=== PATIENT | male | born 1950 | race Caucasian/White ===

== ENCOUNTER 2024-12-09 19:55 | Inpatient (IN) | payer MEDICARE, OTHER, SELFPAY ==
[2024-12-09] VITALS (19 sets, daily range): BP systolic 92–119; BP diastolic 59–104; BMI 22.2; BMI 23.9
[2024-12-09 14:32] LABS: % Basophils 0.5 % (0-2); % Eosinophils 0.3 % (0-6); % Immature Granulocytes 0.5 % (0-0.5); % Monocytes 11.2 % (1.7-9.3); % Neutrophils 68.5 % (42.2-75.2); Absolute Basophils 0.1 10^3/uL (0-0.2); Absolute Immature Granulocytes 0.1 10^3/uL (0-0.05); Absolute Lymphocytes 1.9 10^3/uL (1.2-3.4); Absolute Monocytes 1.1 10^3/uL (0.1-0.6); Absolute Neutrophils 6.8 10^3/uL (1.4-6.5); Hematocrit 40.9 % (39.0-52.0); Hemoglobin 14.2 g/dL (13.0-18.0); Mean Corp Hgb Conc. 34.7 g/dL (33.0-37.0); Mean Corpuscular Hgb 30.9 pg (27.0-31.0); Mean Corpuscular Volume 88.9 fL (80.0-94.0); Mean Platelet Volume 11.4 fL (7.4-10.4); Nucleated Red Blood Cells % 0 % (-); Platelet Count 235 10^3/uL (130-400); Red Cell Dist. Width 14.7 % (11.5-14.5); White Blood Cell Count 9.9 10^3/uL (4.8-10.8)
[2024-12-09 14:56] LABS: ALT (SGPT) 245 U/L (0-50); AST (SGOT) 172 U/L (17-59); Albumin 4.5 g/dl (3.5-5.0); Alkaline Phosphatase 90 U/L (38-126); Blood Urea Nitrogen 50 mg/dl (9-20); Calcium 9.6 mg/dl (8.4-10.2); Carbon Dioxide 19 mmol/L (22-30); Chloride 102 mmol/L (98-107); Estimated Creatinine Clearance 39 ml/min; Glucose 121 mg/dl (70-99); Potassium 5.6 mmol/L (3.5-5.1); Sodium 128 mmol/L (135-145); Total Bilirubin 3.5 mg/dl (0.2-1.3); Total Protein 6.5 g/dl (6.3-8.2); Troponin I 0.025 ng/ml
--- NOTE | 2024-12-09 16:18 | CON.CAR ---
Addendum entered and electronically signed by Fracisco Aguilar DO 12/10/24 09:07:
I saw and examined the patient 12/09/2024 4:45PM
The Respiratory Therapy Aide's note was reviewed and I agree with the note.
Comment:
Plan:
He has had progressive dyspnea and has had outpt eval with his physician practice coordinator and [facility] CT surgery as well as CT surgery at [facility]. He is s tentative for MV surgery in December 2024 pending outpt testing which is already scheduled including cath (12/30),
KACY (12/20), CT Angio chest (12/24). He presents with newer onset AFib and has been started on Eliquis and Toprol by his physician practice coordinator.
With progressive dyspnea, he has presented to as he did not want to go to [facility]. Appears to be in HF and will give Lasix 40 mg IV X 1 and monitor daily wts and Is and cr. He has RI and elevated LFTs and pBNP.
IV Cardizem for rate control for aFib with transition back to oral AV jay blocking therapy. He may require KACY/cv if we are unable to get adequate rate control and symptom improvement. His MV can be evaluated at that time if he ends up requiring
KACY.
Check 2D echo
Records requested from [facility].
Discussed with son at bedside. They were appreciative.
Original Note:
Consultation
Consultation Request
Date/Time Consultation Requested: 12/09/24
Date/Time Consultation Performed: 12/09/24
Requesting Provider: Dr. Larsen in the ER
Performing Provider: Dr. Aguilar
Reason for Consultation: A-fib with rapid ventricular response
Medical History
-
History of Present Illness:
Patient is a 74-year-old male with past medical history significant for asthma, GERD, chronic mild elevation of LFTs and mitral valve regurgitation RASCON associated with exertional dizziness and palpitations. Patient reports around Thanksgiving of
2023 started noticing functional decline and reduced exercise tolerance. He was found to have moderate mitral regurgitation on echo in April 2024. He underwent stress echo in September 2024 which demonstrated severe mitral regurgitation with
moderate tricuspid regurgitation and severe pulmonary hypertension with PAP of 75 mmHg. Stress test did not show any acute ischemia. He did CT surgery Dr. Jeff at [facility] regarding discussion of mitral valve surgery. He
reported he wanted to wait until the fall and has not had a catheterization. Patient reports 2 weeks ago he developed significant GI illness with nausea and vomiting. Since that time he is felt poorly with poor appetite, abdominal bloating,
progressively worsening shortness of breath, exertional dizziness list/lightheadedness and palpitations. He purchased a smart watch who told him he was in atrial fibrillation and PCP started Toprol 25 mg and Eliquis within the last week. Patient's
symptoms have progressed and he was told to come to emergency room for evaluation. Patient's initial ECG is Afib with RVR. Labs with several abnormalities of unknown chronicity including Cre of 1.7, potassium 5.6, sodium 128 and AST/ALT 172/245,
all labs are being evaluated without previous for comparison. Initial Troponin was normal at 0.025 and pro-BNP 4880. CXR read as small B/L pleural effusions.
PMH:
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
Severe PHTN
RBBB of unknown chronicity
Asthma
GERD
Past Medical History
Past Medical History: Other (in HPI)
Past Surgical History: Other (hernia repair)
Social History
Tobacco: Former Smoker (Remote smoking in college)
Alcohol: Daily (1 to 2 glasses of bourbon or wine daily)
Drug: None
Personal:
Living: With Family
Employment: Retired
Family History
Family History: CAD (Brother had CO and at 62) and Cancer (Mother)
Allergies / Home Medications
Allergy/AdvReac Type Severity Reaction Status Date / Time
No Known Allergies Allergy Unverified 12/09/24 14:10
Review of Systems
-
History Source: Patient
All other systems: Negative unless noted
Physical Exam
Vital Signs
Pulse Resp BP Pulse Ox
126 22 113/80 98
12/09/24 14:45 12/09/24 14:45 12/09/24 14:05 12/09/24 14:45
GEN: No distress, awake, Ox3, lying in bed
HEENT: supple, mild scleral icterus, mmm
LUNGS: Diminished breath sounds at bases with few fine crackles CTA, no wheezes/rales
CV: Irregularly irregular, tachycardic, S1/S2, 3/6 blowing murmur at apex associated with click
ABD: soft, BS+, NT/ND
EXT: Trace edema, no clubbing or cyanosis
NEURO: Gross non-focal
SKIN: No rash, warm, dry, pink
Lab Results
12/09/24 14:16
12/09/24 14:16
Troponin I 0.025 ng/ml 12/09/24 14:16
Impression / Plan
-
PCP: Brian James
Card: Dr. [facility]
Cardiothoracic surgeon Dr. Jeff at [facility]
Impression:
Presents 12/09/2024 with progressively worsening dyspnea on exertion, exertional shortness of breath, palpitations
Atrial fibrillation with rapid ventricular response
Acute HF with preserved ejection fraction, proBNP 4880
Abnormal LFTs
IVORY
Hyperkalemia
Hyponatremia
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
Severe PHTN
RBBB of unknown chronicity
Asthma
GERD
Echo 05/22/2024: EF 6060 to 65%. No regional LV wall motion abnormalities. LVH. Grade 2 diastolic dysfunction. Severe left atrial dilation with left atrium volume index severely increased. Normal RV size and function. Moderate mitral
regurgitation with posterior leaflet moderately prolapsed.
Stress echo 10/04/2024: Baseline echo EF 60 to 65%. Moderately dilated LA, mild dilated RA. Severe mitral regurgitation with prolapse of posterior leaflet. Moderate tricuspid regurgitation with PAP of 75 mmHg. 9 minutes on Ren protocol achieving
92% predicted max heart rate. No wall motion abnormalities appeared at stress. Severe mitral regurgitation post exercise
Plan:
- Presents 12/09/2024 with progressively worsening dyspnea on exertion, exertional shortness of breath, palpitations
- Found to be in Atrial fibrillation with rapid ventricular response with right bundle branch block. Appears to be new diagnosis within last 2 weeks probably exacerbated by severe MR.. Was started on Toprol 25 mg and Eliquis 5 mg twice a day as
outpatient within last week. Hold Toprol for now
- Will start IV diltiazem drip for rate control. If unable to tolerate due to hypotension could consider KACY/CV.
- Continue Eliquis 5 mg twice a day
- Acute HF with preserved ejection fraction, proBNP 4880. Likely exacerbated by severe MR/MVP and atrial fibrillation with rapid ventricular response
- Give 40 mg IV Lasix now. Monitor and assess response
- Abnormal LFTs. Patient reports he always has mildly elevated LFTs. Possibly hepatic congestion. He does admit to having GI illness approximately 2 weeks ago with nausea and vomiting. Would consider imaging of abdomen.
- IVORY with patient reported previous normal creatinine. Possibly cardiorenal syndrome. Monitor with IV diuresis
- Electrolyte derangement with hyperkalemia, potassium 5.6 and Hyponatremia sodium 128. Follow closely with diuresis. Repeat labs in a.m.
- Would repeat echocardiogram this admission
-Outpatient cardiology records as well as CT surgeon consultation from [facility] obtained and reviewed.
- Plan discussed with patient and son who was at bedside
HPI 12/09/2024:
Patient is a 74-year-old male with past medical history significant for asthma, GERD, chronic mild elevation of LFTs and mitral valve regurgitation RASCON associated with exertional dizziness and palpitations. Patient reports around Thanksgiving of
2023 started noticing functional decline and reduced exercise tolerance. He was found to have moderate mitral regurgitation on echo in April 2024. He underwent stress echo in September 2024 which demonstrated severe mitral regurgitation with
moderate tricuspid regurgitation and severe pulmonary hypertension with PAP of 75 mmHg. Stress test did not show any acute ischemia. He did CT surgery Dr. Jeff at [facility] regarding discussion of mitral valve surgery. He
reported he wanted to wait until the fall and has not had a catheterization. Patient reports 2 weeks ago he developed significant GI illness with nausea and vomiting. Since that time he is felt poorly with poor appetite, abdominal bloating,
progressively worsening shortness of breath, exertional dizziness list/lightheadedness and palpitations. He purchased a smart watch who told him he was in atrial fibrillation and PCP started Toprol 25 mg and Eliquis within the last week. Patient's
symptoms have progressed and he was told to come to emergency room for evaluation. Patient's initial ECG is Afib with RVR. Labs with several abnormalities of unknown chronicity including Cre of 1.7, potassium 5.6, sodium 128 and AST/ALT 172/245,
all labs are being evaluated without previous for comparison. Initial Troponin was normal at 0.025 and pro-BNP 4880. CXR read as small B/L pleural effusions.
Data Reviewed
-
EKG: Report Reviewed by me, Discussed with Physician, Discussed with Patient and Discussed with Family
Radiology: Report Reviewed by me, Discussed with Physician, Discussed with Patient and Discussed with Family
Labs: Labs Reviewed by me, Discussed with Physician, Discussed with Patient and Discussed with Family
Old Records: Reviewed
[2024-12-09 16:19] LABS: NT-proBNP 4880 pg/ml
--- NOTE | 2024-12-09 16:31 | ED.GENMED ---
History of Present Illness
General
Chief Complaint: Cardiac Symptoms
Time Seen by Provider: 12/09/24 15:10
History of Present Illness
History of Present Illness:
74-year-old male with history of mitral valve regurgitation and pulmonary hypertension presenting to the emergency department for worsening dyspnea. Patient reports symptoms have been ongoing for several months, however have seemed to worsen in the
past several weeks. Notes dizziness upon standing, worsening dyspnea with any type of exertion, orthopnea, lower extremity edema. Reports that he was out of state on a trip. He got a watch that did that he was in A-fib. He called his
licensing registration examiner, who is through [facility]. Exit Booth Agent started him on Eliquis 3 days ago, as well as metoprolol for suspected new onset A-fib. Does note some chest discomfort. Also reports decreased appetite. He follows with a cardiothoracic
surgeon at [place], is scheduled to get his mitral valve repaired at some point in the near future. Denies fever. Denies abdominal pain. Denies additional acute medical complaint
Phy Exam
Physical Exam
Physical Exam:
General: Well-appearing, no clinical signs of dehydration, nontoxic and in no acute distress
HEENT: protecting airway
Neck: appears supple
CV: Irregularly irregular rhythm, tachycardic
Resp: No accessory muscle use, no increased work of breathing, crackles at the bases
Abd: No distention
Extremities: No deformities, mild lower extremity pitting edema without any erythema or warmth
Neuro: alert, no focal neurologic deficit
: deferred
Rectal: deferred
Psych: Normal affect
Skin: Intact
Course
Orders/Labs/Results
Orders:
Orders
12/09/24 14:00
Electrocardiogram (*1) Urgent
Reason for Study: Palpitations
EKG- Treatment ONCE
12/09/24 14:16
Complete Blood Count/With Diff Urgent
Comprehensive Metabolic Panel Urgent
NT-proBNP Urgent
Comment: ADD ON
Troponin I Urgent
12/09/24 15:34
Add On- LAB Urgent
Tests Added?: BNP
CR Chest - 2 Views Urgent
Comment:
Reason For Exam: SOB
12/09/24 17:13
Furosemide [Lasix] 40 mg IV NOW STA
12/09/24 17:22
Echo 2D MMode Color/Doppler [Echo 2D MMode Color/Doppler] Routine
Reason for Study: Atrial fibrillation with rapid ventricular response, severe MR
Cardiology Consult: Fracisco Aguilar
12/09/24 17:30
Diltiazem 125 mg/125 ml Nss [Cardizem] 125 mg in 125 ml IV PER PROTOCOL
Continuous dose without titration in mg/hr:: 5
Additional Titration Instructions:: Do not titrate. Rate change by provider order only.
Abnormal Lab Results
12/09/24
14:16
RBC 4.60 L 10^6/uL
(4.70-6.10)
RDW 14.7 H %
(11.5-14.5)
MPV 11.4 H fL
(7.4-10.4)
Abs Immat Gran (auto) 0.1 H 10^3/uL
(0-0.05)
Absolute Neuts (auto) 6.8 H 10^3/uL
(1.4-6.5)
Absolute Monos (auto) 1.1 H 10^3/uL
(0.1-0.6)
Lymphocytes % 19.0 L %
(20.5-51.1)
Monocytes % 11.2 H %
(1.7-9.3)
Sodium 128 L mmol/L
(135-145)
Potassium 5.6 H mmol/L
(3.5-5.1)
Carbon Dioxide 19 L mmol/L
(22-30)
BUN 50 H mg/dl
(9-20)
Creatinine 1.7 H mg/dL
(0.7-1.3)
Glucose 121 H mg/dl
(70-99)
Total Bilirubin 3.5 H mg/dl
(0.2-1.3)
AST 172 H U/L
(17-59)
ALT 245 H U/L
(0-50)
12/09/24 14:16
12/09/24 14:16
Vital Signs
Initial and Last Documented VS:
Initial Vital Signs
Pulse Resp BP Pulse Ox
121 20 113/80 99
12/09/24 14:05 12/09/24 14:05 12/09/24 14:05 12/09/24 14:05
Last Documented Vital Signs
Pulse Resp BP Pulse Ox
131 23 106/87 98
12/09/24 16:45 12/09/24 16:45 12/09/24 16:31 12/09/24 16:45
MDM/Problems Addressed
MDM/Problems Addressed:
74-year-old male with history of pulmonary hypertension and mitral valve patient presenting to the emergency department for shortness of breath, dizziness, lower extremity edema. Vital signs on arrival are significant for tachycardia.
On exam patient is resting comfortably, no acute distress. EKG on arrival confirms that patient is in atrial fibrillation, which he had suspected. He believes that he has likely been in this rhythm for several weeks, however only recently detected
and started on Eliquis and metoprolol 3 days ago. Patient had been out of state so his doctor has not yet evaluated him. When he reported worsening dyspnea today, was advised to come to the hospital. Patient symptoms and physical exam do appear
consistent with mild congestive heart failure, suspected to be secondary to uncontrolled atrial fibrillation. Patient had laboratory analysis obtained prior to my assessment, shows new IVORY. Patient denies any known history of kidney dysfunction.
Potassium is also slightly elevated at 5.6 and sodium is 128. Patient dry, suspect component of dehydration as well. Will obtain chest x-ray and BNP and consult with cardiology regarding management of his new atrial fibrillation as well as heart
failure.
16:30 - Chest x-ray shows pleural effusions and BNP is greater than 4000, again consistent with CHF. Pending cardiology recommendations and plan for admission
17:40 -discussion with cardiology, plan to start diltiazem drip and administer Lasix.
*EKG
Interpreted by ED Provider?: Yes
EKG Intrepretation Date: 12/09/24
EKG Intrepretation Time: 16:36
Interpretation: abnormal
Comparison EKG: no comparison EKG present
Heart Rate: 121
Rate: tachycardiac
Rhythm: a-fib
[place]: normal axis
QRS Pattern: normal QRS
Ischemia: non-specific ST changes
*Critical Care Note
Total Time (30-74mins, 75-104mins- exclusive of procedures): Not Applicable
ED Attending Note
-
Portions of this chart may have been created with voice recognition software.� Occasional wrong word or��sound alike� substitutions may have occurred due to the inherent limitations of voice recognition software.
Discharge Plan
Departure
Referrals:
Shira Tracey DO [Family Provider] -
Interventions
Interventions:
*Risk Screen - Suicide Last Done: 12/09/24 14:05
*General Assessment Last Done: 12/09/24 14:05
ED- Pulmonary Assessment Last Done: 12/09/24 14:44
ED- Cardiac Assessment Last Done: 12/09/24 14:44
Discharge Date and Time
Print Language: CZECH
[2024-12-09] MEDS: LASIX 40 MG IV (17:48)
[2024-12-09] MEDS: CARDIZEM 125 IV (17:48)
--- NOTE | 2024-12-09 17:50 | HPS.HSE ---
Family Physician
-
Family Physician: Shira Tracey
Chief Complaint
-
Exertional Dyspnea
History of Present Illness
74M Asthma GERD severe MVR follows with [facility] for potential replacement/correction p/w progressive exercise intolerance, exertional dyspnea, orthopnea for the past few months. Especially worsening over the last few days where a few steps would
result in significant shortness of breath- prompting ED evaluation. Patient also notes a few weeks ago, he and his came down with a stomach bug that was circulating a town they visited in [place] with their RV. Reported significant nausea
vomiting diarrhea that lasted for a day or so. Denied fever chills. Since GI symptoms had resolved, patient noted poor appetite especially in the last few days. Patient also noted poor urinary output. Denied significant weight gain. Recently
diagnosed with atrial fibrillation in the last few weeks, starting after GI illness. for which he was started on Eliquis and Metoprolol. ED eval was significant for Afib RVR, Hyponatremia, Hyperkalemia, IVORY Cr 1.7 suspect cardiorenal, and mild
transaminitis with bilirubin evaluation suspect hepatic congestion. Stable respiratory status on room air at rest. HR since improved following start of Cardizem gtt in ED.
Medical History
Past Medical History
Past Medical History: Reports Other (as above)
Past Surgical History: Reports Other (as above)
Social History
Tobacco: Non-smoker
Alcohol: Occasional
Drug: None
Personal:
Living: With Family
Family History
Family History: Not pertinent (reviewed)
Allergies / Home Medications
Allergies reflects when Allergies were last updated in [employer].
Home Medications with original date entered in [employer]
Allergy/Medication List:
Allergies
Allergy/AdvReac Type Severity Reaction Status Date / Time
No Known Allergies Allergy Unverified 12/09/24 14:10
Home Medications
apixaban 5 mg tablet (Eliquis) 5 mg PO BID 12/09/24
cholecalciferol (vitamin D3) 25 mcg (1,000 unit) tablet (Vitamin D3) 25 mcg PO DAILY 12/09/24
diphenhydramine 25 mg-acetaminophen 500 mg tablet (Acetaminophen PM) 1 tab PO HSPRN PRN sleep 12/09/24
fluticasone furoate 100 mcg-vilanterol 25 mcg/dose inhalation powder (Breo Ellipta) 1 inh inhalation R DAILY 12/09/24
lansoprazole 15 mg capsule,delayed release 15 mg PO DAILY 12/09/24
metoprolol succinate 25 mg tablet,extended release 24 hr (Toprol XL) 25 mg PO DAILY 12/09/24
therapeutic multivitamin 1 tab PO DAILY 12/09/24
zoledronic acid 5 mg/100 mL in mannitol 5 %-water intravenous piggybck (Reclast) 5 mg IV Q365D 12/09/24
Review of Systems
-
A 12 point ROS was completed and negative except as noted: Yes
Constitutional: Reports Other (as below)
Physical Exam
Vital Signs
Vital Signs
Pulse Resp BP Pulse Ox
131 23 106/87 98
12/09/24 16:45 12/09/24 16:45 12/09/24 16:31 12/09/24 16:45
Physical Exam
General: Other (as below)
Laboratory Results
-
12/09/24 14:16
12/09/24 14:16
Laboratory Results
Total Bilirubin 3.5 mg/dl (0.2-1.3) H 12/09/24 14:16
AST 172 U/L (17-59) H 12/09/24 14:16
ALT 245 U/L (0-50) H 12/09/24 14:16
Alkaline Phosphatase 90 U/L (38-126) 12/09/24 14:16
Troponin I 0.025 ng/ml 12/09/24 14:16
Impression/Plan
-
ROS
General: Denies fever chills night sweats unexpected weight loss
Neuro: Denies seizure shaking loss of consciousness dizziness vertigo
Psych: denies depression hallucinations confusion manic episodes
Endocrine: Denies polyuria polydipsia polyphagia heat/cold intolerance
HEENT: Denies blindness visual disturbances epistaxis
Pulmonary: reported significant exertional dyspnea with few steps, poor exercise tolerance
Cardiovascular: reported palpitations, ankle swelling
Hematology: denies signs symptoms of anemia easy bruising/bleeding
Gastrointestinal: reported past nausea vomiting diarrhea GI illness since resolved, poor appetite
Genito-Urinary: reported poor urine output denies retention incontinence dysuria
Musculoskeletal: denies joint pain weakness
Dermatology: denies rash laceration bruising
Physical Exam
General: No pallor or cyanosis, appeared comfortable at rest with head of bed elevated
HEENT: Throat clear. PERRLA Normocephalic atraumatic, scleral icterus
NECK: Supple. No Carotid Bruits. JVD+
RESPIRATORY: Bibasilar crackles
CVS: S1, S2 irregularly irregular tachy systolic murmur 3/6
ABDOMEN: Soft, non-tender. some distension noted. BS+/normal.
EXTREMITIES: No peripheral cyanosis, ankle edema noted
JOURNALISM PROFESSOR: AOx3. Conversant Coherent
IMPRESSION:
74M Asthma GERD severe MVR follows with [facility] for potential replacement/correction p/w progressive exercise intolerance, exertional dyspnea, orthopnea for the past few months. Especially worsening over the last few days where a few steps would
result in significant shortness of breath- prompting ED evaluation. Patient also notes a few weeks ago, he and his came down with a stomach bug that was circulating a town they visited in [place] with their RV. Reported significant nausea
vomiting diarrhea that lasted for a day or so. Denied fever chills. Since GI symptoms had resolved, patient noted poor appetite especially in the last few days. Patient also noted poor urinary output. Denied significant weight gain. Recently
diagnosed with atrial fibrillation in the last few weeks, starting after GI illness. for which he was started on Eliquis and Metoprolol. ED eval was significant for Afib RVR, Hyponatremia, Hyperkalemia, IVORY Cr 1.7 suspect cardiorenal, and mild
transaminitis with bilirubin evaluation suspect hepatic congestion. Stable respiratory status on room air at rest. HR since improved following start of Cardizem gtt in ED.
PLAN:
#Acute on Chronic HFpEF
#Severe Mitral Regurgitation
#Afib RVR
#IVORY suspect Cardiorenal
#Transaminitis w/ Bilirubin elevation suspect Hepatic Congestion
#Hyponatremia likely d/t fluid overload
IVU admit
Cardio eval appreciated
cont cardizem gtt as per Cardio
Hold home Metoprolol for now
IV Lasix 40 mg BID
Fluid restriction
Daily Weight I/O
Monitor LFTs, Renal Function, Na level
follow up ECHO
Check Abd US in AM (NPO after midnight)
cont Eliquis 5 mg BID
2g Salt restriction, Cholesterol Lowering, 50 Oz fluid restriction
PT/OT eval
#Mild Hyperkalemia
monitor response to IV lasix
#Asthma
stable respiratory status on room air
no wheezing
cont home Breo Ellipta (substitutions as necessary per Pharmacy)
#GERD
cont PPI
dvt ppx Eliquis
Discussed with patient, patient's Elisa, and patient's son Lance
I spent a total of 80 minutes with the patient or on the floor. More than 50% of this time involved counseling and coordination of care.
[2024-12-09 19:14] LABS: Magnesium 2.2 mg/dl (1.6-2.3); Phosphorus 6.1 mg/dl (2.5-4.5)
[2024-12-09] MEDS: ELIQUIS 5 MG PO (22:32)
[2024-12-10] VITALS (23 sets, daily range): BP systolic 85–113; BP diastolic 57–85; PULSE 81; O2SAT 96; BMI 23.7
[2024-12-10 02:58] LABS: Hematocrit 35.7 % (39.0-52.0); Hemoglobin 12.7 g/dL (13.0-18.0); Mean Corp Hgb Conc. 35.6 g/dL (33.0-37.0); Mean Corpuscular Hgb 30.8 pg (27.0-31.0); Mean Corpuscular Volume 86.7 fL (80.0-94.0); Mean Platelet Volume 11.5 fL (7.4-10.4); Platelet Count 198 10^3/uL (130-400); Red Blood Cell Count 4.12 10^6/uL (4.70-6.10); Red Cell Dist. Width 14.5 % (11.5-14.5)
[2024-12-10 03:25] LABS: ALT (SGPT) 308 U/L (0-50); AST (SGOT) 216 U/L (17-59); Albumin 3.4 g/dl (3.5-5.0); Alkaline Phosphatase 80 U/L (38-126); Blood Urea Nitrogen 47 mg/dl (9-20); Calcium 9.1 mg/dl (8.4-10.2); Carbon Dioxide 19 mmol/L (22-30); Chloride 105 mmol/L (98-107); Estimated Creatinine Clearance 46 ml/min; Glucose 96 mg/dl (70-99); HDL Cholesterol 42 mg/dl; LDL Cholesterol, Calculated 64 mg/dl; Magnesium 2.1 mg/dl (1.6-2.3); Phosphorus 5.7 mg/dl (2.5-4.5); Potassium 4.4 mmol/L (3.5-5.1); Sodium 132 mmol/L (135-145); Total Bilirubin 3.1 mg/dl (0.2-1.3); Total Cholesterol 124 mg/dl (50-199); Total Protein 5.5 g/dl (6.3-8.2); Triglyceride 94 mg/dl (10-149); Very Low Density Lipoprotein 18 mg/dl (0-30); eGFR 49.16
[2024-12-10 03:55] LABS: TSH Reflex To Free T4 4.59 uIU/ml (0.47-4.68)
[2024-12-10 04:13] LABS: Hepatitis C Antibody Negative (Negative)
[2024-12-10] MEDS: SYMBICORT 80/4.5 MCG INHALER 2 PUFF INH ×2 (07:31→19:15)
[2024-12-10] MEDS: PROTONIX 40 MG PO (07:57)
[2024-12-10] MEDS: VITAMIN D3 (cholecalciferol) 25 MCG PO (07:57)
[2024-12-10] MEDS: THERAGRAN 1 TABLET PO (07:57)
[2024-12-10] MEDS: FLUSH (NSS) 1 FLUSH IV (07:58)
[2024-12-10] MEDS: LASIX 40 MG PO ×2 (07:58→16:02)
[2024-12-10] MEDS: ELIQUIS 5 MG PO ×2 (07:58→20:24)
--- NOTE | 2024-12-10 10:12 | PTCARENOTE ---
The patient is aaox4, vital signs are stable. Afutter/afib is noted on the monitor. Cardizem gtt is running at a set dose of 5mg/hr. He complaints of 'chest achiness' and rates it a 2/10 on scale. He does state that this he has felt this way since
being in afib and is not new.
--- NOTE | 2024-12-10 11:36 | W.PN.HOSP.TC ---
Today's Communication/Plan
-
see a/p
Assessment / Plan
Assessment / Plan
Physical Exam
General: No pallor or cyanosis, appeared comfortable at rest with head of bed elevated
HEENT: Throat clear. PERRLA Normocephalic atraumatic
NECK: Supple. No Carotid Bruits. JVD+
RESPIRATORY: Bibasilar crackles
CVS: S1, S2 irregularly irregular tachy systolic murmur 3/
ABDOMEN: Soft, non-tender. some distension noted. BS+/normal. Oneal Sign neg
EXTREMITIES: No peripheral cyanosis, ankle edema noted
BENCH WORKER HELPER: AOx3. Conversant Coherent
IMPRESSION:
74M Asthma GERD severe MVR follows with [facility] for potential replacement/correction p/w progressive exercise intolerance, exertional dyspnea, orthopnea for the past few months. Especially worsening over the last few days where a few steps would
result in significant shortness of breath- prompting ED evaluation. Patient also notes a few weeks ago, he and his came down with a stomach bug that was circulating a town they visited in [place] with their RV. Reported significant nausea
vomiting diarrhea that lasted for a day or so. Denied fever chills. Since GI symptoms had resolved, patient noted poor appetite especially in the last few days. Patient also noted poor urinary output. Denied significant weight gain. Recently
diagnosed with atrial fibrillation in the last few weeks, starting after GI illness. for which he was started on Eliquis and Metoprolol. ED eval was significant for Afib RVR, Hyponatremia, Hyperkalemia, IVORY Cr 1.7 suspect cardiorenal, and mild
transaminitis with bilirubin evaluation suspect hepatic congestion. Stable respiratory status on room air at rest. HR since improved following start of Cardizem gtt in ED.
PLAN:
#Acute on Chronic HFpEF
#Severe Mitral Regurgitation
#Afib RVR
#IVORY suspect Cardiorenal
#Hyponatremia likely d/t fluid overload
IVU admit
Cardio eval appreciated
cont cardizem gtt as per Cardio
Hold home Metoprolol for now
IV Lasix 40 mg BID
Fluid restriction
Daily Weight I/O
Monitor LFTs, Renal Function, Na level
follow up ECHO Results
cont Eliquis 5 mg BID
2g Salt restriction, Cholesterol Lowering, 50 Oz fluid restriction
PT/OT eval appreciated likely no needs
#Transaminitis w/ Bilirubin elevation suspect Hepatic Congestion
Abd US equivocal for possible acute cholecystitis
Transaminitis persists
clinically patient appears asymptomatic as far as cholecystitis is concerned
checking HIDA scan in AM, npo after midnight
#Mild Hyperkalemia resolved with diuresis
#Asthma
stable respiratory status on room air
no wheezing
cont home Breo Ellipta (substitutions as necessary per Pharmacy)
#GERD
cont PPI
dvt ppx Eliquis
I spent a total of 50 minutes with the patient or on the floor. More than 50% of this time involved counseling and coordination of care.
Anticipated Discharge: > 48 hours
Subjective/Interval History
-
Date of Service: December 10, 2024
No acute distress, sitting up comfortable in chair. Patient reports feeling well, significantly improved since start of diuresis, much less shortness of breath with exertion.
Objective Data
-
Labs:
Laboratory Results
12/10/24
02:44
WBC 8.0
Hgb 12.7 L
Hct 35.7 L
Plt Count 198
Sodium 132 L
Potassium 4.4
Chloride 105
Carbon Dioxide 19 L
BUN 47 H
Creatinine 1.5 H
Glucose 96
Calcium 9.1
Total Bilirubin 3.1 H
AST 216 H
ALT 308 H
Alkaline Phosphatase 80
Vital Signs:
Vital Signs
Temp Pulse Resp BP Pulse Ox
98 F 93 20 101/65 96
12/10/24 11:27 12/10/24 09:00 12/10/24 11:27 12/10/24 08:00 12/10/24 11:27
I&O
12/09/24 12/10/24 12/11/24
06:59 06:59 06:59
Intake Total 240 / 240
Output Total 1400 / 1400 300 / 300
Balance -1160 / -1160 -300 / -300
--- NOTE | 2024-12-10 13:42 | W.PN.CARDCBS ---
Addendum entered and electronically signed by Nigel Figueroa MD 12/10/24 15:41:
I saw and examined the patient.
The Jackaroo's note was reviewed and I agree with the note.
Comment:
GEN: No distress, awake, Ox3
HEENT: supple, anicteric, mmm
LUNGS: scatt rhonchi
CV: Irreg, S1/S2, 1/6 syst LSB, S3+
ABD: soft, BS+, NT/ND
EXT: No edema
NEURO: Gross non-focal
SKIN: No rash
Plan:
He presents with atrial flutter with rapid ventricular rates and acute heart failure with preserved ejection fraction. He has known severe mitral regurgitation was planning on KACY and cath at the [facility]. He also has abdominal
ultrasound suggesting possible cholecystitis with abnormal liver function testing. I had a lengthy discussion with him and his family.
We discussed several options. First step in either option is to assess his gallbladder and decide whether this needs intervention or not. His LFTs are abnormal. After his gallbladder is assessed we can then decide to proceed with his cardiac
issues.
Option 1 would be to pursue a rate control strategy, adjust his medication and allow him to proceed with [facility] with KACY and cath and eventual mitral valve repair.
Option 2 would be to pursue a KACY cardioversion here at [facility] and allow him to follow-up at the [facility] for his cath and eventual mitral valve repair. If we do cardiovert him we would prefer 3 to 4 weeks of uninterrupted
anticoagulation before proceeding with cardiac cath.
Option 3 would be to have him evaluated for his mitral valve repair here at [facility] with Dr. Orozco. I would proceed with a KACY and cardiac catheterization and hold off on cardioversion until he is evaluated by CT surgery to decide on timing of
mitral valve repair.
Continue Eliquis 5 mg p.o. twice daily. Continue diuresis with Lasix 40 mg IV twice daily.
He remains on a Cardizem drip. We will check his mitral valve and LVEF today. Hold off on SLG 2 inhibitors for now until his gallbladder is better assessed.
Original Note:
Today's Communication / Plan
-
Continue rate control diltiazem drip and Eliquis
HIDA scan 12/11/2024
Continue gentle diuresis with oral Lasix
Daily CMP
Official echo report pending
Impression / Plan
-
PCP: Brian James
Card: [facility]
Cardiothoracic surgeon Dr. Jeff at [facility]
Impression:
Presents 12/09/2024 with progressively worsening dyspnea on exertion, exertional shortness of breath, palpitations
Atrial fibrillation with rapid ventricular response
Acute HF with preserved ejection fraction, proBNP 4880
Abnormal LFTs, Possible acute cholecystitis on Abd ultrasound.
IVORY
Hyperkalemia
Hyponatremia
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
Severe PHTN
RBBB of unknown chronicity
Asthma
GERD
Echo 05/22/2024: EF 60-65%. No regional LV wall motion abnormalities. LVH. Grade 2 diastolic dysfunction. Severe left atrial dilation with left atrium volume index severely increased. Normal RV size and function. Moderate mitral regurgitation
with posterior leaflet moderately prolapsed.
Stress echo 10/04/2024: Baseline echo EF 60 to 65%. Moderately dilated LA, mild dilated RA. Severe mitral regurgitation with prolapse of posterior leaflet. Moderate tricuspid regurgitation with PAP of 75 mmHg. 9 minutes on Ren protocol achieving
92% predicted max heart rate. No wall motion abnormalities appeared at stress. Severe mitral regurgitation post exercise
Echo 12/10/2024: Pending. Preliminary results confirm preserved ejection fraction with severe MR/MVP and PAP estimated to be 50 mmHg. Full report to follow
Plan:
- Presents 12/09/2024 with progressively worsening dyspnea on exertion, exertional shortness of breath, palpitations
Symptomatically is improving and looks much better on examination today
- Paroxysmal atrial fibrillation/flutter with rapid ventricular response with right bundle branch block. New diagnosis within last 2 weeks probably exacerbated by severe MR. Was started on Toprol 25 mg and Eliquis 5 mg twice a day as outpatient
within last week.
Toprol currently on hold
Remains in atrial fibrillation/flutter with reasonable rate control on IV diltiazem drip. Blood pressure remains soft and does not allow for further up titration of diltiazem drip.
Continue rate control strategy until we know there is no surgical intervention warranted for possible acute cholecystitis.
If would proceed with cardioversion patient will need to remain on anticoagulation uninterrupted for 4 weeks. This could disrupt plan for cath on 12/30 at [facility]
Continue Eliquis 5 mg twice a day
-Acute HF with preserved ejection fraction, proBNP 4880. Likely exacerbated by severe MR/MVP and atrial fibrillation with rapid ventricular response
Symptomatically improving with ongoing diuresis. He did get a dose of IV Lasix 40 mg 12/09, now on oral Lasix 40 mg BID.
Creat improving 1.7 ->1.5. Potassium normalized and sodium improving. Continue to monitor
Monitor and assess response
- Abnormal LFTs. Patient reports he always has mildly elevated LFTs. He does admit to having GI illness approximately 2 weeks ago with nausea and vomiting.
Possibly hepatic congestion however now found to have abnormal abdominal ultrasound on 12/10/2024 with ' dilated with asymmetric wall thickening along the anterior aspect of the gallbladder measuring up to 9 mm. Additionally there is trace
pericholecystic free fluid. There is a negative sonographic Oneal's sign. Findings are overall equivocal for acute cholecystitis. Further evaluation with HIDA may be considered.'
HIDA scan ordered by primary service
Patient currently denying abdominal pain, nausea or vomiting. Appears less jaundice but LFTs remain elevated
-Severe MR with MVP
Seen at [facility] by CT surgery as well as CT surgery at [facility] with Dr. Jeff.
Tentative for MV surgery in December 2024 at [facility] pending outpt testing which is already scheduled including cath (12/30), KACY (12/20), CT Angio chest (12/24)
Patient and family now considering having surgery at [facility]. Ongoing discussion
Plan discussed with patient, patient's and children who are at bedside
[facility] 12/09/2024:
Patient is a 74-year-old male with past medical history significant for asthma, GERD, chronic mild elevation of LFTs and mitral valve regurgitation RASCON associated with exertional dizziness and palpitations. Patient reports around Thanksgiving of
2023 started noticing functional decline and reduced exercise tolerance. He was found to have moderate mitral regurgitation on echo in April 2024. He underwent stress echo in September 2024 which demonstrated severe mitral regurgitation with
moderate tricuspid regurgitation and severe pulmonary hypertension with PAP of 75 mmHg. Stress test did not show any acute ischemia. He did CT surgery Dr. Jeff at [facility] regarding discussion of mitral valve surgery. He
reported he wanted to wait until the fall and has not had a catheterization. Patient reports 2 weeks ago he developed significant GI illness with nausea and vomiting. Since that time he is felt poorly with poor appetite, abdominal bloating,
progressively worsening shortness of breath, exertional dizziness list/lightheadedness and palpitations. He purchased a smart watch who told him he was in atrial fibrillation and PCP started Toprol 25 mg and Eliquis within the last week. Patient's
symptoms have progressed and he was told to come to emergency room for evaluation. Patient's initial ECG is Afib with RVR. Labs with several abnormalities of unknown chronicity including Cre of 1.7, potassium 5.6, sodium 128 and AST/ALT 172/245,
all labs are being evaluated without previous for comparison. Initial Troponin was normal at 0.025 and pro-BNP 4880. CXR read as small B/L pleural effusions.
Progress Note - Skydiving Instructor
Subjective
Date of Service: December 10, 2024
Patient seen and examined. Patient's family at bedside. Reports symptomatically he is feeling considerably better
Objective
Labs:
12/10/24 02:44
12/10/24 02:44
Labs
Hgb 12.7 g/dL (13.0-18.0) L 12/10/24 02:44
Hct 35.7 % (39.0-52.0) L 12/10/24 02:44
Plt Count 198 10^3/uL (130-400) 12/10/24 02:44
Sodium 132 mmol/L (135-145) L 12/10/24 02:44
Potassium 4.4 mmol/L (3.5-5.1) 12/10/24 02:44
BUN 47 mg/dl (9-20) H 12/10/24 02:44
Creatinine 1.5 mg/dL (0.7-1.3) H 12/10/24 02:44
Glucose 96 mg/dl (70-99) 12/10/24 02:44
Troponins
12/09/24
14:16
Troponin I 0.025
Vital Signs and I&O:
Vital Signs
Temp Pulse Resp BP Pulse Ox
98 F 91 20 113/68 96
12/10/24 11:27 12/10/24 11:26 12/10/24 11:27 12/10/24 11:26 12/10/24 11:27
Vital Signs
Temp Pulse Resp BP Pulse Ox
98 F 91 20 113/68 96
12/10/24 11:27 12/10/24 11:26 12/10/24 11:27 12/10/24 11:26 12/10/24 11:27
Intake & Output
12/08/24 12/09/24 12/10/24 12/11/24
06:59 06:59 06:59 06:59
Intake Total 240 / 240
Output Total 1400 / 1400 575 / 575
Balance -1160 / -1160 -575 / -575
Physical Exam
Physical Exam
GEN: No distress, awake, Ox3, sitting in chair
HEENT: supple, anicteric, mmm
LUNGS: Clear to auscultation bilaterally, no wheezes or rales
CV: Irregularly irregular, tachycardic, S1/S2, 3/6 blowing murmur at apex associated with click
ABD: soft, BS+, NT/ND
EXT: No edema, clubbing or cyanosis
NEURO: Gross non-focal
SKIN: No rash, warm, dry, pink
--- NOTE | 2024-12-10 17:09 | CM ---
spoke to pt in room, he is pre vindep, lives with his in a 2 story home with 2 steps to enter and has a first floor set up. he denies any dme's or dc planning needs. . plan is for dc to home when medically stable.
[2024-12-10] MEDS: CARDIZEM 125 IV (20:21)
--- NOTE | 2024-12-10 22:00 | PTCARENOTE ---
Rec'd pt at change of shift. Pt AAO*3, VSS, and Afib/Aflutter on TELE monitor, HR in the 80's. Pt denies any pain or discomfort and updated on plan of care. Cardizem infusing as ordered. Pt resting with call riddle in reach and plan of care
ongoing. See MAR and flowchart for full pt care and assessment.
[2024-12-11] VITALS (10 sets, daily range): BP systolic 84–117; BP diastolic 71–82; BMI 22.6
[2024-12-11 04:01] LABS: Hemoglobin 12.4 g/dL (13.0-18.0); Mean Corp Hgb Conc. 35.4 g/dL (33.0-37.0); Mean Corpuscular Volume 87.5 fL (80.0-94.0); Mean Platelet Volume 11.7 fL (7.4-10.4); Platelet Count 189 10^3/uL (130-400); Red Cell Dist. Width 14.6 % (11.5-14.5); White Blood Cell Count 6.6 10^3/uL (4.8-10.8)
[2024-12-11 04:26] LABS: ALT (SGPT) 275 U/L (0-50); AST (SGOT) 121 U/L (17-59); Albumin 3.4 g/dl (3.5-5.0); Alkaline Phosphatase 76 U/L (38-126); Blood Urea Nitrogen 33 mg/dl (9-20); Carbon Dioxide 24 mmol/L (22-30); Chloride 108 mmol/L (98-107); Estimated Creatinine Clearance 56 ml/min; Glucose 92 mg/dl (70-99); Phosphorus 4.5 mg/dl (2.5-4.5); Potassium 3.5 mmol/L (3.5-5.1); Sodium 137 mmol/L (135-145); Total Bilirubin 2.9 mg/dl (0.2-1.3); Total Protein 5.4 g/dl (6.3-8.2); eGFR > 60.00
[2024-12-11] MEDS: PROTONIX 40 MG PO (07:54)
[2024-12-11] MEDS: THERAGRAN 1 TABLET PO (07:55)
[2024-12-11] MEDS: LASIX PO (07:55)
[2024-12-11] MEDS: VITAMIN D3 (cholecalciferol) 25 MCG PO (07:56)
[2024-12-11] MEDS: ELIQUIS 5 MG PO ×2 (07:56→20:36)
[2024-12-11] MEDS: SYMBICORT 80/4.5 MCG INHALER 2 PUFF INH ×2 (08:01→21:08)
--- NOTE | 2024-12-11 09:14 | W.PN.CARDCBS ---
Addendum entered and electronically signed by Nigel Figueroa MD 12/11/24 12:35:
I saw and examined the patient.
The Leadership Development Consultant's note was reviewed and I agree with the note.
Comment:
GEN: No distress, awake, Ox3
HEENT: supple, anicteric, mmm
LUNGS: CTA, no wheezes/rales
CV: irreg, S1/S2, 1/6 syst LSB, no gallop
ABD: soft, BS+, NT/ND
EXT: No edema
NEURO: Gross non-focal
SKIN: No rash
Plan:
Clinically he is improving. He is diuresing well. Will stop Cardizem and restart Toprol and further titrate.
Await HIDA scan and plan for possible cholecystitis.
If no plans for treatment of gallbladder we will likely proceed with KACY/cath this admission and evaluation by Dr. Orozco for mitral valve surgery.
Will repeat echo today to further evaluate aortic valve. There is concern for aortic stenosis as well.
His atrial flutter is rate controlled for now. I would hold off on cardioversion till we have a plan for possible surgery.
Original Note:
Today's Communication / Plan
-
Continue PO lasix
Stop cardizem gtt and resume Toprol
Continue Eliquis
HIDA scan today, await plan for possible cholecystis.
Possible KACY/cath later this admission for mitral valve workup.
Impression / Plan
-
PCP: Brian James
Card: Dr. Rah[facility]
Cardiothoracic surgeon Dr. Jeff at [facility]
Impression:
Presented 12/09/2024 w/ RASCON, palpitation
Atrial fibrillation with RVR
Acute HFpEF, proBNP 4880
Abnormal LFTs, Possible acute cholecystitis on Abd ultrasound.
IVORY
Hyperkalemia
Hyponatremia
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
Severe PHTN
RBBB of unknown chronicity
Asthma
GERD
Stress echo 10/04/2024: Baseline echo EF 60 to 65%. Moderately dilated LA, mild dilated RA. Severe mitral regurgitation with prolapse of posterior leaflet. Moderate tricuspid regurgitation with PAP of 75 mmHg. 9 minutes on Ren protocol achieving
92% predicted max heart rate. No wall motion abnormalities appeared at stress. Severe mitral regurgitation post exercise
Echo 05/22/2024: EF 60-65%. No regional LV wall motion abnormalities. LVH. Grade 2 diastolic dysfunction. Severe left atrial dilation with left atrium volume index severely increased. Normal RV size and function. Moderate mitral regurgitation
with posterior leaflet moderately prolapsed.
Echo 12/11/2024: Study pending
Plan:
-Presented with worsening SOB, palpitations. Admitted with rapid afib and possible cholecystitis.
-Remains in rate controlled atrial fibrillation on tele this AM. Continues on cardizem gtt @5.
-Will wean cardizem gtt today and resume Toprol 25mg daily. Will increase as needed for rate control.
-Continues on Eliquis 5mg BID.
-Also w/ concern for cholecystitis on abdominal US. HIDA scan today, 12/11. Will continue rate control alone for afib while awaiting plan for possible cholecystitis.
-LFTs improving, but remain elevated. Continue to follow as above.
-Patient has known severe MR w/ MVP by prior echo 04/2024. Has been following w/ [facility] and [facility] for possible MV surgery.
-Will need KACY and cath eventually, timing TBD pending plan for cholecystitis.
-For transthoracic echo today to reassess mitral and aortic valves.
-Diuresed briefly earlier in admission, now on PO lasix 40mg BID.
-Weight down to 157lbs 12/11. Creat improved, down to 1.2.
-Follow daily weights, I&Os.
-K 3.5. Will replete. Mag 2.0.
HPI 12/09/2024: Patient is a 74-year-old male with past medical history significant for asthma, GERD, chronic mild elevation of LFTs and mitral valve regurgitation RASCON associated with exertional dizziness and palpitations. Patient reports around
of 2023 started noticing functional decline and reduced exercise tolerance. He was found to have moderate mitral regurgitation on echo in April 2024. He underwent stress echo in September 2024 which demonstrated severe mitral
regurgitation with moderate tricuspid regurgitation and severe pulmonary hypertension with PAP of 75 mmHg. Stress test did not show any acute ischemia. He did CT surgery Dr. Jeff at [facility] regarding discussion of mitral valve
surgery. He reported he wanted to wait until the fall and has not had a catheterization. Patient reports 2 weeks ago he developed significant GI illness with nausea and vomiting. Since that time he is felt poorly with poor appetite, abdominal
bloating, progressively worsening shortness of breath, exertional dizziness list/lightheadedness and palpitations. He purchased a smart watch who told him he was in atrial fibrillation and PCP started Toprol 25 mg and Eliquis within the last week.
Patient's symptoms have progressed and he was told to come to emergency room for evaluation. Patient's initial ECG is Afib with RVR. Labs with several abnormalities of unknown chronicity including Cre of 1.7, potassium 5.6, sodium 128 and AST/ALT
172/245, all labs are being evaluated without previous for comparison. Initial Troponin was normal at 0.025 and pro-BNP 4880. CXR read as small B/L pleural effusions.
Progress Note - Cable Layer
Subjective
Date of Service: December 11, 2024
No abdominal pain.
Objective
Labs:
12/11/24 03:29
12/11/24 03:29
Labs
Hgb 12.4 g/dL (13.0-18.0) L 12/11/24 03:29
Hct 35.0 % (39.0-52.0) L 12/11/24 03:29
Plt Count 189 10^3/uL (130-400) 12/11/24 03:29
Sodium 137 mmol/L (135-145) 12/11/24 03:29
Potassium 3.5 mmol/L (3.5-5.1) 12/11/24 03:29
BUN 33 mg/dl (9-20) H 12/11/24 03:29
Creatinine 1.2 mg/dL (0.7-1.3) 12/11/24 03:29
Glucose 92 mg/dl (70-99) 12/11/24 03:29
Troponins
12/09/24
14:16
Troponin I 0.025
Vital Signs and I&O:
Vital Signs
Temp Pulse Resp BP Pulse Ox
98.3 F 90 16 99/75 99
12/11/24 07:38 12/11/24 08:04 12/11/24 08:04 12/11/24 07:55 12/11/24 08:04
Vital Signs
Temp Pulse Resp BP Pulse Ox
98.3 F 90 16 99/75 99
12/11/24 07:38 12/11/24 08:04 12/11/24 08:04 12/11/24 07:55 12/11/24 08:04
Intake & Output
12/09/24 12/10/24 12/11/24 12/12/24
06:59 06:59 06:59 06:59
Intake Total 240 / 240 480 / 480
Output Total 1400 / 1400 575 / 575
Balance -1160 / -1160 -95 / -95
Physical Exam
Physical Exam
GEN: No distress, awake, alert, oriented x3
HEENT: supple, anicteric, mmm
LUNGS: CTA b/l, no wheezes/rales
CV: irregularly irregular, S1/S2, 3/6 syst murmur
EXT: No clubbing, cyanosis, or edema
NEURO: Gross non-focal
SKIN: Warm, dry, no rash
--- NOTE | 2024-12-11 09:15 | W.PN.HOSP.TC ---
Today's Communication/Plan
-
see a/p
Assessment / Plan
Assessment / Plan
Physical Exam
General: No pallor or cyanosis, appeared comfortable at rest with head of bed elevated
HEENT: Throat clear. PERRLA Normocephalic atraumatic
NECK: Supple. No Carotid Bruits. JVD+
RESPIRATORY: Bibasilar crackles
CVS: S1, S2 irregularly irregular tachy systolic murmur 3/
ABDOMEN: Soft, non-tender. some distension noted. BS+/normal. Oneal Sign neg
EXTREMITIES: No peripheral cyanosis, ankle edema noted
SLITTING AND SHIPPING SUPERVISOR: AOx3. Conversant Coherent
IMPRESSION:
74M Asthma GERD severe MVR follows with [facility] for potential replacement/correction p/w progressive exercise intolerance, exertional dyspnea, orthopnea for the past few months. Especially worsening over the last few days where a few steps would
result in significant shortness of breath- prompting ED evaluation. Patient also notes a few weeks ago, he and his came down with a stomach bug that was circulating a town they visited in [place] with their RV. Reported significant nausea
vomiting diarrhea that lasted for a day or so. Denied fever chills. Since GI symptoms had resolved, patient noted poor appetite especially in the last few days. Patient also noted poor urinary output. Denied significant weight gain. Recently
diagnosed with atrial fibrillation in the last few weeks, starting after GI illness. for which he was started on Eliquis and Metoprolol. ED eval was significant for Afib RVR, Hyponatremia, Hyperkalemia, IVORY Cr 1.7 suspect cardiorenal, and mild
transaminitis with bilirubin evaluation suspect hepatic congestion. Stable respiratory status on room air at rest. HR since improved following start of Cardizem gtt in ED.
PLAN:
#Acute HFpEF
#Severe Mitral Regurgitation
#Afib RVR
#IVORY suspect Cardiorenal
#Hyponatremia likely d/t fluid overload
IVU admit
Cardio eval appreciated
cardizem gtt transitioned to Metoprolol as per Cardio
IV Lasix 40 mg BID
Fluid restriction
Daily Weight I/O
Monitor LFTs, Renal Function, Na level
ECHO appreciated EF 60-65% severe MR mod
cont Eliquis 5 mg BID
2g Salt restriction, Cholesterol Lowering, 50 Oz fluid restriction
PT/OT eval appreciated likely no needs
#Transaminitis w/ Bilirubin elevation suspect Hepatic Congestion d/t HF
Abd US equivocal for possible acute cholecystitis, patient however clinically asymptomatic with regards to Cholecystitis and HIDA scan neg
Transaminitis improving
#Mild Hyperkalemia resolved with diuresis
#Asthma
stable respiratory status on room air
no wheezing
cont home Breo Ellipta (substitutions as necessary per Pharmacy)
#GERD
cont PPI
dvt ppx Eliquis
Full Code
I spent a total of 45 minutes with the patient or on the floor. More than 50% of this time involved counseling and coordination of care.
Anticipated Discharge: 24 - 48 hours
Subjective/Interval History
-
Date of Service: December 11, 2024
No acute distress sitting up comfortably in bed. Overall patient reports feeling well. Denies new acute issues at this time.
Objective Data
-
Labs:
Laboratory Results
12/11/24
03:29
WBC 6.6
Hgb 12.4 L
Hct 35.0 L
Plt Count 189
Sodium 137
Potassium 3.5
Chloride 108 H
Carbon Dioxide 24
BUN 33 H
Creatinine 1.2
Glucose 92
Calcium 9.0
Total Bilirubin 2.9 H
AST 121 H
ALT 275 H
Alkaline Phosphatase 76
Vital Signs:
Vital Signs
Temp Pulse Resp BP Pulse Ox
98.3 F 90 16 99/75 99
12/11/24 07:38 12/11/24 08:04 12/11/24 08:04 12/11/24 07:55 12/11/24 08:04
I&O
12/10/24 12/11/24 12/12/24
06:59 06:59 06:59
Intake Total 240 / 240 480 / 480
Output Total 1400 / 1400 575 / 575
Balance -1160 / -1160 -95 / -95
[2024-12-11] MEDS: KCL 40 MEQ PO (12:48)
[2024-12-11] MEDS: TOPROL XL 25 MG PO ×2 (12:48→20:37)
[2024-12-11] MEDS: LASIX 40 MG PO ×2 (12:51→16:15)
--- NOTE | 2024-12-11 13:39 | PN.CDI ---
CDI
- -
CDI:
Physician Documentation Request
Admit Date: 12/09/24 19:55
Dear Doctor Fay
Patient admitted for management of heart failure.
Does not take diuretics as outpatient. No listed history of heart failure. Patient does have severe MR under evaluation.
Hospitalist refers to the heart failure as acute on chronic.
Cardiology as acute.
Please clarify which of the following accurately represents the acuity of the heart failure.
____ Acute
Acute on Chronic
____ Other
Use of terms such as suspected, likely, concern for, or probable (associated with a specific diagnosis that is being evaluated, monitored, or treated as if it exists) are acceptable and can be coded in the inpatient setting, when documented at the
time of discharge.
Thank you,
Nora Rm RN, BSN
CDI Specialist
tiger text
Please use your independent medical judgment in providing your response.
--- NOTE | 2024-12-11 15:39 | CM ---
CM following for DC planning needs.
Reviewed initial assessment. Pt. resides w/ spouse in a private, 2 ST. Functionally, patient is indep. w/ ADLs, mobility without the use of any assisted device.
Antic. DC plan is for home, no needs.
CM to follow for DC planning needs.
[2024-12-11] MEDS: LOPRESSOR 25 MG PO (16:19)
--- NOTE | 2024-12-11 18:20 | PTCARENOTE ---
Torim melyssa d/c'd per MD order, metoprolol started. Pt remain in atrial fib w/ heart rate 99-140. PA notified. Orders noted. Pt's heart rate 85-115 after another dose of metoprolol. Pt remains in a fib and is asymptomatic. Will monitor.
[2024-12-11] MEDS: KCL 20 MEQ PO (20:37)
[2024-12-12] VITALS (19 sets, daily range): BP systolic 81–136; BP diastolic 64–120; PULSE 100–125; BMI 22.7
--- NOTE | 2024-12-12 02:19 | PTCARENOTE ---
Assumed care on pt @ 1900, aaox3, denies chest pain or SOB. Afib on the monitor with HR 80-110's and occasional non sustained rates of 130-140's. BP soft, pt educated on safety measures and reporting symptoms. Call riddle within reach. Pt NPO after
midnight for possible procedures in AM. POC ongoing, call riddle within reach.
[2024-12-12 04:53] LABS: Hematocrit 38.1 % (39.0-52.0); Hemoglobin 13.3 g/dL (13.0-18.0); Mean Corp Hgb Conc. 34.9 g/dL (33.0-37.0); Mean Corpuscular Volume 88.8 fL (80.0-94.0); Mean Platelet Volume 11.3 fL (7.4-10.4); Platelet Count 220 10^3/uL (130-400); Red Blood Cell Count 4.29 10^6/uL (4.70-6.10); Red Cell Dist. Width 15.4 % (11.5-14.5); White Blood Cell Count 7.1 10^3/uL (4.8-10.8)
[2024-12-12 05:25] LABS: ALT (SGPT) 269 U/L (0-50); AST (SGOT) 119 U/L (17-59); Albumin 3.4 g/dl (3.5-5.0); Alkaline Phosphatase 105 U/L (38-126); Blood Urea Nitrogen 30 mg/dl (9-20); Calcium 9.1 mg/dl (8.4-10.2); Carbon Dioxide 23 mmol/L (22-30); Chloride 107 mmol/L (98-107); Estimated Creatinine Clearance 62 ml/min; Glucose 97 mg/dl (70-99); Magnesium 1.9 mg/dl (1.6-2.3); Phosphorus 3.5 mg/dl (2.5-4.5); Potassium 4.4 mmol/L (3.5-5.1); Sodium 136 mmol/L (135-145); Total Bilirubin 2.2 mg/dl (0.2-1.3); Total Protein 5.9 g/dl (6.3-8.2); eGFR > 60.00
--- NOTE | 2024-12-12 06:37 | PTCARENOTE ---
Pt c/o having intermittent chest 'achiness' at approx 0440, Bp 97/76, HR 90- 110 -130's with ambulation. Pt described as 'the achiness I had before I came in the hospital'. Also, c/o SOB with exertion, Pox 96-97% RA. brim presser DAINA Lama made
aware, troponin ordered and sent to lab, pending results..EKG obtained. Dr. Bowden also made aware via TT, and copy of EKG sent. Pt resting without any complaints at this time, Bp 125/110.
[2024-12-12 06:39] LABS: Troponin I 0.017 ng/ml
--- NOTE | 2024-12-12 07:28 | W.PN.CARDCBS ---
Addendum entered and electronically signed by Nigel Figueroa MD 12/12/24 09:46:
I saw and examined the patient.
The Scrap Charger's note was reviewed and I agree with the note.
Comment:
GEN: No distress, awake, Ox3
HEENT: supple, anicteric, mmm
LUNGS: CTA, no wheezes/rales
CV: Irreg, S1/S2, 1/6 syst LSB, S3+
ABD: soft, BS+, NT/ND
EXT: No edema
NEURO: Gross non-focal
SKIN: No rash
PLan:
KACY with normal LVEF and severe P2/P3 prolapse and severe mitral regurgitation. There is mild to moderate aortic stenosis present.
Will proceed with cardiac cath in AM. Stop Eliquis and start IV heparin.
With congestive heart failure and severe/wide-open MR, would prefer to keep as inpatient for mitral valve repair.
Switch Lasix back to 40 mg IV twice daily.
Increase Toprol to 50 mg p.o. twice daily for better rate control.
Will discuss with CT surgery.
Original Note:
Today's Communication / Plan
-
-KACY today
-likely cath tomorrow
-increase Toprol for better rate control
Impression / Plan
-
PCP: Brian James
Card: Dr. Rahman [facility]
Cardiothoracic surgeon Dr. Jeff at [facility]
Impression:
Presented 12/09/2024 w/ RASCON, palpitation
Atrial fibrillation with RVR
Acute HFpEF, proBNP 4880
Abnormal LFTs, Possible acute cholecystitis on Abd ultrasound, but HIDA 12/11/2024 without obstruction
IVORY
Hyperkalemia
Hyponatremia
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
Severe PHTN
RBBB of unknown chronicity
Asthma
GERD
Stress echo 10/04/2024: Baseline echo EF 60 to 65%. Moderately dilated LA, mild dilated RA. Severe mitral regurgitation with prolapse of posterior leaflet. Moderate tricuspid regurgitation with PAP of 75 mmHg. 9 minutes on Ren protocol achieving
92% predicted max heart rate. No wall motion abnormalities appeared at stress. Severe mitral regurgitation post exercise
Echo 05/22/2024: EF 60-65%. No regional LV wall motion abnormalities. LVH. Grade 2 diastolic dysfunction. Severe left atrial dilation with left atrium volume index severely increased. Normal RV size and function. Moderate mitral regurgitation
with posterior leaflet moderately prolapsed.
Echo 12/11/2024: nl LV size, EF 60-65%, nl wall motion, mild cLVH, mildly dilated RV, sev MR due to prolapse of post MV leaflet, mod (54/30mmHg, HOLDEN 1.1cm2), mild TR, PAP 55-60 mmHg
Plan:
-Presented with worsening SOB, palpitations. Admitted with rapid afib and possible cholecystitis.
-Remains in atrial fibrillation on tele this AM. Telem personally reviewed: afib 80s- 130s.
-Cardizem gtt weaned yest and transitioned to Toprol 25 mg BID.
-pt reported chest achiness this a.m., reports he's had it intermittantly for past 2 weeks, particularly when bending over/leaning over. Currently CP free. Troponin 0.017 this a.m., was 0.025 on admit 12/09/2024. EKG stable: atrial fibrillation
RBBB.
- Will increase Toprol to 50 mg bid for better rate control, getting cath 12/13/2024 in anticipation of MV surgery
-Patient has known severe MR w/ MVP by prior echo 04/2024. Has been following w/ [facility] for possible MV surgery. Pt now would like to proceed with surgery here with Dr Orozco.
-TTE 12/12/2024 w/ sev MR due to post MV prolapse, nl LV size and fxn, RV mild dilated, PAP 55-60, mod
-KACY today. Pt NPO and Eliquis placed on hold for probable cath tomorrow
-Also w/ concern for cholecystitis on abdominal US. HIDA scan 12/11/2024: no evidence of cystic duct or common bile duct obstruction. Will continue rate control alone for afib while awaiting plan for possible cholecystitis.
-LFTs improving, but remain elevated. Continue to follow as above.
-Diuresed briefly earlier in admission, now on PO lasix 40mg BID.
-Weight up 1 lb overnight to 158lbs 12/12, since admit wt . Creat improved, down to 1.1 12/12/2024 (1.7 on admission 12/09).
-Follow daily weights, I&Os.
-K 4.4 after repletion 12/11. Will replete. Mag 1.9.
HPI 12/09/2024: Patient is a 74-year-old male with past medical history significant for asthma, GERD, chronic mild elevation of LFTs and mitral valve regurgitation RASCON associated with exertional dizziness and palpitations. Patient reports around
Thanksgiving of 2023 started noticing functional decline and reduced exercise tolerance. He was found to have moderate mitral regurgitation on echo in April 2024. He underwent stress echo in September 2024 which demonstrated severe mitral
regurgitation with moderate tricuspid regurgitation and severe pulmonary hypertension with PAP of 75 mmHg. Stress test did not show any acute ischemia. He did CT surgery Dr. Jeff at [facility] regarding discussion of mitral valve
surgery. He reported he wanted to wait until the fall and has not had a catheterization. Patient reports 2 weeks ago he developed significant GI illness with nausea and vomiting. Since that time he is felt poorly with poor appetite, abdominal
bloating, progressively worsening shortness of breath, exertional dizziness list/lightheadedness and palpitations. He purchased a smart watch who told him he was in atrial fibrillation and PCP started Toprol 25 mg and Eliquis within the last week.
Patient's symptoms have progressed and he was told to come to emergency room for evaluation. Patient's initial ECG is Afib with RVR. Labs with several abnormalities of unknown chronicity including Cre of 1.7, potassium 5.6, sodium 128 and AST/ALT
172/245, all labs are being evaluated without previous for comparison. Initial Troponin was normal at 0.025 and pro-BNP 4880. CXR read as small B/L pleural effusions.
Progress Note - [employer]
Subjective
Date of Service: December 12, 2024
-c/o chest achiness this am, now resolved -reports he's had it intermittantly for past 2 weeks, occurs when bending over/leaning over
-trop 0.017
-remains in afib
Objective
Labs:
12/12/24 04:30
12/12/24 04:30
Labs
Hgb 13.3 g/dL (13.0-18.0) 12/12/24 04:30
Hct 38.1 % (39.0-52.0) L 12/12/24 04:30
Plt Count 220 10^3/uL (130-400) 12/12/24 04:30
Sodium 136 mmol/L (135-145) 12/12/24 04:30
Potassium 4.4 mmol/L (3.5-5.1) D 12/12/24 04:30
BUN 30 mg/dl (9-20) H 12/12/24 04:30
Creatinine 1.1 mg/dL (0.7-1.3) 12/12/24 04:30
Glucose 97 mg/dl (70-99) 12/12/24 04:30
Troponins
12/09/24 12/12/24
14:16 05:49
Troponin I 0.025 0.017
Vital Signs and I&O:
Vital Signs
Temp Pulse Resp BP Pulse Ox
97.8 F 86 20 97/76 97
12/12/24 07:25 12/12/24 01:00 12/12/24 07:25 12/11/24 22:27 12/12/24 07:25
Vital Signs
Temp Pulse Resp BP Pulse Ox
97.8 F 86 20 97/76 97
12/12/24 07:25 12/12/24 01:00 12/12/24 07:25 12/11/24 22:27 12/12/24 07:25
Intake & Output
12/10/24 12/11/24 12/12/24 12/13/24
06:59 06:59 06:59 06:59
Intake Total 240 / 240 480 / 480 1160 / 1160
Output Total 1400 / 1400 575 / 575
Balance -1160 / -1160 -95 / -95 1160 / 1160
Physical Exam
Physical Exam
GEN: No distress, awake, Ox3
HEENT: supple, anicteric, mmm
LUNGS: CTA, no wheezes/rales
CV: tachy, irreg, irreg 3/6 systolic murmur
ABD: soft, BS+, NT/ND
EXT: No edema
NEURO: Gross non-focal
SKIN: No rash
--- NOTE | 2024-12-12 09:16 | W.PN.HOSP.TC ---
Today's Communication/Plan
-
see a/p
Assessment / Plan
Assessment / Plan
Physical Exam
General: No pallor or cyanosis, appeared comfortable at rest with head of bed elevated
HEENT: Throat clear. PERRLA Normocephalic atraumatic
NECK: Supple. No Carotid Bruits. JVD+
RESPIRATORY: ctab
CVS: S1, S2 irregularly irregular tachy systolic murmur 3/6
ABDOMEN: Soft, non-tender. some distension noted. BS+/normal. Oneal Sign neg
EXTREMITIES: No peripheral cyanosis, ankle edema noted
INSURANCE AGENTS SUPERVISOR: AOx3. Conversant Coherent
IMPRESSION:
74M Asthma GERD severe MVR follows with [facility] for potential replacement/correction p/w progressive exercise intolerance, exertional dyspnea, orthopnea for the past few months. Especially worsening over the last few days where a few steps would
result in significant shortness of breath- prompting ED evaluation. Patient also notes a few weeks ago, he and his came down with a stomach bug that was circulating a town they visited in [place] with their RV. Reported significant nausea
vomiting diarrhea that lasted for a day or so. Denied fever chills. Since GI symptoms had resolved, patient noted poor appetite especially in the last few days. Patient also noted poor urinary output. Denied significant weight gain. Recently
diagnosed with atrial fibrillation in the last few weeks, starting after GI illness. for which he was started on Eliquis and Metoprolol. ED eval was significant for Afib RVR, Hyponatremia, Hyperkalemia, IVORY Cr 1.7 suspect cardiorenal, and mild
transaminitis with bilirubin evaluation suspect hepatic congestion. Stable respiratory status on room air at rest. HR since improved following start of Cardizem gtt in ED.
PLAN:
#Acute HFpEF
#Severe Mitral Regurgitation
#Afib RVR
#IVORY suspect Cardiorenal
#Hyponatremia likely d/t fluid overload
IVU admit
Cardio eval appreciated npo after midnight for Cath
CT surgery eval appreciated
Cardizem gtt transitioned to Metoprolol as per Cardio
IV Lasix 40 mg BID
Fluid restriction
Daily Weight I/O
Monitor LFTs, Renal Function, Na level
ECHO appreciated EF 60-65% severe MR mod
KACY appreciated severe MR, mild mod
Eliquis 5 mg BID switched to hep gtt as per cardio
2g Salt restriction, Cholesterol Lowering, 50 Oz fluid restriction
PT/OT eval appreciated likely no needs
#Transaminitis w/ Bilirubin elevation suspect Hepatic Congestion d/t HF
Abd US equivocal for possible acute cholecystitis, patient however clinically asymptomatic with regards to Cholecystitis and HIDA scan neg
Transaminitis improving
#Mild Hyperkalemia resolved with diuresis
#Asthma
stable respiratory status on room air
no wheezing
cont home Breo Ellipta (substitutions as necessary per Pharmacy)
#GERD
cont PPI
dvt ppx Eliquis
Full Code
I spent a total of 45 minutes with the patient or on the floor. More than 50% of this time involved counseling and coordination of care.
Anticipated Discharge: > 48 hours
Subjective/Interval History
-
Date of Service: December 12, 2024
No acute distress sitting up comfortably in chair. Reports overall feeling well. poor sleep overnight likely d/t frequent monitoring/blood tests with hep gtt. Elisa present during evaluation.
Objective Data
-
Labs:
Laboratory Results
12/12/24
04:30
WBC 7.1
Hgb 13.3
Hct 38.1 L
Plt Count 220
Sodium 136
Potassium 4.4 D
Chloride 107
Carbon Dioxide 23
BUN 30 H
Creatinine 1.1
Glucose 97
Calcium 9.1
Total Bilirubin 2.2 H
AST 119 H
ALT 269 H
Alkaline Phosphatase 105
Vital Signs:
Vital Signs
Temp Pulse Resp BP Pulse Ox
97.8 F 115 20 106/80 97
12/12/24 07:25 12/12/24 07:27 12/12/24 07:25 12/12/24 07:27 12/12/24 07:25
I&O
12/11/24 12/12/24 12/13/24
06:59 06:59 06:59
Intake Total 480 / 480 1160 / 1160
Output Total 575 / 575
Balance -95 / -95 1160 / 1160
[2024-12-12] MEDS: PROTONIX 40 MG PO (10:05)
[2024-12-12] MEDS: KCL 20 MEQ PO (10:05)
[2024-12-12] MEDS: THERAGRAN 1 TABLET PO (10:05)
[2024-12-12] MEDS: VITAMIN D3 (cholecalciferol) 25 MCG PO (10:06)
[2024-12-12] MEDS: LASIX PO (10:07)
[2024-12-12] MEDS: TOPROL XL PO (10:07)
[2024-12-12] MEDS: LASIX 40 MG IV ×2 (10:12→16:54)
[2024-12-12] MEDS: TOPROL XL 50 MG PO ×2 (10:13→19:54)
--- NOTE | 2024-12-12 10:17 | CONSULT.CT ---
Consultation
-
Date/Time Consultation Requested: 12/12 999
Date/Time Consultation Performed: 12/12 1017
Requesting Provider: Qing LAMA
Performing Provider: Janel Orozco MD
Reason for Consultation: MV regurgitation
Patient History
Physicians
Family Physician: Brian James
Outpatient Head Trimmer: Dr. Rahman [facility]
Inpatient Head Trimmer: Carolina EUCEDA
History of Present Illness
74 y/o male with known severe MV regurgitation presented to [facility] on 12/09 with complaints of progressive exercise intolerance, exertional dyspnea, and orthopnea for the past few months. Over the last few days patient reports
significant shortness of breath which prompted the emergency room evaluation. Patient does endorse a recent GI bug when they went to [place]. At that time he was complaining of nausea, vomiting, and diarrhea about 24 hrs. Since then, GI symptoms
have resolved but endorsees a poor appetite and poor urinary output. He was also recently diagnosed with atrial fibrillation in which he was started on Eliquis and Lopressor.
While in the emergency room, he was found to be in Afib with RVR, hyponatremia, hyperkalemia, and a IVORY.
Of note, patient has been experiencing functional decline and reduced exercise tolerance since 2023. At that time, he was found to have moderate MR in April. He then underwent a stress echo on September 2024 where severe MR and moderate TR with severe
pHTN was found. He was being followed by Dr. Jeff at [facility] for his mitral regurgitation.
Stress echo 10/04/2024: Baseline echo EF 60 to 65%. Moderately dilated LA, mild dilated RA. Severe mitral regurgitation with prolapse of posterior leaflet. Moderate tricuspid regurgitation with PAP of 75 mmHg. 9 minutes on Ren protocol achieving
92% predicted max heart rate. No wall motion abnormalities appeared at stress. Severe mitral regurgitation post exercise
Echo 05/22/2024: EF 60-65%. No regional LV wall motion abnormalities. LVH. Grade 2 diastolic dysfunction. Severe left atrial dilation with left atrium volume index severely increased. Normal RV size and function. Moderate mitral regurgitation
with posterior leaflet moderately prolapsed.
KACY 12/12/2024: KACY with normal LVEF and severe P2/P3 prolapse and severe mitral regurgitation. There is mild to moderate aortic stenosis present.
[facility] scheduled for tomorrow
Past Medical History
Past Medical History: Other
IVROY
Hyperkalemia
Hyponatremia
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
Severe PHTN
RBBB of unknown chronicity
Asthma
GERD
Past Surgical History
Hernia repair
Dental History
Follows Dr Layton Q6 months; due in 2 weeks
Family History
Mother: Cause of (Biliary CA)
Father: Cause of (Emphysema)
Family Medical History: CAD (Brother)
Social History
Alcohol: Daily (1-2 bourbon/ wine)
Drug: None
Tobacco: Non-Smoker
Personal:
Living: With Spouse
Employment: Retired
Allergies
Allergy/AdvReac Type Severity Reaction Status Date / Time
No Known Allergies Allergy Unverified 12/09/24 14:10
Home Medications
�Medication �Instructions �Recorded �Confirmed �Type
apixaban 5 mg tablet (Eliquis) 5 mg PO BID Blood Clot 12/09/24 12/09/24 History
Prevention/Tx
cholecalciferol (vitamin D3) 25 25 mcg PO DAILY Supplement 12/09/24 12/09/24 History
mcg (1,000 unit) tablet (Vitamin
D3)
diphenhydramine 25 1 tab PO HSPRN PRN sleep 12/09/24 12/09/24 History
mg-acetaminophen 500 mg tablet
(Acetaminophen PM)
fluticasone furoate 100 1 inh inhalation R DAILY 12/09/24 12/09/24 History
mcg-vilanterol 25 mcg/dose Lung/Breathing Issues
inhalation powder (Breo Ellipta)
lansoprazole 15 mg capsule,delayed 15 mg PO DAILY Gastrointestinal 12/09/24 12/09/24 History
release Issue
metoprolol succinate 25 mg 25 mg PO DAILY Blood Pressure 12/09/24 12/09/24 History
tablet,extended release 24 hr
(Toprol XL)
therapeutic multivitamin 1 tab PO DAILY Supplement 12/09/24 12/09/24 History
zoledronic acid 5 mg/100 mL in 5 mg IV Q365D Bone 12/09/24 12/09/24 History
mannitol 5 %-water intravenous
piggybck (Reclast)
Review of Systems
-
History Source: Patient
General: Reports Weight Gain
HEENT: Reports No Symptoms
Respiratory: Reports SOB and RASCON
Cardiac: Reports Known Vascular Disease and Palpitations
Abdomen/GI: Reports Nausea and Vomiting
: Reports Other (Oliguria)
Musculoskeletal: Reports Edema (Trace LE edema)
Skin: Reports No Symptoms
Neurological: Reports No Symptoms
Vascular: Reports No Symptoms
Physical Exam
Vital Signs
Temp 97.8 F 12/12/24 07:25
Temp route: Oral 12/12/24 07:25
Pulse 97 12/12/24 10:12
Rhythm: Atrial fibrillation 12/11/24 22:00
With- PVC's Monomorphic, Atrial flutter 12/10/24 21:40
Resp Rate 20 12/12/24 07:25
Blood pressure 107/79 12/12/24 10:12
Blood pressure extremity used: Right upper arm 12/12/24 07:25
Position: Lying 12/12/24 07:25
MAP (cuff-Betsy Monitor) 88 12/12/24 07:27
SaO2 97 12/12/24 07:25
Oxygen Mode of Delivery Room air 12/12/24 07:25
Pulse Ox at Rest 96 12/10/24 13:05
Acceptable pain level during hospitalization? 0 12/09/24 14:05
Can the patient verbally communicate their pain? Yes 12/11/24 22:00
Actual Weight 71.9 kg 12/12/24 04:34
Body Mass Index (BMI) 22.7 12/12/24 04:34
Sitting- Blood Pressure 93/63 12/10/24 13:05
Sitting- Pulse 81 12/10/24 13:05
Heart rate after activity 98 12/10/24 13:05
Blood pressure after activity 107/69 12/10/24 13:05
Oxygen Saturation with Activity 97 12/10/24 13:05
Labs
12/12/24 04:30
Troponin I 0.017 ng/ml 12/12/24 05:49
Rjp-E-Gexxclonwfo Pept 4880 pg/ml 12/09/24 14:16
Exam
General: Well Developed, Well Nourished and No Apparent Distress
HEENT: Normocephalic and PERRLA
Respiratory: Clear
Cardiac: Irregular Rhythm and Murmur
GI: Soft and Non Tender
Rectal: Deferred by Provider
Skin: Warm and Dry
Neuro: AO x 3 and No Motor Deficits
Extremities: Pulses (+2 pulses no edema)
Lymph: No Lymphadenopathy
Psych: Calm
Assessment / Plan
-
74-year-old male with known severe mitral regurgitation presents to the emergency room with complaints of shortness of breath. He was found to have A-fib with RVR along with an IVORY and hyponatremia. KACY revealed severe MR and CT surgery was
consulted for surgical evaluation.
#Severe MR
- Patient's case will be discussed with attending physician. Further details regarding surgical timing intervention will be determined after attending physicians full evaluation
- Routine preoperative cardiothoracic surgery orders will be initiated.
- STS risk stratification score will be calculated after preoperative testing is complete
- [facility] scheduled for tomorrow
- Continue diureses as tolerated
- Tentative surgery date is MondayDecember [address]roz[address]
#Afib
- Cont Metoprol-XL and Heparin gtt
- Last Dose of Apixaban: 12/11/242035
[2024-12-12 10:45] LABS: Hematocrit 40.2 % (39.0-52.0); Hemoglobin 13.8 g/dL (13.0-18.0); Mean Corp Hgb Conc. 34.3 g/dL (33.0-37.0); Mean Corpuscular Hgb 31.2 pg (27.0-31.0); Mean Platelet Volume 11.1 fL (7.4-10.4); Platelet Count 215 10^3/uL (130-400); Red Blood Cell Count 4.42 10^6/uL (4.70-6.10); Red Cell Dist. Width 15.4 % (11.5-14.5); White Blood Cell Count 7.3 10^3/uL (4.8-10.8)
[2024-12-12] MEDS: SYMBICORT 80/4.5 MCG INHALER 2 PUFF INH ×2 (10:58→18:08)
[2024-12-12 11:06] LABS: APTT 32.1 Sec (23.4-35.0)
[2024-12-12] MEDS: HEPARIN 25000 UNITS/250 ML IV (11:33)
--- NOTE | 2024-12-12 12:16 | CM ---
CM following for DC planning needs.
Met w/ patient at bedside. Pt. reports that he is feeling well. He is planning for CATH in the AM and then anticipating CT Surgery next week.
I informed that I will be following back up with patient when spouse is here to complete pre-op teaching.
Will plan to meet w/ spouse/ pt. in next day to complete this.
Will cont. to follow.
--- NOTE | 2024-12-12 14:53 | PTCARENOTE ---
Received pt post KACY. VSS, GCS 15. Discussed findings of KACY w/ pt, as reviewed by MD. Discussed the initiation of heparin drip. Pt verbalized understanding of plan for eventual MVR w/ Dr. Orozco. Will monitor.
--- NOTE | 2024-12-12 15:46 | PTCARENOTE ---
Pt remains in atrial fib. His heart rate ranges from 94-135. Will monitor.
--- NOTE | 2024-12-12 18:41 | W.PN.UPDATE ---
Update Note
Progress Note Update
I met with Enrique Hickey at the bedside with his spouse on FaceTime. We reviewed his mitral pathology and the plan of action. He still has a few tests to clarify if he has CAD. Regardless, I feel his mitral valve is repairable, he is symptomatic,
and meets class 1 indication to move forward. He will have his afib addressed at time of surgery in the form of a MAZE and ARABELLA E. Based on his [facility], he may need CABG and Dr. Romero will interrogate invasively his AV stenosis. If he has mild , I
would refrain from replacing this valve and likely refer him down the road to TAVR. Risks and benefits of surgery were explained. All questions were answered to the best of my ability. Tentatively on schedule for me on Monday.
[2024-12-12 18:43] LABS: APTT 38.8 Sec (23.4-35.0)
--- NOTE | 2024-12-12 21:00 | PTCARENOTE ---
Assumed care on pt at 1900, hep infusing at 1050 unit/hr. Pt remains Afib on the monitor with HR 90-139's. Toprol XL given as scheduled, bp soft. Pt denies any dizziness, SOb or complaints of pain. Call riddle within reach.
[2024-12-13] VITALS (32 sets, daily range): BP systolic 76–120; BP diastolic 53–87; BMI 22.8
[2024-12-13 01:36] LABS: APTT 47.1 Sec (23.4-35.0)
[2024-12-13 04:22] LABS: Hematocrit 35.7 % (39.0-52.0); Hemoglobin 12.5 g/dL (13.0-18.0); Mean Corpuscular Hgb 30.9 pg (27.0-31.0); Mean Corpuscular Volume 88.1 fL (80.0-94.0); Mean Platelet Volume 11.3 fL (7.4-10.4); Platelet Count 206 10^3/uL (130-400); Red Blood Cell Count 4.05 10^6/uL (4.70-6.10); Red Cell Dist. Width 15.3 % (11.5-14.5); White Blood Cell Count 6.9 10^3/uL (4.8-10.8)
[2024-12-13 04:39] LABS: INR 1.45; PT 17.9 Sec (11.4-14.6)
[2024-12-13 04:40] LABS: APTT 59.4 Sec (23.4-35.0)
[2024-12-13 04:46] LABS: ALT (SGPT) 245 U/L (0-50); AST (SGOT) 87 U/L (17-59); Albumin 3.6 g/dl (3.5-5.0); Alkaline Phosphatase 109 U/L (38-126); Blood Urea Nitrogen 32 mg/dl (9-20); Calcium 8.8 mg/dl (8.4-10.2); Carbon Dioxide 23 mmol/L (22-30); Chloride 105 mmol/L (98-107); Direct Bilirubin 0.3 mg/dl (0.0-0.4); Estimated Creatinine Clearance 62 ml/min; Glucose 101 mg/dl (70-99); Phosphorus 3.6 mg/dl (2.5-4.5); Potassium 3.8 mmol/L (3.5-5.1); Sodium 134 mmol/L (135-145); Total Protein 5.7 g/dl (6.3-8.2); eGFR > 60.00
--- NOTE | 2024-12-13 07:27 | PTCARENOTE ---
Pt NPO since midnight, blood pressure low, nutrition club ambassador GLASS BEVELLER made aware, denied c/o dizziness or chest pain, no SOB. Call riddle within reach.
[2024-12-13] MEDS: SYMBICORT 80/4.5 MCG INHALER 2 PUFF INH ×2 (07:52→20:37)
[2024-12-13] MEDS: VENTOLIN NEBULES 2.5 MG INH (07:52)
[2024-12-13 08:25] LABS: APTT 77.4 Sec (23.4-35.0)
[2024-12-13 08:47] LABS: Glycohemoglobin (HgbA1c) 5.4 % (4.0-5.6)
--- NOTE | 2024-12-13 08:52 | W.PN.HOSP.TC ---
Today's Communication/Plan
-
see a/p
Assessment / Plan
Assessment / Plan
Physical Exam
General: no acute distress, appears comfortable at this time
HEENT: Throat clear. PERRLA Normocephalic atraumatic
NECK: Supple. No Carotid Bruits
RESPIRATORY: ctab
CVS: S1, S2 irregularly irregular tachy systolic murmur 3/
ABDOMEN: Soft, non-tender. some distension noted. BS+/normal. Oneal Sign neg
EXTREMITIES: No peripheral cyanosis, ankle edema noted
WORKERS COMPENSATION CLAIMS SPECIALIST: AOx3. Conversant Coherent
IMPRESSION:
74M Asthma GERD severe MVR follows with [facility] for potential replacement/correction p/w progressive exercise intolerance, exertional dyspnea, orthopnea for the past few months. Especially worsening over the last few days where a few steps would
result in significant shortness of breath- prompting ED evaluation. Patient also notes a few weeks ago, he and his came down with a stomach bug that was circulating a town they visited in [place] with their RV. Reported significant nausea
vomiting diarrhea that lasted for a day or so. Denied fever chills. Since GI symptoms had resolved, patient noted poor appetite especially in the last few days. Patient also noted poor urinary output. Denied significant weight gain. Recently
diagnosed with atrial fibrillation in the last few weeks, starting after GI illness. for which he was started on Eliquis and Metoprolol. ED eval was significant for Afib RVR, Hyponatremia, Hyperkalemia, IVORY Cr 1.7 suspect cardiorenal, and mild
transaminitis with bilirubin evaluation suspect hepatic congestion. Stable respiratory status on room air at rest. HR since improved following start of Cardizem gtt in ED.
PLAN:
#Acute HFpEF
#Severe Mitral Regurgitation
#Afib RVR
#IVORY suspect Cardiorenal
#Hyponatremia likely d/t fluid overload
IVU admit
Cardio eval appreciated npo after midnight for Cath
CT surgery eval appreciated
Cardizem gtt transitioned to Metoprolol as per Cardio later started on amio gtt
IV Lasix 40 mg BID
Fluid restriction
Daily Weight I/O
Monitor LFTs, Renal Function, Na level
ECHO appreciated EF 60-65% severe MR mod
KACY appreciated severe MR, mild mod
Eliquis 5 mg BID switched to hep gtt as per cardio
Lt and Rt heart cath noted no obstructive CAD
2g Salt restriction, Cholesterol Lowering
PT/OT eval appreciated likely no needs
#Transaminitis w/ Bilirubin elevation suspect Hepatic Congestion d/t HF
Abd US equivocal for possible acute cholecystitis, patient however clinically asymptomatic with regards to Cholecystitis and HIDA scan neg
Transaminitis improving
#Mild Hyperkalemia resolved with diuresis
#Asthma
stable respiratory status on room air
no wheezing
cont home Breo Ellipta (substitutions as necessary per Pharmacy)
#GERD
cont PPI
dvt ppx Eliquis
Full Code
I spent a total of 45 minutes with the patient or on the floor. More than 50% of this time involved counseling and coordination of care.
Anticipated Discharge: > 48 hours
Subjective/Interval History
-
Date of Service: December 13, 2024
No acute distress sitting up comfortably in chair. Overall reports feeling well. Denies new acute issues.
Objective Data
-
Labs:
Laboratory Results
12/13/24 12/13/24 12/13/24
01:09 04:09 08:05
WBC 6.9
Hgb 12.5 L
Hct 35.7 L
Plt Count 206
PT 17.9 H
INR 1.45
APTT 47.1 H 59.4 H 77.4 H
Sodium 134 L
Potassium 3.8
Chloride 105
Carbon Dioxide 23
BUN 32 H
Creatinine 1.1
Glucose 101 H
Calcium 8.8
Total Bilirubin 2.0 H
AST 87 H
ALT 245 H
Alkaline Phosphatase 109
12/13/24
14:30
WBC
Hgb
Hct
Plt Count
PT
INR
APTT Pending
Sodium
Potassium
Chloride
Carbon Dioxide
BUN
Creatinine
Glucose
Calcium
Total Bilirubin
AST
ALT
Alkaline Phosphatase
Vital Signs:
Vital Signs
Temp Pulse Resp BP Pulse Ox
97.8 F 107 18 94/78 98
12/13/24 08:22 12/13/24 08:20 12/13/24 08:22 12/13/24 08:20 12/13/24 08:22
I&O
12/12/24 12/13/24 12/14/24
06:59 06:59 06:59
Intake Total 1160 / 1160 651 / 651
Balance 1160 / 1160 651 / 651
[2024-12-13] MEDS: TOPROL XL PO ×2 (09:40→20:16)
[2024-12-13] MEDS: THERAGRAN 1 TABLET PO (10:01)
[2024-12-13] MEDS: VITAMIN D3 (cholecalciferol) 25 MCG PO (10:01)
[2024-12-13] MEDS: KCL 20 MEQ PO (10:01)
[2024-12-13] MEDS: PROTONIX 40 MG PO (10:02)
[2024-12-13] MEDS: TOPROL XL 25 MG PO (10:02)
--- NOTE | 2024-12-13 10:17 | PTCARENOTE ---
pt continues to be afib on the monitor, hr in the 90s, vss. pts bp 95/69, notified mallroy saha np. Toprol dose adjusted. given as ordered, see MAR. Pt educated on plan of care and pt verbalized understanding.
report called to manager laboratory.
--- NOTE | 2024-12-13 11:57 | PTCARENOTE ---
pt back from ccl. right radial dressing mian, right groin dressing CDI and brachial MALT HOUSE LOADER, but ecchymotic. pt offers no complaints at this time. pt educated on plan of care and pt verbalized understanding. call riddle within reach.
[2024-12-13] MEDS: LASIX IV (12:12)
--- NOTE | 2024-12-13 12:33 | ITS.CL.CATH ---
[facility] - Catheterization
Cardiac Catheterization
Procedure Report:
LEFT AND RIGHT HEART CATHETERIZATION
Date of Procedure: December 13, 2024
Referring: Chris Figueroa MD
PROCEDURES:
1. Left heart catheterization, coronary angiogram.
2. Moderate sedation.
INDICATION: Severe mitral regurgitation, preoperative
ACCESS: Right radial artery, 6Fr. sheath, under US guidance.
HEMODYNAMICS : (mmHg)
RA (m) : 20
RV (s/d,m) : 69/16, 20
PA (s/d, m) : 78/43, 57
PCWP (m) : 34 with V waves up to 38
PA saturation: 52.6% on room air
AO saturation: 91.5% on room air
RA saturation: 47% on room air
Cardiac Output : 3.54 L/min by Maricruz calculation
Cardiac Index : 1.88 L/min/m-2 by Maricruz calculation
Systemic vascular resistance: 1309 dsc^(-5)
Pulmonary vascular resistance: 6.4 genao unit
AO (s/d) : 93/69
LVEDP : 22
No significant gradient across the aortic valve to suggest aortic stenosis. Invasive transaortic mean gradient of 2.55, aortic valve area of 2.63 cm� using cardiac output of 3.53 at heart rate of 127 bpm
CORONARY FINDINGS
Dominance: Right
Left Main Trunk (LMT): Large caliber vessel that gives rise to the LAD and LCx branches and is free of angiographic disease.
Left Anterior Descending Artery (LAD): Large caliber vessel that gives off 2 major diagonal branches as it courses along the anterior inter-ventricular groove before wrapping around the cardiac apex. The LAD and its branches are free of
angiographic disease.
Left Circumflex Artery (LCx): Large caliber vessel that gives off 2 major obtuse marginal (OM) branches as it courses along the atrio-ventricular (AV) groove. The LCx and its branches are free of angiographic disease.
Ramus Intermedius (RI): The ramus intermedius artery is a branching vessel that is medium in caliber without obstructive coronary artery disease.
Right Coronary Artery (RCA): Large caliber dominant vessel that gives rise to the posterior descending artery (RPDA) and postero-lateral ventricular (RPLV) branches distally. The RCA and its branches are free of angiographic disease.
SEDATION: 37 minutes of procedural sedation was utilized. IV Midazolam and IV Fentanyl were administered. An independent medical leader was present to assist with and help manage the patient's level of consciousness and physiologic status.
RADIATION SUMMARY: Fluoro Time (min): 12.5, Dose (mGy): 327.6, DAP (Gy.cm2) : 30.5
Closure Device: There were no immediate intra-procedural complications. The sheath was pulled in the floating labor gang supervisor and a vascular-band applied to the right wrist for radial artery hemostasis using the patent hemostasis technique.
CONCLUSIONS
1. No obstructive coronary artery disease.
2. Significantly elevated right and left-sided filling pressures with reduced cardiac output and mildly elevated systemic vascular resistance with severe pulmonary hypertension.
3. No significant gradient across the aortic valve to suggest aortic stenosis.
RECOMMENDATIONS
1. Wean radial band per protocol. Monitor right hand perfusion and for bleeding from the radial site following removal of the vascular-band following trans-radial access.
2. Bedrest per protocol for right venous access.
3. Continue aggressive medical therapy and risk factor modification for secondary CAD prevention.
4. Aggressive IUGR uresis and heart rate control with underlying atrial fibrillation to optimize as best possible for MVR next week.
Copy to: Chris Figueroa MD and Delano Orozco MD
Estephania Romero MD, [facility], [facility]
--- NOTE | 2024-12-13 13:28 | W.PN.UPDATE ---
Update Note
Progress Note Update
STS Risk Score:
Procedure Type:�Isolated MVr
Perioperative Outcome Estimate %
Operative Mortality 0.965%
Morbidity & Mortality 8.84%
Stroke 1.06%
Renal Failure 1.37%
Reoperation 3.76%
Prolonged Ventilation 4.86%
Deep Sternal Wound Infection 0.034%
Long Hospital Stay (>14 days) 5.64%
Short Hospital Stay (<6 days) 33.8%
Clinical Summary
Planned Surgery: Isolated MVr, Urgent, First cardiovascular surgery
Demographics: 74 year old, male, 71.9kg, 178cm, BMI: 22.7 kg/m�
Lab Values: Creatinine: 1.1 mg/dL, Hematocrit: 40.2%, WBC Count: 7.3 10�/�L, Platelet Count: 273385 cells/�L
Substance Abuse: Never smoker, Alcohol use: 2-7 drinks/week
Risk Factors / Comorbidities: Family Hx of CAD
Pulmonary RF: Moderate CLD
Cardiac Status: Acute and chronic heart failure, NYHA Class III, Ejection Fraction = 60%
Coronary Artery Disease: None/Other
Valve Disease: Aortic Stenosis, Severe MR, Mild TR
Arrhythmia: Recent A-fib, Unknown
[2024-12-13] MEDS: CORDARONE 518 MG IV (13:47)
[2024-12-13] MEDS: VASOTEC 2.5 MG PO (15:46)
--- NOTE | 2024-12-13 15:47 | CM ---
Met w/ patient at bedside.
Pt. feels well. Plan is for CT Surgery on Monday, 12/16.
Reviewed pre and post op routines.
Reviewed post op MD appointments, Cardiac Rehab and visit from CT Transitional Care RN.
Reviewed post op restrictions.
Cardiac Surgery booklet provided.
Plan is for CT Surgery, 12/16.
Antic. DC plan is for CT Transitional Care RN.
CM to follow.
[2024-12-13] MEDS: LASIX 80 MG IV (17:46)
[2024-12-13] MEDS: HEPARIN 25000 UNITS/250 ML IV (17:46)
[2024-12-13 20:58] LABS: Urine Albumin Negative (Neg - Trace); Urine Bilirubin Negative (Negative); Urine Character Clear (Clear); Urine Color Yellow; Urine Glucose Negative (Negative); Urine Ketone Negative (Negative); Urine Leukocyte Negative (Negative); Urine Nitrite Negative (Negative); Urine Occult Blood Negative (Negative); Urine Urobilinogen Negative (Neg - 1+)
--- NOTE | 2024-12-13 23:41 | PTCARENOTE ---
Received care of patient at change of shift, sitting in chair. Blood pressure systolically in the 80's. Patient asymptomatic, and denies any dizziness. This RN instructed patient to get back in bed d/t the low bps. Patient remains hypotensive,
despite lying flat. BP checked on b/l arms, and remains systolically in the 80's. Jacquie RODRIGUES PA made aware, and at bedside. PA instructed RN to keep patient bed rest, and ok to continue Amiodarone gtt at 5mg/min. Urine sample collected and
sent to lab. Patient denies any chest pain or discomfort. Tele remains Aflutter/Afib w/ BBBC, HR in the 80-100's at rest. IV heparin gtt infusing, ptt obtained and sent to lab. Right radial site C/D/I w/ positive pulse. Patient educated on activity
restrictions. Right groin site soft upon palpation, and dressing intact. B/l DP pulses + w/ Doppler. Patient AAOx4, and can make needs known. Call riddle in reach.
[2024-12-13 23:49] LABS: APTT 54.5 Sec (23.4-35.0)
[2024-12-14] VITALS (9 sets, daily range): BP systolic 82–95; BP diastolic 67–81; BMI 22.9
[2024-12-14 06:18] LABS: Hematocrit 35.9 % (39.0-52.0); Hemoglobin 12.4 g/dL (13.0-18.0); Mean Corp Hgb Conc. 34.5 g/dL (33.0-37.0); Mean Corpuscular Hgb 30.5 pg (27.0-31.0); Mean Corpuscular Volume 88.4 fL (80.0-94.0); Mean Platelet Volume 11.2 fL (7.4-10.4); Platelet Count 186 10^3/uL (130-400); Red Blood Cell Count 4.06 10^6/uL (4.70-6.10); Red Cell Dist. Width 15.4 % (11.5-14.5); White Blood Cell Count 5.8 10^3/uL (4.8-10.8)
[2024-12-14 06:29] LABS: APTT 96.9 Sec (23.4-35.0)
[2024-12-14 06:44] LABS: ALT (SGPT) 209 U/L (0-50); AST (SGOT) 68 U/L (17-59); Albumin 3.5 g/dl (3.5-5.0); Alkaline Phosphatase 96 U/L (38-126); Blood Urea Nitrogen 28 mg/dl (9-20); Calcium 8.5 mg/dl (8.4-10.2); Carbon Dioxide 23 mmol/L (22-30); Chloride 104 mmol/L (98-107); Estimated Creatinine Clearance 62 ml/min; Glucose 100 mg/dl (70-99); Magnesium 2.1 mg/dl (1.6-2.3); Phosphorus 3.6 mg/dl (2.5-4.5); Potassium 3.7 mmol/L (3.5-5.1); Sodium 134 mmol/L (135-145); Total Bilirubin 2.6 mg/dl (0.2-1.3); Total Protein 5.7 g/dl (6.3-8.2); eGFR > 60.00
[2024-12-14] MEDS: SYMBICORT 80/4.5 MCG INHALER 2 PUFF INH ×2 (08:24→19:22)
[2024-12-14] MEDS: TOPROL XL PO (10:20)
[2024-12-14] MEDS: LASIX IV (10:21)
--- NOTE | 2024-12-14 10:24 | PTCARENOTE ---
pts bp was 94/70, asymptomatic. pt is afib/flutter on the monitor, hr in the notified mallory saha np, order to hold Toprol and Lasix. pt resting in bed, educated on plan of care and pt verbalized understanding. call riddle within reach.
[2024-12-14] MEDS: KCL 20 MEQ PO (10:47)
[2024-12-14] MEDS: PROTONIX 40 MG PO (10:47)
[2024-12-14] MEDS: THERAGRAN 1 TABLET PO (10:48)
[2024-12-14] MEDS: VITAMIN D3 (cholecalciferol) 25 MCG PO (10:48)
[2024-12-14] MEDS: HEPARIN 25000 UNITS/250 ML IV (10:51)
--- NOTE | 2024-12-14 11:41 | W.PN.CARDCBS ---
Today's Communication / Plan
-
Transition IV amiodarone to oral amiodarone
Continue IV heparin
Hold further enalapril
Continue IV Lasix
Continue optimization for mitral valve repair planned tentatively 12/16/2024
Impression / Plan
-
PCP: Brian James
Card: Dr. Rahman [facility]
Cardiothoracic surgeon Dr. Jeff at [place]
Impression:
Presented 12/09/2024 w/ RASCON, palpitation
Atrial fibrillation with RVR
Acute HFpEF, proBNP 4880
Abnormal LFTs, Possible acute cholecystitis on Abd ultrasound, but HIDA 12/11/2024 without obstruction
IVORY
Hyperkalemia
Hyponatremia
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
Severe PHTN
RBBB of unknown chronicity
Asthma
GERD
Stress echo 10/04/2024: Baseline echo EF 60 to 65%. Moderately dilated LA, mild dilated RA. Severe mitral regurgitation with prolapse of posterior leaflet. Moderate tricuspid regurgitation with PAP of 75 mmHg. 9 minutes on Ren protocol achieving
92% predicted max heart rate. No wall motion abnormalities appeared at stress. Severe mitral regurgitation post exercise
Echo 05/22/2024: EF 60-65%. No regional LV wall motion abnormalities. LVH. Grade 2 diastolic dysfunction. Severe left atrial dilation with left atrium volume index severely increased. Normal RV size and function. Moderate mitral regurgitation
with posterior leaflet moderately prolapsed.
Echo 12/11/2024: nl LV size, EF 60-65%, nl wall motion, mild cLVH, mildly dilated RV, sev MR due to prolapse of post MV leaflet, mod (54/30mmHg, HOLDEN 1.1cm2), mild TR, PAP 55-60 mmHg
Plan:
Severe symptomatic mitral regurgitation with P2/P3 severe prolapse and evidence of torn cord and mild coaptation of the mitral leaflets on KACY 12/12/2024 with overall preserved LV systolic function estimated 60%, mild to moderate aortic stenosis with
trace AI and mild to moderate tricuspid regurgitation who underwent cardiac catheterization as part of preoperative assessment found to have right dominant system with no obstructive coronary artery disease. There was no significant gradient
across the aortic valve to suggest significant aortic stenosis. LVEDP 22
- Patient's blood pressures borderline low today after today after receiving enalapril last evening; will hold
- Volume status appears better and will continue Lasix 80 mg IV twice daily
- He remains in atrial fibrillation with heart rates improved on IV amiodarone and will transition to oral amiodarone following drip at 200 mg 3 times daily
-Continue IV heparin
- Appreciate CT surgery input
- Plan for mitral valve repair Monday04/18/[address] Orozco
- Continue preoperative evaluation/optimization. For CT of the chest today
- Update provided to patient's outpatient insulator apprentice, Dr. Rahman
[facility] 12/09/2024: Patient is a 74-year-old male with past medical history significant for asthma, GERD, chronic mild elevation of LFTs and mitral valve regurgitation RASCON associated with exertional dizziness and palpitations. Patient reports around
of 2023 started noticing functional decline and reduced exercise tolerance. He was found to have moderate mitral regurgitation on echo in April 2024. He underwent stress echo in September 2024 which demonstrated severe mitral
regurgitation with moderate tricuspid regurgitation and severe pulmonary hypertension with PAP of 75 mmHg. Stress test did not show any acute ischemia. He did CT surgery Dr. Jeff at [facility] regarding discussion of mitral valve
surgery. He reported he wanted to wait until the fall and has not had a catheterization. Patient reports 2 weeks ago he developed significant GI illness with nausea and vomiting. Since that time he is felt poorly with poor appetite, abdominal
bloating, progressively worsening shortness of breath, exertional dizziness list/lightheadedness and palpitations. He purchased a smart watch who told him he was in atrial fibrillation and PCP started Toprol 25 mg and Eliquis within the last week.
Patient's symptoms have progressed and he was told to come to emergency room for evaluation. Patient's initial ECG is Afib with RVR. Labs with several abnormalities of unknown chronicity including Cre of 1.7, potassium 5.6, sodium 128 and AST/ALT
172/245, all labs are being evaluated without previous for comparison. Initial Troponin was normal at 0.025 and pro-BNP 4880. CXR read as small B/L pleural effusions.
Progress Note - Senior Housekeeper
Subjective
Date of Service: December 14, 2024
Patient seen and examined. Overall feels well with no complaints of dizziness/lightheadedness. Shortness of breath has improved.
Objective
Labs:
12/14/24 06:01
12/14/24 06:01
Labs
Hgb 12.4 g/dL (13.0-18.0) L 12/14/24 06:01
Hct 35.9 % (39.0-52.0) L 12/14/24 06:01
Plt Count 186 10^3/uL (130-400) 12/14/24 06:01
PT 17.9 Sec (11.4-14.6) H 12/13/24 04:09
INR 1.45 12/13/24 04:09
APTT 96.9 Sec (23.4-35.0) H 12/14/24 06:01
Sodium 134 mmol/L (135-145) L 12/14/24 06:01
Potassium 3.7 mmol/L (3.5-5.1) 12/14/24 06:01
BUN 28 mg/dl (9-20) H 12/14/24 06:01
Creatinine 1.1 mg/dL (0.7-1.3) 12/14/24 06:01
Glucose 100 mg/dl (70-99) H 12/14/24 06:01
Troponins
12/12/24
05:49
Troponin I 0.017
Vital Signs and I&O:
Vital Signs
Temp Pulse Resp BP Pulse Ox
98.2 F 86 16 82/69 98
12/14/24 07:47 12/14/24 08:25 12/14/24 08:25 12/14/24 05:55 12/14/24 08:25
Vital Signs
Temp Pulse Resp BP Pulse Ox
98.2 F 86 16 82/69 98
12/14/24 07:47 12/14/24 08:25 12/14/24 08:25 12/14/24 05:55 12/14/24 08:25
Intake & Output
12/12/24 12/13/24 12/14/24 12/15/24
06:59 06:59 06:59 06:59
Intake Total 1160 / 1160 651 / 651 399.9 / 399.9
Output Total 650 / 650
Balance 1160 / 1160 651 / 651 -250.1 / -250.1
Physical Exam
Physical Exam
GEN: No distress, awake, Ox3
HEENT: mmm
LUNGS: Clear to auscultation
CV: irreg, irreg 3/6 systolic murmur
ABD: soft, BS+, NT/ND
EXT: No edema: Radial cath site intact
--- NOTE | 2024-12-14 14:15 | W.PN.HOSP.TC ---
Today's Communication/Plan
-
pre-op work up as per CT surgery
cont hep gtt
rate rhythm control as per Cardio
cont diuresis
daily weight I/O
Assessment / Plan
Assessment / Plan
Physical Exam
General: no acute distress, appears comfortable at this time
HEENT: Throat clear. PERRLA Normocephalic atraumatic
NECK: Supple. No Carotid Bruits
RESPIRATORY: ctab
CVS: S1, S2 irregularly irregular tachy systolic murmur 3/
ABDOMEN: Soft, non-tender non-distended. BS+/normal.
EXTREMITIES: No peripheral cyanosis, ankle edema noted
NUCLEAR MEDICINE TECH: AOx3. Conversant Coherent
IMPRESSION:
74M Asthma GERD severe MVR follows with [facility] for potential replacement/correction p/w progressive exercise intolerance, exertional dyspnea, orthopnea for the past few months. Especially worsening over the last few days where a few steps would
result in significant shortness of breath- prompting ED evaluation. Patient also notes a few weeks ago, he and his came down with a stomach bug that was circulating a town they visited in [place] with their RV. Reported significant nausea
vomiting diarrhea that lasted for a day or so. Denied fever chills. Since GI symptoms had resolved, patient noted poor appetite especially in the last few days. Patient also noted poor urinary output. Denied significant weight gain. Recently
diagnosed with atrial fibrillation in the last few weeks, starting after GI illness. for which he was started on Eliquis and Metoprolol. ED eval was significant for Afib RVR, Hyponatremia, Hyperkalemia, IVORY Cr 1.7 suspect cardiorenal, and mild
transaminitis with bilirubin evaluation suspect hepatic congestion. Stable respiratory status on room air at rest. HR since improved following start of Cardizem gtt in ED.
PLAN:
#Acute HFpEF
#Severe Mitral Regurgitation
#Afib RVR
#IVORY suspect Cardiorenal
#Hyponatremia likely d/t fluid overload
IVU admit
Cardio eval appreciated npo after midnight for Cath
CT surgery eval appreciated
Cardizem gtt transitioned to Metoprolol as per Cardio later started on amio gtt then transitioned to PO
IV Lasix 40 mg BID
Fluid restriction
Daily Weight I/O
Monitor LFTs, Renal Function, Na level
ECHO appreciated EF 60-65% severe MR mod
KACY appreciated severe MR, mild mod
new Eliquis 5 mg BID switched to hep gtt in preparation for CT surgery
Lt and Rt heart cath noted no obstructive CAD
2g Salt restriction, Cholesterol Lowering
PT/OT eval appreciated likely no needs
#Transaminitis w/ Bilirubin elevation suspect Hepatic Congestion d/t HF
Abd US equivocal for possible acute cholecystitis, patient however clinically asymptomatic with regards to Cholecystitis and HIDA scan neg
Transaminitis improving
#Mild Hyperkalemia resolved with diuresis
#Asthma
stable respiratory status on room air
no wheezing
cont home Breo Ellipta (substitutions as necessary per Pharmacy)
#GERD
cont PPI
dvt ppx Eliquis
Full Code
I spent a total of 45 minutes with the patient or on the floor. More than 50% of this time involved counseling and coordination of care.
Anticipated Discharge: > 48 hours
Subjective/Interval History
-
Date of Service: December 14, 2024
no acute distress. comfortable. Back in sinus rhythm
Objective Data
-
Labs:
Laboratory Results
12/14/24 12/14/24
06:01 13:36
WBC 5.8
Hgb 12.4 L
Hct 35.9 L
Plt Count 186
APTT 96.9 H 152.0 H*
Sodium 134 L
Potassium 3.7
Chloride 104
Carbon Dioxide 23
BUN 28 H
Creatinine 1.1
Glucose 100 H
Calcium 8.5
Total Bilirubin 2.6 H
AST 68 H
ALT 209 H
Alkaline Phosphatase 96
Vital Signs:
Vital Signs
Temp Pulse Resp BP Pulse Ox
98.4 F 86 18 82/69 97
12/14/24 11:56 12/14/24 08:25 12/14/24 11:56 12/14/24 05:55 12/14/24 11:56
I&O
12/13/24 12/14/24 12/15/24
06:59 06:59 06:59
Intake Total 651 / 651 399.9 / 399.9 480 / 480
Output Total 650 / 650 250 / 250
Balance 651 / 651 -250.1 / -250.1 230 / 230
[2024-12-14] MEDS: PACERONE 200 MG PO ×2 (16:28→22:14)
[2024-12-14] MEDS: LASIX 40 MG IV (16:30)
[2024-12-14] MEDS: TOPROL XL 25 MG PO (19:10)
[2024-12-14 20:58] LABS: APTT 72.1 Sec (23.4-35.0)
[2024-12-15] VITALS (13 sets, daily range): BP systolic 85–105; BP diastolic 64–94; BMI 23.1
[2024-12-15 03:38] LABS: Hematocrit 35.5 % (39.0-52.0); Hemoglobin 12.3 g/dL (13.0-18.0); Mean Corp Hgb Conc. 34.6 g/dL (33.0-37.0); Mean Corpuscular Hgb 30.7 pg (27.0-31.0); Mean Corpuscular Volume 88.5 fL (80.0-94.0); Mean Platelet Volume 10.9 fL (7.4-10.4); Platelet Count 178 10^3/uL (130-400); Red Blood Cell Count 4.01 10^6/uL (4.70-6.10); Red Cell Dist. Width 15.6 % (11.5-14.5); White Blood Cell Count 6.4 10^3/uL (4.8-10.8)
[2024-12-15 03:50] LABS: APTT 108.1 Sec (23.4-35.0)
--- NOTE | 2024-12-15 04:04 | PTCARENOTE ---
Tele remains aflutter/afib w/ BBBC. HR in the 80-100's. BP 89/73, patient asymptomatic. Denies any dizziness or pain at this time. IV Heparin gtt infusing at 13.5ml/hr, ptt collected and sent to lab. Call janessa in reach.
[2024-12-15 04:09] LABS: ALT (SGPT) 181 U/L (0-50); AST (SGOT) 53 U/L (17-59); Albumin 3.7 g/dl (3.5-5.0); Alkaline Phosphatase 101 U/L (38-126); Blood Urea Nitrogen 28 mg/dl (9-20); Calcium 9.1 mg/dl (8.4-10.2); Carbon Dioxide 22 mmol/L (22-30); Chloride 106 mmol/L (98-107); Estimated Creatinine Clearance 63 ml/min; Glucose 105 mg/dl (70-99); Magnesium 2.1 mg/dl (1.6-2.3); Phosphorus 4.1 mg/dl (2.5-4.5); Potassium 3.9 mmol/L (3.5-5.1); Sodium 134 mmol/L (135-145); Total Bilirubin 2.2 mg/dl (0.2-1.3); Total Protein 5.7 g/dl (6.3-8.2); eGFR > 60.00
[2024-12-15] MEDS: HEPARIN 25000 UNITS/250 ML IV (05:48)
--- NOTE | 2024-12-15 07:32 | W.PN.HOSP.TC ---
Today's Communication/Plan
-
NPO after midnight for mitral valve repair with CT surgery
cont hep gtt
rate rhythm control as per Cardio
cont diuresis
daily weight I/O
Assessment / Plan
Assessment / Plan
Physical Exam
General: no acute distress, appears comfortable at this time
HEENT: Throat clear. PERRLA Normocephalic atraumatic
NECK: Supple. No Carotid Bruits
RESPIRATORY: ctab
CVS: S1, S2 irregularly irregular tachy systolic murmur 3/
ABDOMEN: Soft, non-tender non-distended. BS+/normal.
EXTREMITIES: No peripheral cyanosis, ankle edema noted
MANAGER WEB: AOx3. Conversant Coherent
IMPRESSION:
74M Asthma GERD severe MVR follows with Left Hand CTS for potential replacement/correction p/w progressive exercise intolerance, exertional dyspnea, orthopnea for the past few months. Especially worsening over the last few days where a few steps would
result in significant shortness of breath- prompting ED evaluation. Patient also notes a few weeks ago, he and his came down with a stomach bug that was circulating a town they visited in [place] with their RV. Reported significant nausea
vomiting diarrhea that lasted for a day or so. Denied fever chills. Since GI symptoms had resolved, patient noted poor appetite especially in the last few days. Patient also noted poor urinary output. Denied significant weight gain. Recently
diagnosed with atrial fibrillation in the last few weeks, starting after GI illness. for which he was started on Eliquis and Metoprolol. ED eval was significant for Afib RVR, Hyponatremia, Hyperkalemia, IVORY Cr 1.7 suspect cardiorenal, and mild
transaminitis with bilirubin evaluation suspect hepatic congestion. Stable respiratory status on room air at rest. HR since improved following start of Cardizem gtt in ED.
PLAN:
#Acute HFpEF
#Severe Mitral Regurgitation
#Afib RVR
#IVORY Cardiorenal Resolved following diuresis
#Hyponatremia likely d/t fluid overload significantly improved/resolved following diuresis
IVU admit
Cardizem gtt transitioned to Metoprolol as per Cardio later started on amio gtt then transitioned to PO
IV Lasix 40 mg BID
Fluid restriction
Daily Weight I/O
Monitor LFTs, Renal Function, Na level
ECHO appreciated EF 60-65% severe MR mod
KACY appreciated severe MR, mild mod
new Eliquis 5 mg BID switched to hep gtt in preparation for CT surgery
Lt and Rt heart cath noted no obstructive CAD
Diet liberalized to Regular per pt request, nonetheless notes poor appetite despite diet change
PT/OT eval appreciated likely no needs
CT surgery eval appreciated planned for 12/16 mitral valve repair
#Transaminitis w/ Bilirubin elevation suspect Hepatic Congestion d/t HF
Abd US equivocal for possible acute cholecystitis, patient however clinically asymptomatic with regards to Cholecystitis and HIDA scan neg
Transaminitis improving
#Mild Hyperkalemia resolved with diuresis
#Asthma
stable respiratory status on room air
no wheezing
cont home Breo Ellipta (substitutions as necessary per Pharmacy)
#GERD
cont PPI
dvt ppx hep gtt
Full Code
I spent a total of 45 minutes with the patient or on the floor. More than 50% of this time involved counseling and coordination of care.
Anticipated Discharge: > 48 hours
Subjective/Interval History
-
Date of Service: December 15, 2024
No acute distress sitting up comfortably in bed. Reports poor sleep though has not used prn melatonin yet, considering doing so tonight. Also notes poor appetite.
Objective Data
-
Labs:
Laboratory Results
12/14/24 12/15/24 12/15/24
20:34 03:30 09:30
WBC 6.4
Hgb 12.3 L
Hct 35.5 L
Plt Count 178
APTT 72.1 H 108.1 H Pending
Sodium 134 L
Potassium 3.9
Chloride 106
Carbon Dioxide 22
BUN 28 H
Creatinine 1.1
Glucose 105 H
Calcium 9.1
Total Bilirubin 2.2 H
AST 53
ALT 181 H
Alkaline Phosphatase 101
Vital Signs:
Vital Signs
Temp Pulse Resp BP Pulse Ox
97.9 F 88 16 89/73 96
12/15/24 03:39 12/15/24 04:00 12/15/24 03:39 12/15/24 03:39 12/15/24 03:39
I&O
12/14/24 12/15/24 12/16/24
06:59 06:59 06:59
Intake Total 399.9 / 399.9 1120 / 1120
Output Total 650 / 650 250 / 250
Balance -250.1 / -250.1 870 / 870
[2024-12-15] MEDS: SYMBICORT 80/4.5 MCG INHALER 2 PUFF INH ×2 (08:12→20:01)
[2024-12-15] MEDS: TOPROL XL 25 MG PO ×2 (08:36→19:25)
[2024-12-15] MEDS: PACERONE 200 MG PO ×3 (08:36→22:13)
[2024-12-15] MEDS: KCL 20 MEQ PO (08:37)
[2024-12-15] MEDS: PROTONIX 40 MG PO (08:37)
[2024-12-15] MEDS: THERAGRAN 1 TABLET PO (08:37)
[2024-12-15] MEDS: LASIX 40 MG IV ×3 (08:37→17:25)
[2024-12-15] MEDS: VITAMIN D3 (cholecalciferol) 25 MCG PO (08:37)
--- NOTE | 2024-12-15 09:11 | W.PN.CARDCBS ---
Today's Communication / Plan
-
Additional dose of Lasix this afternoon
Plan for mitral valve repair with Dr. Orozco tomorrow 12/16/2024
Impression / Plan
-
PCP: Brian James
Card: Dr. Rahman [facility]
Cardiothoracic surgeon Dr. Jeff at [place]
Impression:
Presented 12/09/2024 w/ RASCON, palpitation
Atrial fibrillation with RVR
Acute HFpEF, proBNP 4880
Abnormal LFTs, Possible acute cholecystitis on Abd ultrasound, but HIDA 12/11/2024 without obstruction
IVORY
Hyperkalemia
Hyponatremia
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
Severe PHTN
RBBB of unknown chronicity
Asthma
GERD
Stress echo 10/04/2024: Baseline echo EF 60 to 65%. Moderately dilated LA, mild dilated RA. Severe mitral regurgitation with prolapse of posterior leaflet. Moderate tricuspid regurgitation with PAP of 75 mmHg. 9 minutes on Ren protocol achieving
92% predicted max heart rate. No wall motion abnormalities appeared at stress. Severe mitral regurgitation post exercise
Echo 05/22/2024: EF 60-65%. No regional LV wall motion abnormalities. LVH. Grade 2 diastolic dysfunction. Severe left atrial dilation with left atrium volume index severely increased. Normal RV size and function. Moderate mitral regurgitation
with posterior leaflet moderately prolapsed.
Echo 12/11/2024: nl LV size, EF 60-65%, nl wall motion, mild cLVH, mildly dilated RV, sev MR due to prolapse of post MV leaflet, mod (54/30mmHg, HOLDEN 1.1cm2), mild TR, PAP 55-60 mmHg
Plan:
Severe symptomatic mitral regurgitation with P2/P3 severe prolapse and evidence of torn cord and mild coaptation of the mitral leaflets on KACY 12/12/2024 with overall preserved LV systolic function estimated 60%, mild to moderate aortic stenosis with
trace AI and mild to moderate tricuspid regurgitation who underwent cardiac catheterization as part of preoperative assessment found to have right dominant system with no obstructive coronary artery disease. There was no significant gradient
across the aortic valve to suggest significant aortic stenosis. LVEDP 22
- Volume status appears slightly decompensated today and discussed with CT surgery increasing Lasix to 40 mg TID
- He remains in atrial fibrillation with heart rates improved on IV amiodarone and will transition to oral amiodarone following drip at 200 mg TID
- Continue IV heparin
- Appreciate CT surgery input
- Plan for mitral valve repair Monday04/18/[address] Orozco
- Continue preoperative evaluation/optimization. For CT of the chest today
- Update provided to patient's outpatient ordnance equipment worker, Dr. Rahman
[facility] 12/09/2024: Patient is a 74-year-old male with past medical history significant for asthma, GERD, chronic mild elevation of LFTs and mitral valve regurgitation RASCON associated with exertional dizziness and palpitations. Patient reports around
of 2023 started noticing functional decline and reduced exercise tolerance. He was found to have moderate mitral regurgitation on echo in April 2024. He underwent stress echo in September 2024 which demonstrated severe mitral
regurgitation with moderate tricuspid regurgitation and severe pulmonary hypertension with PAP of 75 mmHg. Stress test did not show any acute ischemia. He did CT surgery Dr. Jeff at [facility] regarding discussion of mitral valve
surgery. He reported he wanted to wait until the fall and has not had a catheterization. Patient reports 2 weeks ago he developed significant GI illness with nausea and vomiting. Since that time he is felt poorly with poor appetite, abdominal
bloating, progressively worsening shortness of breath, exertional dizziness list/lightheadedness and palpitations. He purchased a smart watch who told him he was in atrial fibrillation and PCP started Toprol 25 mg and Eliquis within the last week.
Patient's symptoms have progressed and he was told to come to emergency room for evaluation. Patient's initial ECG is Afib with RVR. Labs with several abnormalities of unknown chronicity including Cre of 1.7, potassium 5.6, sodium 128 and AST/ALT
172/245, all labs are being evaluated without previous for comparison. Initial Troponin was normal at 0.025 and pro-BNP 4880. CXR read as small B/L pleural effusions.
Progress Note - Logistics Support
Subjective
Date of Service: December 15, 2024
Seen and examined. Uneventful night but poor sleep. A little bit more short of breath this morning
Objective
Labs:
12/15/24 03:30
12/15/24 03:30
Labs
Hgb 12.3 g/dL (13.0-18.0) L 12/15/24 03:30
Hct 35.5 % (39.0-52.0) L 12/15/24 03:30
Plt Count 178 10^3/uL (130-400) 12/15/24 03:30
PT 17.9 Sec (11.4-14.6) H 12/13/24 04:09
INR 1.45 12/13/24 04:09
APTT 108.1 Sec (23.4-35.0) H 12/15/24 03:30
Sodium 134 mmol/L (135-145) L 12/15/24 03:30
Potassium 3.9 mmol/L (3.5-5.1) 12/15/24 03:30
BUN 28 mg/dl (9-20) H 12/15/24 03:30
Creatinine 1.1 mg/dL (0.7-1.3) 12/15/24 03:30
Glucose 105 mg/dl (70-99) H 12/15/24 03:30
Vital Signs and I&O:
Vital Signs
Temp Pulse Resp BP Pulse Ox
97.7 F 83 20 103/74 97
12/15/24 07:34 12/15/24 08:37 12/15/24 07:34 12/15/24 08:37 12/15/24 07:34
Vital Signs
Temp Pulse Resp BP Pulse Ox
97.7 F 83 20 103/74 97
12/15/24 07:34 12/15/24 08:37 12/15/24 07:34 12/15/24 08:37 12/15/24 07:34
Intake & Output
12/13/24 12/14/24 12/15/24 12/16/24
06:59 06:59 06:59 06:59
Intake Total 651 / 651 399.9 / 399.9 1120 / 1120
Output Total 650 / 650 250 / 250
Balance 651 / 651 -250.1 / -250.1 870 / 870
Physical Exam
Physical Exam
GEN: No distress, awake, Ox3
HEENT: mmm
LUNGS: Clear to auscultation
CV: irreg, irreg 3/6 systolic murmur
ABD: soft, BS+, NT/ND
EXT: No edema: Radial cath site intact
[2024-12-15 10:12] LABS: APTT 106.8 Sec (23.4-35.0)
--- NOTE | 2024-12-15 19:02 | PTCARENOTE ---
~[id number]: Handoff report received from nightshift RN. Pt Aox4, Afib BBB 80s-90s on tele, + murmur present, RA satting high 90s, with RASCON. Pt denies pain at this time. OOB to chair independently. Heparin gtt infusing @ 13.5. +2 BUE pulses/ doppler
BLE DPs. No edema noted. I/Os charted. All needs met at this time, call riddle within reach.
~[id number]: 40 lasix given per order. I/Os charted. Family at bedside. VSS, no complaints at thsi time. All needs met, call riddle within reach.
~[id number]: Patient resting in room. VSS at this time, scheduled lasix given. Heparin gtt infusing and remains therapeutic at this time. All needs met, call riddle within reach.
~1900: Patient in stable condition at this time. Handoff report given to nightshift RN.
--- NOTE | 2024-12-15 22:44 | PTCARENOTE ---
Received patient at change of shift. Afib on the monitor, HR in the 100s. Doppler pedals. Heparin running as per protocol, see SEP. NPO at midnight. Pt clipped and bathed with CHG. No complaints from pt at this time, call riddle within reach.
--- NOTE | 2024-12-15 22:45 | PTCARENOTE ---
Received patient at change of shift. AV paced on the monitor, HR in the 80s. Pt requested PRN Ambien, administered as per SEP. No complaints from pt at this time, call riddle within reach.
[2024-12-16] VITALS (8 sets, daily range): BP systolic 90–125; BP diastolic 67–76; BMI 22.7
[2024-12-16 05:28] LABS: Hematocrit 36.2 % (39.0-52.0); Hemoglobin 12.5 g/dL (13.0-18.0); Mean Corp Hgb Conc. 34.5 g/dL (33.0-37.0); Mean Corpuscular Volume 89.8 fL (80.0-94.0); Mean Platelet Volume 11.4 fL (7.4-10.4); Platelet Count 171 10^3/uL (130-400); Red Blood Cell Count 4.03 10^6/uL (4.70-6.10); Red Cell Dist. Width 15.8 % (11.5-14.5); White Blood Cell Count 6.9 10^3/uL (4.8-10.8)
[2024-12-16 05:48] LABS: APTT 114.9 Sec (23.4-35.0)
[2024-12-16 05:50] LABS: ALT (SGPT) 149 U/L (0-50); AST (SGOT) 38 U/L (17-59); Albumin 3.8 g/dl (3.5-5.0); Alkaline Phosphatase 102 U/L (38-126); Blood Urea Nitrogen 25 mg/dl (9-20); Calcium 9.3 mg/dl (8.4-10.2); Carbon Dioxide 22 mmol/L (22-30); Chloride 107 mmol/L (98-107); Estimated Creatinine Clearance 57 ml/min; Glucose 96 mg/dl (70-99); Magnesium 2.1 mg/dl (1.6-2.3); Potassium 3.7 mmol/L (3.5-5.1); Sodium 135 mmol/L (135-145); Total Bilirubin 2.4 mg/dl (0.2-1.3); Total Protein 5.8 g/dl (6.3-8.2); eGFR > 60.00
[2024-12-16] MEDS: SYMBICORT 80/4.5 MCG INHALER 2 PUFF INH (08:32)
--- NOTE | 2024-12-16 09:03 | W.CVOR.SURPR ---
CVOR Surgeon Immed Pre Op
-
I have examined this patient prior to performance of the scheduled procedure.
The patient's condition is unchanged from the time of the dictated/written History and
Physical and the patient is able to undergo the scheduled procedure.
MV repair and MAZE+Clip
[2024-12-16] MEDS: PROTONIX 40 MG PO (09:54)
[2024-12-16] MEDS: LOPRESSOR 25 MG PO (09:54)
[2024-12-16] MEDS: BACTROBAN 2% OINTMENT 1 APPLIC NASAL ×2 (09:57→19:24)
[2024-12-16] MEDS: VITAMIN D3 (cholecalciferol) PO (10:26)
[2024-12-16] MEDS: KCL PO (10:27)
[2024-12-16] MEDS: THERAGRAN PO (10:27)
[2024-12-16] MEDS: TOPROL XL PO (10:27)
[2024-12-16] MEDS: PROTONIX PO (10:27)
[2024-12-16] MEDS: PACERONE PO (10:27)
[2024-12-16] MEDS: MAGNESIUM OXIDE 500 MG PO (10:28)
[2024-12-16] MEDS: LASIX IV (10:28)
--- NOTE | 2024-12-16 10:29 | PTCARENOTE ---
~[id number]: Handoff report received from nandini COLMENARES. Pt Aox4, Afib BBB 80s-100s, SBP 90s-100s. Independent in room. Significant other at bedside. CHG wipe bath and new gown given at 0900. Pre-op meds given at 1000 and Heparin gtt turned off on
call to OR. Ancef and chart transferred with patient to OR at 1015. Belongings taken to CVICU.
--- NOTE | 2024-12-16 10:53 | CM ---
Reviewed chart. Mr. Hickey is in the operating room. Prior to admission he resides with his spouse in a two story home with two steps to enter. He has a first floor set-up. Prior to admission he was independent with ambulation and adls. He does
not have any DME in the home. He has a prescription plan. Medical work-up in progress. The discharge plan is to return home with his spouse and a home visit by the Transitional Care Nurse when medically stable.
[2024-12-16 11:22] LABS: ACT+ - POC 153 Seconds (82-134)
[2024-12-16 11:36] LABS: Urine Albumin 2+ (Neg - Trace); Urine Bilirubin Negative (Negative); Urine Character Clear (Clear); Urine Color Yellow; Urine Glucose Negative (Negative); Urine Ketone Negative (Negative); Urine Leukocyte Negative (Negative); Urine Nitrite Negative (Negative); Urine Occult Blood 4+ (Negative); Urine Urobilinogen 1+ (Neg - 1+)
[2024-12-16 12:12] LABS: ACT+ - POC 419 Seconds (82-134)
[2024-12-16 12:18] LABS: Urine Amorphous Seen; Urine Red Blood Cell 16-20 /HPF (0-2); Urine Squamous Cell 0-2 /LPF (Few)
[2024-12-16 12:19] LABS: Urine Bacteria Few (Negative); Urine White Cell 0-2 /HPF (0-5)
[2024-12-16 12:25] LABS: B.E. - POC 0.6 mmol/L; Glucose - POC 102 mg/dl (70-99); HCO3 - POC 25 mmol/L (21-28); Hematocrit - POC 39 % PCV (42-52); Hemodilution- POC No; Hemoglobin Calculated - POC 13.1; Ionized Calcium - POC 1.18 mmol/L (1.15-1.33); Lactate - POC 1.13 mmol/L (0.36-0.75); O2 Saturation %Calculated-POC 98.2 % (94-98); PCO2 - POC 38 mmHg (35-48); PO2 - POC 104 mmHg (83-108); Sodium - POC 138 mmol/L (136-145); Specimen Type - POC Arterial; pH - POC 7.43 (7.35-7.45)
[2024-12-16 12:33] LABS: ACT+ - POC 489 Seconds (82-134)
[2024-12-16 12:56] LABS: ACT+ - POC 467 Seconds (82-134)
[2024-12-16 13:18] LABS: Glucose - POC 117 mg/dl (70-99); HCO3 - POC 29 mmol/L (21-28); Hematocrit - POC 34 % PCV (42-52); Hemodilution- POC Yes; Hemoglobin Calculated - POC 11.7; Ionized Calcium - POC 1.06 mmol/L (1.15-1.33); Lactate - POC 0.43 mmol/L (0.36-0.75); PCO2 - POC 48 mmHg (35-48); PO2 - POC 378 mmHg (83-108); Potassium - POC 4.8 mmol/L (3.5-5.1); Sodium - POC 139 mmol/L (136-145); Specimen Type - POC Arterial; pH - POC 7.38 (7.35-7.45)
[2024-12-16 13:26] LABS: ACT+ - POC 504 Seconds (82-134)
[2024-12-16 13:59] LABS: ACT+ - POC 528 Seconds (82-134)
[2024-12-16 14:14] LABS: Glucose - POC 122 mg/dl (70-99); HCO3 - POC 26 mmol/L (21-28); Hematocrit - POC 38 % PCV (42-52); Hemodilution- POC Yes; Ionized Calcium - POC 1.06 mmol/L (1.15-1.33); Lactate - POC 0.57 mmol/L (0.36-0.75); O2 Saturation %Calculated-POC 99.9 % (94-98); PCO2 - POC 40 mmHg (35-48); PO2 - POC 316 mmHg (83-108); Potassium - POC 4.5 mmol/L (3.5-5.1); Sodium - POC 140 mmol/L (136-145); Specimen Type - POC Arterial; pH - POC 7.42 (7.35-7.45)
[2024-12-16 14:24] LABS: ACT+ - POC 511 Seconds (82-134)
[2024-12-16 14:25] LABS: Glucose - POC 118 mg/dl (70-99); HCO3 - POC 30 mmol/L (21-28); Hematocrit - POC 32 % PCV (42-52); Hemodilution- POC Yes; Ionized Calcium - POC 1.09 mmol/L (1.15-1.33); Lactate - POC < 0.30 mmol/L (0.36-0.75); PCO2 - POC 46 mmHg (35-48); PO2 - POC 411 mmHg (83-108); Potassium - POC 3.8 mmol/L (3.5-5.1); Sodium - POC 138 mmol/L (136-145); Specimen Type - POC Arterial; pH - POC 7.42 (7.35-7.45)
[2024-12-16] MEDS: ANCEF 10 IV ×2 (14:42→15:55)
[2024-12-16 14:47] LABS: B.E. - POC -2.3 mmol/L; Glucose - POC 122 mg/dl (70-99); HCO3 - POC 22 mmol/L (21-28); Hematocrit - POC 33 % PCV (42-52); Hemodilution- POC Yes; Hemoglobin Calculated - POC 11.3; Ionized Calcium - POC 0.97 mmol/L (1.15-1.33); Lactate - POC 0.98 mmol/L (0.36-0.75); PCO2 - POC 36 mmHg (35-48); PO2 - POC 394 mmHg (83-108); Potassium - POC 4.8 mmol/L (3.5-5.1); Sodium - POC 142 mmol/L (136-145); Specimen Type - POC Arterial
[2024-12-16 14:50] LABS: ACT+ - POC 134 Seconds (82-134)
[2024-12-16 14:53] LABS: B.E. - POC -2.9 mmol/L; Glucose - POC 127 mg/dl (70-99); HCO3 - POC 22 mmol/L (21-28); Hematocrit - POC 31 % PCV (42-52); Hemodilution- POC Yes; Hemoglobin Calculated - POC 10.6; Ionized Calcium - POC 1.22 mmol/L (1.15-1.33); Lactate - POC 1.85 mmol/L (0.36-0.75); O2 Saturation %Calculated-POC 99.5 % (94-98); PCO2 - POC 37 mmHg (35-48); PO2 - POC 171 mmHg (83-108); POC Comment POST; Potassium - POC 3.8 mmol/L (3.5-5.1); Sodium - POC 141 mmol/L (136-145); Specimen Type - POC Arterial; pH - POC 7.38 (7.35-7.45)
--- NOTE | 2024-12-16 15:20 | W.PN.CARDCBS ---
Addendum entered and electronically signed by Robert Mckinley MD 12/16/24 16:17:
I saw and examined the patient.
The ACID RETORT OPERATOR or PA's note was reviewed and I agree with the note.
Comment: Sedate and intubated
Neck: Supple, no JVD, HJR, carotids +2 B/L, no bruits bilaterally.
Heart: Non displaced PMI, RRR, no murmurs, No S3, S4, no rubs.
Lungs: Scattered rhonchi
Sternal dressings noted
Extremities: No clubbing, cyanosis or edema bilaterally.
Neuro: Sedate and intubated
Patient seen immediately postop. Remains intubated. He is on dobutamine and Levophed. Plan is for extubation later today. Discussed with CT surgery and nursing.
Original Note:
Today's Communication / Plan
-
Wean sedation with plan for extubation later this evening
Wean drips as hemodynamics allow
Usual postop care
Impression / Plan
-
PCP: Brian James
Card: Dr. Rahman [facility]
Cardiothoracic surgeon Dr. Jeff at [place]
Impression:
Presented 12/09/2024 w/ RASCON, palpitation
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
s/p mitral valve repair through traditional sternotomy 12/16/2024, Dr. Orozco
Atrial fibrillation with RVR
s/p left atrial maze (combination of cryo and RF ablation) 12/16/2024, Dr. Orozco
Left atrial appendage clip 40 mm device 12/16/2024, Dr. Orozco
Acute HFpEF, proBNP 4880
Abnormal LFTs, Possible acute cholecystitis on Abd ultrasound, but HIDA 12/11/2024 without obstruction
IVORY
Hyperkalemia
Hyponatremia
Severe PHTN
RBBB of unknown chronicity
Asthma
GERD
Stress echo 10/04/2024: Baseline echo EF 60 to 65%. Moderately dilated LA, mild dilated RA. Severe mitral regurgitation with prolapse of posterior leaflet. Moderate tricuspid regurgitation with PAP of 75 mmHg. 9 minutes on Ren protocol achieving
92% predicted max heart rate. No wall motion abnormalities appeared at stress. Severe mitral regurgitation post exercise
Echo 05/22/2024: EF 60-65%. No regional LV wall motion abnormalities. LVH. Grade 2 diastolic dysfunction. Severe left atrial dilation with left atrium volume index severely increased. Normal RV size and function. Moderate mitral regurgitation
with posterior leaflet moderately prolapsed.
Echo 12/11/2024: nl LV size, EF 60-65%, nl wall motion, mild cLVH, mildly dilated RV, sev MR due to prolapse of post MV leaflet, mod (54/30mmHg, HOLDEN 1.1cm2), mild TR, PAP 55-60 mmHg
Cardiac catheterization 12/13/2024: LAD: Normal. LAD: Normal. Left circumflex: Normal. Ramus: Normal. RCA: Normal. No obstructive coronary artery disease. Significantly elevated right and left-sided filling pressures with reduced cardiac output
and mildly elevated systemic vascular resistance with severe pulmonary hypertension. Cardiac Output : 3.54 L/min by Maricruz calculation. Cardiac Index : 1.88 L/min/m-2 by Maricruz calculation. Systemic vascular resistance: 1309 dsc^(-5). Pulmonary vascular
resistance: 6.4 genao unit. AO (s/d) : 93/69
LVEDP : 22; No significant gradient across the aortic valve to suggest aortic stenosis. Invasive transaortic mean gradient of 2.55, aortic valve area of 2.63 cm� using cardiac output of 3.53 at heart rate of 127 bpm
Plan:
Presented with dyspnea on exertion, palpitations, A-fib with rapid ventricular response, acute heart failure secondary to severe symptomatic mitral regurgitation with P2/P3 severe prolapse and evidence of torn cord and mild coaptation of the mitral
leaflets on KACY 12/12/2024 with overall preserved LV systolic function estimated 60%, mild to moderate aortic stenosis with trace AI and mild to moderate tricuspid regurgitation
-Cardiac catheterization as part of preoperative assessment found to have right dominant system with no obstructive coronary artery disease. There was no significant gradient across the aortic valve to suggest significant aortic stenosis. LVEDP 22
-S/p mitral valve repair through traditional sternotomy, left atrial appendage exclusion 40 mm device and left atrial maze (combination of cryo and RF ablation) on 12/16/2024
-Postprocedure KACY EF 55% with trace MR and mean gradient 3 mmHg
-Patient seen and evaluated immediately postoperatively. Remains intubated and sedated. Plan for weaning of sedation with anticipated extubation later this evening
-Hemodynamically stable on dobutamine 5 mcg/kg/min, epinephrine drip at 2 mcg/kg/min and Levophed at 3 mcg/kg/min
-Postop EKG pending however upon review of telemetry patient is AV paced
-Postop chest x-ray pending
- Preop hemoglobin 12.5, postop hemoglobin 11.0
HPI 12/09/2024: Patient is a 74-year-old male with past medical history significant for asthma, GERD, chronic mild elevation of LFTs and mitral valve regurgitation RASCON associated with exertional dizziness and palpitations. Patient reports around
of 2023 started noticing functional decline and reduced exercise tolerance. He was found to have moderate mitral regurgitation on echo in April 2024. He underwent stress echo in September 2024 which demonstrated severe mitral
regurgitation with moderate tricuspid regurgitation and severe pulmonary hypertension with PAP of 75 mmHg. Stress test did not show any acute ischemia. He did CT surgery Dr. Jeff at [facility] regarding discussion of mitral valve
surgery. He reported he wanted to wait until the fall and has not had a catheterization. Patient reports 2 weeks ago he developed significant GI illness with nausea and vomiting. Since that time he is felt poorly with poor appetite, abdominal
bloating, progressively worsening shortness of breath, exertional dizziness list/lightheadedness and palpitations. He purchased a smart watch who told him he was in atrial fibrillation and PCP started Toprol 25 mg and Eliquis within the last week.
Patient's symptoms have progressed and he was told to come to emergency room for evaluation. Patient's initial ECG is Afib with RVR. Labs with several abnormalities of unknown chronicity including Cre of 1.7, potassium 5.6, sodium 128 and AST/ALT
172/245, all labs are being evaluated without previous for comparison. Initial Troponin was normal at 0.025 and pro-BNP 4880. CXR read as small B/L pleural effusions.
Progress Note - Family Readiness Support Assistant
Subjective
Date of Service: December 16, 2024
Patient seen and evaluated immediately postoperatively. Remains intubated and sedated
Objective
Labs:
Labs
Hgb 12.5 g/dL (13.0-18.0) L 12/16/24 05:06
Hct 36.2 % (39.0-52.0) L 12/16/24 05:06
Plt Count 171 10^3/uL (130-400) 12/16/24 05:06
PT 17.9 Sec (11.4-14.6) H 12/13/24 04:09
INR 1.45 12/13/24 04:09
APTT Cancelled 12/16/24 12:00
Sodium 135 mmol/L (135-145) 12/16/24 05:06
Potassium 3.7 mmol/L (3.5-5.1) 12/16/24 05:06
BUN 25 mg/dl (9-20) H 12/16/24 05:06
Creatinine 1.2 mg/dL (0.7-1.3) 12/16/24 05:06
Glucose 96 mg/dl (70-99) 12/16/24 05:06
Vital Signs and I&O:
Vital Signs
Temp Pulse Resp BP Pulse Ox
97.8 F 84 20 100/76 98
12/16/24 07:21 12/16/24 10:00 12/16/24 08:35 12/16/24 09:56 12/16/24 08:35
Vital Signs
Temp Pulse Resp BP Pulse Ox
97.8 F 84 20 100/76 98
12/16/24 07:21 12/16/24 10:00 12/16/24 08:35 12/16/24 09:56 12/16/24 08:35
Intake & Output
12/14/24 12/15/24 12/16/24 12/17/24
06:59 06:59 06:59 06:59
Intake Total 399.9 / 399.9 1120 / 1120
Output Total 650 / 650 250 / 250 1974
Balance -250.1 / -250.1 870 / 870 -1974
Physical Exam
Physical Exam
GEN: Intubated and sedated
HEENT: supple, anicteric, mmm
LUNGS: CTA CTA anteriorly currently on ventilator
CV: Reg, S1/S2, no murmur, rub or gallop
ABD: soft, BS+, NT/ND
EXT: No edema, clubbing or cyanosis
NEURO: Unable to assess as patient intubated and sedated
SKIN: No rash, warm, dry, pink
--- NOTE | 2024-12-16 15:20 | W.PN.CT.SURG ---
CT Surgery Operative Note
-
CARDIAC SURGERY OPERATIVE REPORT
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
Postoperative Diagnosis: Same, Acute on chronic congestive heart failure with severe pulmonary hypertension
Procedure(s) Performed:
1. Same sternotomy with aortic and bicaval cannulation
2. Surgical, open, left atrial maze [combination of cryo and RF ablation]
3. Left atrial appendage exclusion [40 mm device]
4. Complex mitral valve reconstruction [triangular resection of P2 P3 with primary reapproximation, cleft closure between P1 and P2, 6 sets of P[place]-Dominic cords with 3 placed to the anterior leaflet and 3 placed to the posterior leaflet, 36 mm band
annuloplasty, Free margin remodelling at AL commissure]
5. Placement of temporary atrial and ventricular pacing wires
6. Transesophageal echocardiography
Date of Surgery: 12/16/24
Comorbidities:
1. 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
2. Severe pulmonary hypertension
3. Myxomatous mitral valve disease, type 2 pathology with bileaflet prolapse
4. Severe mitral valve insufficiency
5. Mild aortic valve stenosis
6. Mild RV dysfunction
7. New onset atrial fibrillation
Attending Surgeon: Delano Orozco MD, MS
Assistants: Delano Gould PA-C (present and necessary to assistant clinical director, retraction, suction, exposure, suture management, and wound closure under my direction)
Anesthesiology: Darvin Marquez MD and Kati Mckeon CRNA
Scrub and Circulating RNs: Lucille Guerrero, RN, Katy Kern RN
Electron Beam Operator: Nay Rasheed CCP
Anesthesia: GETA
EBL: per perfusion records
Products: None
CPB Time: 123 minutes
Aortic Cross Clamp Time: 99 minutes
Indication(s) for Procedures: This is a 74-year-old male with known mitral valve insufficiency who developed worsening symptoms. He also developed new onset atrial fibrillation and so was admitted to the hospital and acute on chronic systolic and
diastolic heart failure. On review of in the form of repair. He had what initially appeared to be just the P2 P3 prolapse and flail. He also had A-fib. His mild aortic valve stenosis was verified invasively to have a low mean gradient. Plan was
to address his A-fib with a maze and ARABELLA Clip. Given that he was symptomatic he met class I indication..
Mitral Valve Description: Very abnormal appearing mitral valve with thickening of both the anterior and posterior leaflets. He had billowing of the anterior lateral commissure up towards A1 and A2. He also had a corresponding prolapse of P2 into
P3 involving the commissure and a flail segment of P2 of P3. His annulus was severely dilated. There was a large cleft between P1 and P2.
Findings: Following induction with anesthesia, he became hemodynamically unstable. He had PA pressures that it climbed up to the level of 80 mmHg which was almost systemic for him. His blood pressure systolics were in the low 80s requiring
increasing vasoactive inotropic support. I was contacted by anesthesia at that time, he was on epinephrine and dobutamine and Levophed for hemodynamic support. The ultimate decision was to pursue his surgery through a sternotomy to allow for
control. His left ventricular ejection fraction was approximately 50 to 55% with no significant regional wall motion abnormalities. He did have mild RV dysfunction with severe pressurization of the right atrium as well as pulmonary artery
intraoperatively. Following surgery his EF remained the same at 55% with no new regional wall motion abnormalities. His RV appeared to be much more snappy with its contractions. A full maze was performed, please see the ablation lines listed
below. His left atrium was severely dilated. His left atrial appendage was clipped with a 40 mm device flush to the base. His mitral valve was repaired, I initially performed a triangular resection at P2 and P3 with primary reapproximation with
multiple 5-0 Prolene's. I then reapproximated cleft between P1 and P2 using 5-0 Prolene in a [id number]-[id number]-akvci fashion. 2 sets of athe Chord-X system was used giving a total of 6 pairs of Paskenta-Dominic cords. These were each anchored to the anterior
lateral and posterior medial papillary muscle heads. I then placed 3 of the cords to the anterior leaflet and 3 to the posterior leaflet. Given that there was some commissure prolapsing at the anterolateral commissure, the free margin of this was
remodeled and tacked down towards the P1 leaflet free margin. Dynamic inflation of the ventricle pressurization with saline demonstrated adequate coaptation and good pressurization. After coming off cardiopulmonary bypass, there was none to trace
residual mitral valve insufficiency, there is no systolic anterior motion the leaflets, and the mean gradient of 3 was across the valve. His cardiac index after repair on 2 inotropes was 2.6. His tricuspid valve had a mild to moderate degree of
insufficiency with a slightly dilated annulus at beginning the case. After repairing his mitral valve, there was essentially no tricuspid valve deficiency and so this valve was left alone. He was in AV desynchronous rhythm and so he was being AV
paced after the surgery.
Ablation Lines:
1. Box lesion to posterior LA wall
2. ARABELLA lesion + ARABELLA Exclusion + Division of Ligament of Newton
3. Coronary sinus lesion
4. Posterior mitral annular line toward P2/P3
Specimen(s): P2/3 flail.
Prosthesis:
1. 36mm band annuloplasty, Lopez PhysioFlex, SN [id number]
2. 2 sets of CV4 ChordX (6 pairs of neochords)
3. Multiple 5-0 prolenes
4. 40mm ARABELLA Clip, SN [id number]
Description of Procedure: The patient was taken to the operating room. Their identity and procedure to be performed were verified and they were positioned supine on the operating table. Induction via general anesthesia with endotracheal intubation
was performed and central venous access and arterial monitoring were inserted. A preoperative transesophageal echocardiogram was performed to assess cardiac function and valvular function. The patient was then prepped and draped from chin to feet in
a sterile fashion. A preoperative time-out was performed with all members of the team present. A midline chest incision was performed along with median sternotomy. The innominate vein was isolated. Full heparinization was given (a total of 50,000
units). We created a pericardial well. The aortic cannulation site was chosen where it was soft, pliable, and free of calcium. Cannulation was performed with an arterial cannula in the ascending aorta, angled metal tip cannular in the superior vena
cava and straight bendable cannula in the inferior vena cava. The arterial cannula line had an appropriate bounce and correlating pressures. Next, a root vent/antegrade cannula was inserted into the ascending aorta. The ACT was confirmed to be over
400 and retrograde autologous priming was performed before commencing cardiopulmonary bypass. After developing the oblique sinus, the SVC was freed off of the right pulmonary artery and the encompass clamp was passed underneath the SVC and IVC
across the transverse and oblique sinuses respectively. 3 successful pairs of ablation were performed with the RF clamp. The pulmonary artery was away from the aorta to facilitate a clamp site. Sondergaard�s groove was developed heading
toward the oblique sinus. The aortic cross-clamp was placed after decreasing the flow on the bypass and mean arterial pressure. A total of 1.2L initial dose of antegrade Del-Nido cardioplegia solution was given and planned for re-dosing every 75
minutes as necessary. There was rapid electro-mechanical arrest of the heart at 250 cc of cardioplegia. The left ventricle was observed for distention on echocardiogram and manual palpation. Cold slush was placed into a lap on the RV and we
systemically cooled to 34 degrees centigrade. Once the heart was fully arrested was rotated medially and the left atrial appendage was clipped flush to the base with a 40 mm device. This was after division of the ligament of Newton.
Carbon dioxide was used to flood the field. The mitral valve was access via the left atrium followed by valve analysis. Additional cryo lines were performed here. The mitral valve was repaired as described above. The left ventricular vent was
repositioned across the mitral valve into the left ventricular and the left atrium was closed with a 3-0 prolene. The heart was filled to deair and the suture was tied.
De-airing maneuvers were performed and temporary bipolar ventricular pacing wires were placed on the base of the right ventricle along with atrial pacing wires at the SVC right atrial junction. The patient was placed in a Trendelenburg position and
flows on bypass were lowered. The aortic cross clamp was removed and flows were slowly brought back up. The left atrial suture line was hemostatic. Transesophageal echocardiography revealed no evidence of systolic anterior motion and ventricular
function was normal. Once de-airing was satisfactory the left ventricular and root vents were removed. After verifying acceptable parameters, we initiated weaning from cardiopulmonary bypass. Once we were off cardiopulmonary bypass, the venous
cannulas was clamped and removed sequentially. A test dose of protamine was administered and the patient was monitored for any adverse reaction before resuming protamine. Once half of the protamine dose was delivered, pump suckers were turned off
and the systolic blood pressure was lowered for aortic decannulation. The aortic cannula was removed and purse strings were tied down. All cannulation sites were oversewn with a 4-0 prolene. The left atrial suture line was inspected and hemostasis
was confirmed. Mediastinal hemostasis was obtained. Two #24 Evan drains were placed within the pericardium. The sternum was approximated with 4 #7 single and 3 #8 double stainless steel wires. Fascia was approximated with #1 vicryl suture. The
subcutaneous, dermis and epidermis were closed in layers in a running fashion. The skin wound was cleansed and dressed.
All instrument, sponge, and needle counts were confirmed to be correct x 2 at the end of the operation. The patient was transferred to the cardiac intensive care unit in critical but stable condition.
I, Dr. Delano Orozco, was present, scrubbed for, and performed all critical elements of this procedure.
Delano Orozco MD, MS
Cardiothoracic Surgeon
[facility]
This dictation was created using the [employer] dictation system. Please excuse any grammatical, typographical, or 'sound alike' errors
[2024-12-16 15:28] LABS: Glucose - Point of Care 132 mg/dl (70-99)
[2024-12-16 15:38] LABS: B.E. -5.8 mmol/L; HCO3 20.1 mmol/L (21-28); O2 Saturation % 94.6 % (94-98); PCO2 40 mmHg (35-48); PO2 79 mmHg (83-108); Potassium 3.5 mMOL/L (3.5-5.1); Sodium 134 mMOL/L (136-145); pH 7.31 (7.35-7.45)
[2024-12-16 15:41] LABS: Mixed Venous O2 Saturation 65.7 %
[2024-12-16 15:46] LABS: INR 1.86; PT 21.6 Sec (11.4-14.6)
[2024-12-16 15:50] LABS: Blood Urea Nitrogen 24 mg/dl (9-20); Estimated Creatinine Clearance 62 ml/min; Glucose 127 mg/dl (70-99); Hematocrit 32.3 % (39.0-52.0); Platelet Count 108 10^3/uL (130-400)
[2024-12-16] MEDS: NSS 500 IV (15:56)
--- NOTE | 2024-12-16 16:00 | PTCARENOTE ---
received patient from [facility]. sedated and placed on vent by MANAGER NURSING. usual lines, CTx2. no air leaks/crepitus. Out with precedex, insulin dobut and epi. CI 1.8 on arrival. Pulses by doppler. hypoactive bowel sounds. Sat 92% on 60% FIO2. labs drawn dna
sent. ekg and CXR done. updated family at bedside. will continue to monitor.
[2024-12-16] MEDS: KCL 50 IV ×2 (16:01→17:06)
[2024-12-16] MEDS: TYLENOL PO ×2 (16:01→22:08)
[2024-12-16] MEDS: NEURONTIN PO ×2 (16:07→22:08)
--- NOTE | 2024-12-16 16:12 | W.PN.UPDATE ---
Update Note
Progress Note Update
Tried seeing patient this morning. Went to the OR. Discussed with CT surgery PA, patient will be under CT surgery service postop. Medicine will sign off. Please call us if any questions.
[2024-12-16 16:32] LABS: Glucose - Point of Care 123 mg/dl (70-99)
[2024-12-16 17:36] LABS: Glucose - Point of Care 131 mg/dl (70-99)
[2024-12-16 18:38] LABS: Glucose - Point of Care 120 mg/dl (70-99)
--- NOTE | 2024-12-16 19:12 | CON.INTV ---
Consultation
Consultation Request
Date/Time Consultation Requested: 12/16/2024
Date/Time Consultation Performed: 12/16/2024
Requesting Provider: Delano Orozco
Performing Provider: Maranda Mcghee
Reason for Consultation: s/p MV repair
Medical History
-
Chief Complaint: Shortness of breath
History of Present Illness:
Patient is a 74-year-old gentleman with history of asthma and severe mitral valve regurgitation who follows with [place] [facility] service. Patient has been having worsening exercise intolerance shortness of breath over the last few
months. He presented to ED for further evaluation. Patient also was recently diagnosed with atrial fibrillation and had been on metoprolol and Eliquis. In the ED he was noted to have A-fib with rapid ventricular rate, hyponatremia, hyperkalemia,
acute renal failure as well as mild transaminitis. He was admitted to the hospital for further workup. Workup included echocardiogram followed by right and left heart catheterization which was suggestive of severe mitral valve regurgitation with
pulmonary hypertension. CT surgery service was consulted and patient was taken to the OR today for complex mitral valve repair. In addition patient had maze procedure performed as well. Postsurgery, he was admitted to cardiovascular ICU and
senior underwriter service was consulted for further input.
Medical History
Past Medical History
Past Medical History: Reports Other (as above)
Past Surgical History: Reports Other (as above)
Social History
Tobacco: Non-smoker
Alcohol: Occasional
Drug: None
Personal:
Living: With Family
Family History
Family History: Not pertinent (reviewed)
Allergies / Home Medications
Allergies / Home Medications
Allergies
Allergy/AdvReac Type Severity Reaction Status Date / Time
No Known Allergies Allergy Unverified 12/09/24 14:10
Home Medications
�Medication �Instructions �Recorded �Confirmed �Last Taken �Type
apixaban 5 mg tablet (Eliquis) 5 mg PO BID Blood Clot 12/09/24 12/09/24 12/09/24 History
Prevention/Tx
cholecalciferol (vitamin D3) 25 25 mcg PO DAILY Supplement 12/09/24 12/09/24 Unknown History
mcg (1,000 unit) tablet (Vitamin
D3)
diphenhydramine 25 1 tab PO HSPRN PRN sleep 12/09/24 12/09/24 Unknown History
mg-acetaminophen 500 mg tablet
(Acetaminophen PM)
fluticasone furoate 100 1 inh inhalation R DAILY 12/09/24 12/09/24 12/09/24 History
mcg-vilanterol 25 mcg/dose Lung/Breathing Issues
inhalation powder (Breo Ellipta)
lansoprazole 15 mg capsule,delayed 15 mg PO DAILY Gastrointestinal 12/09/24 12/09/24 12/08/24 History
release Issue
metoprolol succinate 25 mg 25 mg PO DAILY Blood Pressure 12/09/24 12/09/24 12/09/24 History
tablet,extended release 24 hr
(Toprol XL)
therapeutic multivitamin 1 tab PO DAILY Supplement 12/09/24 12/09/24 Unknown History
zoledronic acid 5 mg/100 mL in 5 mg IV Q365D Bone 12/09/24 12/09/24 Unknown History
mannitol 5 %-water intravenous
piggybck (Reclast)
Review of Systems
-
Unable to Obtain full review of systems at this time due to: Patient Intubation
Vitals / Labs / Diagnostic Testing
Vital Signs
Temp Pulse Resp BP Pulse Ox
98.5 F 70 14 100/76 98
12/16/24 18:00 12/16/24 18:00 12/16/24 18:00 12/16/24 09:56 12/16/24 18:00
Lab Data
12/16/24 15:28
Laboratory Results
12/16/24 12/16/24 12/16/24
05:06 12:00 15:28
PT 21.6 H
INR 1.86
APTT 114.9 H Cancelled 30.0
pH 7.31 L
pCO2 40
pO2 79 L
HCO3 20.1 L
O2 Delivery Level
Diagnostic Testing:
Physical Exam
-
HEENT: Normocephalic
Cardiovascular: S1/S2
Respiratory: Clear and Non-Labored Respirations
GI: Non Distended
Neurology: Other (Sedated)
Skin: Warm
General: Comfortable
Assessment
-
S/p complex mitral valve repair POD #0
Titrate off pressors per protocol, currently on Levophed at 2, epinephrine at 2 as well as dobutamine at 5. MAP is 71
ECHO reviewed
PA catheter readings reviewed
Management of chest tubes per primary service
Intubated/off Precedex, initiate SAT when able
Pain control
RASS goal of 0 to -1
Intubated for procedure, SBT trial when patient able to spontaneously breath
Current vent settings: SIMV, 500/14/40%/5, breathing at 14/min
ABG(s) reviewed 7.3, 40, 79
CXR reviewed, left more than right atelectasis.
Extubate per protocol
Maintain supplement oxygen as needed
Spirometry, 12/12/2024, FEV1 55% of predicted, FVC 64% of predicted. FEV1/FVC ratio decreased. Moderate obstructive disease. With decreased FVC, suspect there might be restriction also, recommend lung volumes and DLCO assessment with full
pulmonary function testing as outpatient.
Can add nebulizers if needed
Aspiration precautions
Encouraged incentive spirometry, OOB/ambulation/early mobility
Advance diet as tolerated following extubation
GI prophylaxis: Protonix
Monitor critical I/O's
[place]/chest tube output
Hb/platelets postoperatively reviewed, mild drift noted
Trend CBC for now
Can transfuse if indicated for Hb <7, plt <50 in surgical patients
DVT prophylaxis including SCDs
Insulin protocol initiated and ongoing
Transition to SQ/off as indicated per team
Other medical diagnoses:
- Severe Pulmonary HTN. PA 78/43, mPA 57. PCWP 38, PVR 6.4 genao, CO 3.54 and CI 1.88. Group II with severe MR and elevated PCWP
- Acute on suspected chronic heart failure with preserved ejection fraction, related to severe MR
- Severe mitral regurgitation, s/p mitral valve repair 12/16/2024
- Atrial fibrillation with rapid ventricular response, on metoprolol and amiodarone
- Acute kidney injury with cardiorenal syndrome, improving. Creatinine 1.1 now
- Hyponatremia, likely related to volume overload
- History of asthma. Takes Breo at home. While intubated, start budesonide nebulized twice a day and as needed DuoNeb. Once extubated, will resume Breo.
- Gastroesophageal reflux disease
- Pulmonary nodule. 2 mm. Out patient follow up with Pulmonary clinic, information added to discharge section.
Critical Care time 65 mins -- The patient is admitted for acute critical illness for the treatment of vital organ failure and/or prevention of further life-threatening conditions. Total care includes time spent in review of history, physical exam,
medications, hemodynamic/ventilator parameters, laboratory data, imaging and discussion with house staff, pharmacy, respiratory therapy, radio performer, and nursing.
Data:
Stress echo 10/04/2024: Baseline echo EF 60 to 65%. Moderately dilated LA, mild dilated RA. Severe mitral regurgitation with prolapse of posterior leaflet. Moderate tricuspid regurgitation with PAP of 75 mmHg. 9 minutes on Ren protocol achieving
92% predicted max heart rate. No wall motion abnormalities appeared at stress. Severe mitral regurgitation post exercise
Echo 05/22/2024: EF 60-65%. No regional LV wall motion abnormalities. LVH. Grade 2 diastolic dysfunction. Severe left atrial dilation with left atrium volume index severely increased. Normal RV size and function. Moderate mitral regurgitation
with posterior leaflet moderately prolapsed.
Echo 12/11/2024: nl LV size, EF 60-65%, nl wall motion, mild cLVH, mildly dilated RV, sev MR due to prolapse of post MV leaflet, mod (54/30mmHg, HOLDEN 1.1cm2), mild TR, PAP 55-60 mmHg
Cardiac catheterization 12/13/2024: LAD: Normal. LAD: Normal. Left circumflex: Normal. Ramus: Normal. RCA: Normal. No obstructive coronary artery disease. Significantly elevated right and left-sided filling pressures with reduced cardiac output
and mildly elevated systemic vascular resistance with severe pulmonary hypertension. Cardiac Output : 3.54 L/min by Maricruz calculation. Cardiac Index : 1.88 L/min/m-2 by Maricruz calculation. Systemic vascular resistance: 1309 dsc^(-5). Pulmonary vascular
resistance: 6.4 genao unit. AO (s/d) : 93/69
LVEDP : 22; No significant gradient across the aortic valve to suggest aortic stenosis. Invasive transaortic mean gradient of 2.55, aortic valve area of 2.63 cm� using cardiac output of 3.53 at heart rate of 127 bpm
[2024-12-16 19:14] LABS: B.E. -3.6 mmol/L; HCO3 20.3 mmol/L (21-28); Ionized Calcium 1.14 mMOL/L (1.15-1.33); O2 Saturation % 97.7 % (94-98); PCO2 32 mmHg (35-48); PO2 185 mmHg (83-108); Potassium 4.4 mMOL/L (3.5-5.1); Sodium 134 mMOL/L (136-145); pH 7.41 (7.35-7.45)
[2024-12-16] MEDS: OFIRMEV 100 IV (19:23)
[2024-12-16] MEDS: SENOKOT-S PO (19:24)
[2024-12-16] MEDS: CALCIUM GLUCONATE 100 IV (19:28)
[2024-12-16] MEDS: SODIUM BICARBONATE 50 MEQ IV (19:52)
[2024-12-16 20:17] LABS: Glucose - Point of Care 73 mg/dl (70-99)
--- NOTE | 2024-12-16 20:35 | PTCARENOTE ---
Report received from Katherine RN at bedside. Pt awake, restless, anxious. Nods yes to pain. Minnie Islas ACUTE CARE SURGEON at bedside. Precedex restarted at 0.1 mcg/kg/hr. Ofirmev 1 GM IV given per order. ABG redrawn. Ed, PA with results. Sodium Bicarb 50 meQ
given IV. Ca gluconate given. See MAR. Pt did focus briefly and follow commands x 4 equally. Pt AV paced at 70 bpm. Dobut at 5 mcg, Epi at 2 mcg, Levo at 2 mcg. Glycemic protocol utilized. + pericardial rub. For pulse and wound assessments, see
flowsheets. CI checked at 2029: 2.09. Reported to PA. Mediastinal CTs x 2 to -20 cm suction. Precedex gtt off at 2029 per Ed, PA. Pt on vent: 40% FiO2, SIMV, rate 14, Peep 5, PS 5. Little spontaneous breathing. Sats 100%. BBS present. Clear
anterior lobes. Decreased B bases. Belly soft, nontender. Hypoactive bs x 4. NPO while on vent. [place] with clear yellow urine. Q1 hr outputs documented. and son at bedside. Updated on pt status. Ongoing plan of care.
[2024-12-16 20:39] LABS: Hematocrit 31.5 % (39.0-52.0); Platelet Count 127 10^3/uL (130-400)
[2024-12-16 21:10] LABS: Glucose - Point of Care 79 mg/dl (70-99)
[2024-12-16] MEDS: SYMBICORT 80/4.5 MCG INHALER INH (21:10)
[2024-12-16 21:49] LABS: Glucose - Point of Care 92 mg/dl (70-99)
[2024-12-16 21:50] LABS: B.E. -1.1 mmol/L; HCO3 18.7 mmol/L (21-28); Ionized Calcium 1.21 mMOL/L (1.15-1.33); PCO2 19 mmHg (35-48); PO2 178 mmHg (83-108)
[2024-12-16] MEDS: DILAUDID 0.25 MG IV (22:03)
[2024-12-16] MEDS: ANCEF 5 IV (22:08)
[2024-12-16] MEDS: CALCIUM GLUCONATE 130 MG IV (22:36)
[2024-12-16 22:56] LABS: Glucose - Point of Care 112 mg/dl (70-99)
[2024-12-16 22:57] LABS: B.E. -2.9 mmol/L; HCO3 19.9 mmol/L (21-28); Ionized Calcium 1.26 mMOL/L (1.15-1.33); O2 Saturation % 97.8 % (94-98); PCO2 28 mmHg (35-48); PO2 154 mmHg (83-108); pH 7.46 (7.35-7.45)
[2024-12-16] MEDS: LOW STRENGTH ASPIRIN 81 MG PO (23:17)
--- NOTE | 2024-12-16 23:24 | RESPNOTE ---
pt extubated at 2310 to 6 LPM NC. Some oral secretions that were thick but manageable. - stridor and + vocalization
--- NOTE | 2024-12-16 23:30 | PTCARENOTE ---
Pt placed onto CPAP at 2106. ABG with respiratory alkalosis. Ed, PA aware. Pt c/o pain to sternum. Dilaudid 0.25 mg IV given. Repeat ABG at 2244 done. Results seen by PA. Order given to extubate pt. Pt extubated at 2310 to 6L/NC. Sats maintained at
98-100%. BBS present. No stridor, no hoarseness. Pt with thick, house oropharyngeal secretions.Repeat CI 2.58. Epi gtt remains at 2 mcg. Dobut at 5 mcg. Levo gtt off. Glycemic protocol ongoing.
[2024-12-16] MEDS: DILAUDID 0.5 MG IV (23:41)
[2024-12-17] VITALS (22 sets, daily range): BP systolic 98–143; BP diastolic 66–98; PULSE 66; O2SAT 98; BMI 22.8
[2024-12-17 00:39] LABS: Glucose - Point of Care 131 mg/dl (70-99)
--- NOTE | 2024-12-17 02:15 | PTCARENOTE ---
Pt with 14 beat run of SVT vs AF, rate 140's, then rhtyhm changed to AV pacing at 70 bpm. Pt awake. Normotensive. Ed, PA called and notified. Most recent CI 2.61. Dobut at 5 mcg, Epi at 2 mcg. Sats 97% on 6L/NC.
[2024-12-17 02:33] LABS: Glucose - Point of Care 126 mg/dl (70-99)
--- NOTE | 2024-12-17 03:56 | W.PN.CT ---
Today's Communication / Plan
-
Plan:
-No major issues overnight. Hemodynamically and neurologically intact
-Successfully extubated @ 2310 on 12/16/24
-Weaned off Levophed overnight. Epinephrine weaned from 2 to 1 this AM @ 0400, Dobutamine @ 5 mcg/kg/min, and insulin gtt per protocol
-Rhythm is now Junctional @ 68 bpm, was pacer dependent immediately postop A/V paced @ 70 bpm
-Last CI 2.7 (Epi @ 1, Dobutamine @ 5), MVO2 78.9%, u/o since OR 710 mL
-Monitor chest tube output: 2med 240/390. CXR this AM looks good without ptx on significant atelectasis/effusion on my review, f/u official report
-Placed Amiodarone and BB on hold given postop CHB on both Epinephrine and Dobutamine gtts
-Will eventually resume Eliquis for a-fib hx S/P MAZE
-Cont. current meds (ASA, Protonix, Pulmicort)
-Mg 2.4, placed mag oxide on hold
-Will d/c insulin gtt later today per protocol
-Keep swan and a-line while on Dobutamine and Epinephrine
-Will keep hidalgo another day for accurate I/O's
-Maintain temporary A/V wires
-Will wean inotropes as tolerated
-Encourage use of IS
-Wean off of O2 as tolerated
-OOB into chair/Ambulate
-Will repeat echo to re-assess MV repair before discharge
Assessment / Plan
-
Assessment:
-S/P Sternotomy/ Complex mitral valve reconstruction [triangular resection of P2 P3 with primary reapproximation, cleft closure between P1 and P2, 6 sets of [place]-Dominic cords with 3 placed to the anterior leaflet and 3 placed to the posterior leaflet,
36 mm band annuloplasty, Free margin remodelling at AL commissure]/Surgical, open, left atrial maze [combination of cryo and RF ablation]/ Left atrial appendage exclusion [40 mm device], by Dr. Orozco, 12/16/24, pod#1
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
-Severe pulmonary hypertension
-Myxomatous mitral valve disease, type 2 pathology with bileaflet prolapse
-Severe mitral valve insufficiency
-Mild aortic valve stenosis
-Mild RV dysfunction
-New onset atrial fibrillation
-LVEF 50-55%
-RBBB
-GERD
-Asthma
-Former tobacco use (remote, college)
-Recent elevated LFTs
-Recent IVORY, resolved preop
-S/P inguinal hernia repair
-Acute postop blood loss/Anemia (stable, without blood transfusion)
-Acute postop thrombocytopenia (stable without active bleed)
-Acute postop atelectasis
-Acute postop hypovolemia with subsequent hypervolemia
-Acute postop CHB S/P A/V paced postop
-Acute postop junctional/accelerated junctional rhythm
Discussed patient care with: Cardiology, Nursing, Respiratory Therapy, Pharmacy and Care Team
Subjective
Procedure
S/P Sternotomy/ Complex mitral valve reconstruction [triangular resection of P2 P3 with primary reapproximation, cleft closure between P1 and P2, 6 sets of [place]-Dominic cords with 3 placed to the anterior leaflet and 3 placed to the posterior leaflet,
36 mm band annuloplasty, Free margin remodelling at AL commissure]/Surgical, open, left atrial maze [combination of cryo and RF ablation]/ Left atrial appendage exclusion [40 mm device], by Dr. Orozco, 12/16/24
-
Date of Service: December 17, 2024
Pt c/o incisional pain, otherwise feels well
Objective Data
-
PT 21.6 Sec (11.4-14.6) H 12/16/24 15:28
INR 1.86 12/16/24 15:28
APTT 30.0 Sec (23.4-35.0) 12/16/24 15:28
Vital Signs
Vital Signs
Temp Pulse Resp BP Pulse Ox
98.1 F 70 12 124/70 98
12/17/24 03:00 12/17/24 03:00 12/17/24 03:00 12/17/24 03:00 12/17/24 03:00
CT Intake/Output/Weight
12/16/24 12/16/24 12/17/24
06:59 18:59 06:59
Intake Total 348.3 / 1148.5 800.2 / 1148.5
Output Total 1974 360 / 825 465 / 825
Balance -400 / -1974 -11.7 / 323.5 335.2 / 323.5
SaO2: 95 (2L)
Physical Exam
-
General: Awake, Oriented and AOx3
Cardiovascular: Regular rate & rhythm, No Murmurs, No Rub and No Gallop
Respiratory: Decreased Breath Sounds (at bases, otherwise clear)
Sternum: Stable
Incision: Clean, Dry, Intact and Dressing Intact
Extremities: Other (+trace edema)
Data Reviewed
-
Lab Results: Results Reviewed
Medications: Active Meds Reviewed
Chest X-Ray: Report Reviewed and Image Reviewed
ECG: Report Reviewed and Image Reviewed
[2024-12-17 04:11] LABS: Mixed Venous O2 Saturation 78.9 %
[2024-12-17 04:28] LABS: Hematocrit 32.9 % (39.0-52.0); Hemoglobin 11.2 g/dL (13.0-18.0); INR 1.44; Mean Corpuscular Volume 91.1 fL (80.0-94.0); Mean Platelet Volume 11.4 fL (7.4-10.4); Platelet Count 130 10^3/uL (130-400); Red Blood Cell Count 3.61 10^6/uL (4.70-6.10); Red Cell Dist. Width 15.6 % (11.5-14.5); White Blood Cell Count 10.9 10^3/uL (4.8-10.8)
[2024-12-17 04:36] LABS: ALT (SGPT) 118 U/L (0-50); AST (SGOT) 112 U/L (17-59); Albumin 3.2 g/dl (3.5-5.0); Alkaline Phosphatase 90 U/L (38-126); Blood Urea Nitrogen 28 mg/dl (9-20); Calcium 9.6 mg/dl (8.4-10.2); Carbon Dioxide 21 mmol/L (22-30); Chloride 111 mmol/L (98-107); Direct Bilirubin 0.5 mg/dl (0.0-0.4); Estimated Creatinine Clearance 52 ml/min; Glucose 140 mg/dl (70-99); Magnesium 2.4 mg/dl (1.6-2.3); Potassium 4.5 mmol/L (3.5-5.1); Sodium 139 mmol/L (135-145); Total Bilirubin 2.3 mg/dl (0.2-1.3); Total Protein 5.2 g/dl (6.3-8.2); eGFR 58.37
--- NOTE | 2024-12-17 04:45 | PTCARENOTE ---
Labs drawn and sent. Ed, PA at bedside to assess EKG rhtyhm. Intrinsic rhythm is accelerated junctional rhythm, rate 70's. CI 2.61 with this rhythm. BP 128-141/60's. MAPs 80's. Epi gtt down to 1 mcg/min per order of PA. Ordered to follow Cuff BP.
Pacer with mAs off due to inappropriate pacing spikes. Pacing box also changed. Inappropriate spikes continue occasionally yet less.
[2024-12-17 05:08] LABS: Glucose - Point of Care 139 mg/dl (70-99)
[2024-12-17] MEDS: ANCEF 5 IV ×2 (05:50→14:37)
[2024-12-17] MEDS: TYLENOL 1000 MG PO ×3 (05:51→21:15)
[2024-12-17] MEDS: DILAUDID 0.25 MG IV (05:52)
[2024-12-17 06:36] LABS: Glucose - Point of Care 118 mg/dl (70-99)
--- NOTE | 2024-12-17 06:38 | PTCARENOTE ---
Follow up CI at 0530 is 2.70. Bed weight obtained. CXR done this am. Dilaudid 0.25 mg IV for 4/10 sternal pain. See SEP.
--- NOTE | 2024-12-17 07:52 | W.PN.INTV ---
Today's Communication / Plan
Recommendations
- Monitor renal function closely
- Incentive spirometry, increase activity as tolerated
- Outpatient follow-up with pulmonary clinic
Assessment
-
S/p complex mitral valve repair POD #1
Titrate off pressors per protocol, currently on dobutamine @ 5.
ECHO reviewed
Management of chest tubes per primary service
Patient extubated 12/16, currently saturating well on nasal cannula
Chest x-ray unremarkable except for left basilar subsegmental atelectasis
Spirometry, 12/12/2024, FEV1 55% of predicted, FVC 64% of predicted. FEV1/FVC ratio decreased. Moderate obstructive disease. With decreased FVC, suspect there might be restriction also, recommend lung volumes and DLCO assessment with full
pulmonary function testing as outpatient.
Continue Symbicort, as needed DuoNeb
Aspiration precautions
Encouraged incentive spirometry, OOB/ambulation/early mobility
Advance diet as tolerated following extubation
GI prophylaxis: Protonix
Monitor critical I/O's
Creatinine slightly up at 1.3, continue to monitor t
Hb/platelets postoperatively reviewed, mild drift noted
Trend CBC for now
Can transfuse if indicated for Hb <7, plt <50 in surgical patients
DVT prophylaxis including SCDs
Insulin protocol initiated and ongoing
Transition to SQ/off as indicated per team
Other medical diagnoses:
- Severe Pulmonary HTN. PA 78/43, mPA 57. PCWP 38, PVR 6.4 genao, CO 3.54 and CI 1.88. Group II with severe MR and elevated PCWP
- Acute on suspected chronic heart failure with preserved ejection fraction, related to severe MR
- Severe mitral regurgitation, s/p mitral valve repair 12/16/2024
- Atrial fibrillation with rapid ventricular response, on metoprolol (currently on hold) and amiodarone
- Acute kidney injury with cardiorenal syndrome, improving. Creatinine 1.3 today
- Hyponatremia, likely related to volume overload. 139 this AM
- History of asthma. Takes Breo at home. Currently on Symbicort twice a day and as needed DuoNeb. No wheezing on exam.
- Gastroesophageal reflux disease. On pantoprazole
- Pulmonary nodule. 2 mm. Out patient follow up with Pulmonary clinic, information added to discharge section.
Critical Care time 45 mins -- The patient is admitted for acute critical illness for the treatment of vital organ failure and/or prevention of further life-threatening conditions. Total care includes time spent in review of history, physical exam,
medications, hemodynamic/ventilator parameters, laboratory data, imaging and discussion with house staff, pharmacy, respiratory therapy, probation officer, and nursing.
Data:
Stress echo 10/04/2024: Baseline echo EF 60 to 65%. Moderately dilated LA, mild dilated RA. Severe mitral regurgitation with prolapse of posterior leaflet. Moderate tricuspid regurgitation with PAP of 75 mmHg. 9 minutes on Ren protocol achieving
92% predicted max heart rate. No wall motion abnormalities appeared at stress. Severe mitral regurgitation post exercise
Echo 05/22/2024: EF 60-65%. No regional LV wall motion abnormalities. LVH. Grade 2 diastolic dysfunction. Severe left atrial dilation with left atrium volume index severely increased. Normal RV size and function. Moderate mitral regurgitation
with posterior leaflet moderately prolapsed.
Echo 12/11/2024: nl LV size, EF 60-65%, nl wall motion, mild cLVH, mildly dilated RV, sev MR due to prolapse of post MV leaflet, mod (54/30mmHg, HOLDEN 1.1cm2), mild TR, PAP 55-60 mmHg
Cardiac catheterization 12/13/2024: LAD: Normal. LAD: Normal. Left circumflex: Normal. Ramus: Normal. RCA: Normal. No obstructive coronary artery disease. Significantly elevated right and left-sided filling pressures with reduced cardiac output
and mildly elevated systemic vascular resistance with severe pulmonary hypertension. Cardiac Output : 3.54 L/min by Maricruz calculation. Cardiac Index : 1.88 L/min/m-2 by Maricruz calculation. Systemic vascular resistance: 1309 dsc^(-5). Pulmonary vascular
resistance: 6.4 genao unit. AO (s/d) : 93/69
LVEDP : 22; No significant gradient across the aortic valve to suggest aortic stenosis. Invasive transaortic mean gradient of 2.55, aortic valve area of 2.63 cm� using cardiac output of 3.53 at heart rate of 127 bpm
Subjective Dataa
Subjective Data
Date of Service:
Date of Service: December 17, 2024
Subjective:
Patient comfortably lying in bed, in no acute distress.
Review of Systems
Genitourinary: Other (All 14 systems reviewed and negative except as stated above in the history of present illness.)
Objective Data
Data Reviewed
Vital Signs / I&O / Oxygen:
Vital Signs
Temp Pulse Resp BP Pulse Ox
98.3 F 67 15 136/79 99
12/17/24 06:00 12/17/24 06:30 12/17/24 06:30 12/17/24 06:00 12/17/24 06:30
Intake and Output
12/16/24 12/17/24 12/18/24
06:59 06:59 06:59
Intake Total 1458.0 / 1458.0
Output Total 1974 1130 / 1130
Balance -1974 328.0 / 328.0
SaO2 [SIMV] 100
SaO2 [P-SIMV] 92
SaO2 99
Nasal Cannula flow liters per 4
minute
Physical Exam
General: Comfortable
HEENT: Normocephalic
Cardiovascular: S1-S2
Respiratory: Clear
GI: Non Distended
Neurology: Awake, Alert and Oriented
Skin: Warm
Labs/Micro/Reports
Lab Data
12/17/24 03:48
12/17/24 03:48
Laboratory Results
12/16/24 12/16/24 12/16/24
12:00 15:28 19:08
PT 21.6 H
INR 1.86
APTT Cancelled 30.0
pH 7.31 L 7.41
pCO2 40 32 L
pO2 79 L 185 H
HCO3 20.1 L 20.3 L
O2 Delivery Level
12/16/24 12/16/24 12/17/24
21:42 22:46 03:48
PT 18.0 H
INR 1.44
APTT
pH 7.60 H 7.46 H
pCO2 19 L 28 L
pO2 178 H 154 H
HCO3 18.7 L 19.9 L
O2 Delivery Level
[2024-12-17 08:23] LABS: Glucose - Point of Care 110 mg/dl (70-99)
[2024-12-17] MEDS: SYMBICORT 80/4.5 MCG INHALER 2 PUFF INH ×2 (08:32→19:20)
[2024-12-17] MEDS: BACTROBAN 2% OINTMENT 1 APPLIC NASAL ×2 (08:42→19:57)
[2024-12-17] MEDS: LIDOCAINE 4% PATCH 1 PATCH TOPICAL (08:43)
[2024-12-17] MEDS: PROTONIX 40 MG PO (08:43)
[2024-12-17] MEDS: NEURONTIN 100 MG PO ×3 (08:43→21:15)
[2024-12-17] MEDS: VITAMIN D3 (cholecalciferol) 25 MCG PO (08:43)
[2024-12-17] MEDS: SENOKOT-S 1 TABLET PO ×2 (08:43→19:57)
[2024-12-17] MEDS: THERAGRAN 1 TABLET PO (08:43)
[2024-12-17] MEDS: LOW STRENGTH ASPIRIN 81 MG PO (08:43)
[2024-12-17] MEDS: DOBUTREX 500 MG 250 IV (08:49)
--- NOTE | 2024-12-17 09:00 | PTCARENOTE ---
Received pt from shift lab technician RN @ 0700; pt AAOx3 and resting comfortably in bed; Junctional on monitor and VSS; Epicardial A/V wires set to back up 35/10/10 inappropartley pacing noted, Thresholds tested and V wire not capturing updated CT MANAGER BANQUET V
wires disconnected from pacing box; new settings AAI 35/12/0.4 and no pacing noted; RIJ Cordis, [place] floated to 47, Left A-line and PIV x1, all lines leveled and zeroed; Dobutamine and Insulin infusing see flow sheet for details; Lungs diminished;
IS to 1000; CT x2 to -20 wall suction no air leak and no crepitus noted; positive bowel sounds; [place] catheter draining yellow urine; palpable radial pulses and Bilateral Doppler pedal pulses present; no edema noted; all surgical sites C/D/I; see
nursing documentation for further details.
CI 2.10
CO 3.97
SVR 1571
[2024-12-17] MEDS: LASIX 20 MG IV (09:06)
[2024-12-17] MEDS: ROXICODONE 5 MG PO ×2 (09:07→16:17)
[2024-12-17 09:34] LABS: Glucose - Point of Care 110 mg/dl (70-99)
--- NOTE | 2024-12-17 11:15 | PTCARENOTE ---
Pt OOB with RN and cardiac rehab; Junctional on monitor and VSS; family at bedside and assessment unchanged.
--- NOTE | 2024-12-17 11:15 | CM ---
Reviewed chart. Met with and Mrs. Hickey to review discharge plans. He states he is feeling well. He states prior to admission he resides with his spouse in a three story home with three steps to enter. He states his main bedroom and
bathroom are on the first floor. He states prior to admission he was independent with ambulation and adls. He states he does not have any DME in the home. He states he has a prescription plan. We reviewed a home visit by the Transitional Care
Nurse. He is agreeable to a home visit. Medical work-up in progress. The discharge plan is to return home with his spouse a home visit by the Transitional Care Nurse when medically stable.
--- NOTE | 2024-12-17 11:17 | PTOTSP ---
Patient is s/p MVR 12/16. Will require updated PT and OT orders to resume therapy when appropriate. Message sent to Shipping/Receiving Clerk.
[2024-12-17 12:23] LABS: Glucose - Point of Care 110 mg/dl (70-99)
[2024-12-17 12:23] LABS: Glucose - Point of Care 114 mg/dl (70-99)
--- NOTE | 2024-12-17 13:04 | W.PN.CARDCBS ---
Addendum entered and electronically signed by Robert Mckinley MD 12/17/24 13:41:
I saw and examined the patient.
The CHIEF LEARNING OFFICER or PA's note was reviewed and I agree with the note.
Comment: General: Well developed, well nourished in NAD.
Neck: Supple, no JVD, HJR, carotids +2 B/L, no bruits bilaterally.
Heart: Non displaced PMI, RRR, no murmurs, No S3, S4, no rubs.
Lungs: Scattered rhonchi
Sternal dressings noted
Extremities: No clubbing, cyanosis or edema bilaterally.
Neuro: Grossly nonfocal, awake, alert and oriented x3.
Remains in junctional rhythm at present. Amiodarone and metoprolol on hold. Remains on dobutamine. Discussed with CT and nursing. Discussed with family in room as well
Original Note:
Today's Communication / Plan
-
Wean oxygen as able
Amiodarone and metoprolol remain on hold
Pulmonary toilet/IS
Usual postop care
Impression / Plan
-
PCP: Brian James
Card: Dr. Rahman [facility]
Cardiothoracic surgeon Dr. Jeff at [place]
Impression:
Presented 12/09/2024 w/ RASCON, palpitation
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
s/p mitral valve repair through traditional sternotomy 12/16/2024, Dr. Orozco
Atrial fibrillation with RVR
s/p left atrial maze (combination of cryo and RF ablation) 12/16/2024, Dr. Orozco
Left atrial appendage clip 40 mm device 12/16/2024, Dr. Orozco
Acute HFpEF, proBNP 4880
Abnormal LFTs, Possible acute cholecystitis on Abd ultrasound, but HIDA 12/11/2024 without obstruction
IVORY
Hyperkalemia
Hyponatremia
Severe PHTN
RBBB of unknown chronicity
Asthma
GERD
Stress echo 10/04/2024: Baseline echo EF 60 to 65%. Moderately dilated LA, mild dilated RA. Severe mitral regurgitation with prolapse of posterior leaflet. Moderate tricuspid regurgitation with PAP of 75 mmHg. 9 minutes on Ren protocol achieving
92% predicted max heart rate. No wall motion abnormalities appeared at stress. Severe mitral regurgitation post exercise
Echo 05/22/2024: EF 60-65%. No regional LV wall motion abnormalities. LVH. Grade 2 diastolic dysfunction. Severe left atrial dilation with left atrium volume index severely increased. Normal RV size and function. Moderate mitral regurgitation
with posterior leaflet moderately prolapsed.
Echo 12/11/2024: nl LV size, EF 60-65%, nl wall motion, mild cLVH, mildly dilated RV, sev MR due to prolapse of post MV leaflet, mod (54/30mmHg, HOLDEN 1.1cm2), mild TR, PAP 55-60 mmHg
Cardiac catheterization 12/13/2024: LAD: Normal. LAD: Normal. Left circumflex: Normal. Ramus: Normal. RCA: Normal. No obstructive coronary artery disease. Significantly elevated right and left-sided filling pressures with reduced cardiac output
and mildly elevated systemic vascular resistance with severe pulmonary hypertension. Cardiac Output : 3.54 L/min by Maricruz calculation. Cardiac Index : 1.88 L/min/m-2 by Maricruz calculation. Systemic vascular resistance: 1309 dsc^(-5). Pulmonary vascular
resistance: 6.4 genao unit. AO (s/d) : 93/69
LVEDP : 22; No significant gradient across the aortic valve to suggest aortic stenosis. Invasive transaortic mean gradient of 2.55, aortic valve area of 2.63 cm� using cardiac output of 3.53 at heart rate of 127 bpm
Plan:
-S/p mitral valve repair through traditional sternotomy, left atrial appendage exclusion 40 mm device and left atrial maze (combination of cryo and RF ablation) on 12/16/2024
-Postprocedure KACY EF 55% with trace MR and mean gradient 3 mmHg
-Extubated evening of 12/16. Still on 3 lpm NC with good O2 sats. Wean as able
-Hemodynamically stable on dobutamine 5 mcg/kg/min. Off epinephrine and Levophed
-Initially AV paced now in Junctional rhythm. Amiodarone and Metoprolol on hold
-Chest tube drainage stable, still with [place]
-Preop hemoglobin 12.5, postop hemoglobin 11.2
-Continue ASA
-Will need eventual OAC/Eliquis for PAF prior to surgery when stable from CT standpoint
-Enc pulmonary toilet/incentive spirometry
Presented with dyspnea on exertion, palpitations, A-fib with rapid ventricular response, acute heart failure secondary to severe symptomatic mitral regurgitation with P2/P3 severe prolapse and evidence of torn cord and mild coaptation of the mitral
leaflets on KACY 12/12/2024 with overall preserved LV systolic function estimated 60%, mild to moderate aortic stenosis with trace AI and mild to moderate tricuspid regurgitation
-Cardiac catheterization as part of preoperative assessment found to have right dominant system with no obstructive coronary artery disease. There was no significant gradient across the aortic valve to suggest significant aortic stenosis. LVEDP 22
HPI 12/09/2024: Patient is a 74-year-old male with past medical history significant for asthma, GERD, chronic mild elevation of LFTs and mitral valve regurgitation RASCON associated with exertional dizziness and palpitations. Patient reports around
of 2023 started noticing functional decline and reduced exercise tolerance. He was found to have moderate mitral regurgitation on echo in April 2024. He underwent stress echo in September 2024 which demonstrated severe mitral
regurgitation with moderate tricuspid regurgitation and severe pulmonary hypertension with PAP of 75 mmHg. Stress test did not show any acute ischemia. He did CT surgery Dr. Jeff at [facility] regarding discussion of mitral valve
surgery. He reported he wanted to wait until the fall and has not had a catheterization. Patient reports 2 weeks ago he developed significant GI illness with nausea and vomiting. Since that time he is felt poorly with poor appetite, abdominal
bloating, progressively worsening shortness of breath, exertional dizziness list/lightheadedness and palpitations. He purchased a smart watch who told him he was in atrial fibrillation and PCP started Toprol 25 mg and Eliquis within the last week.
Patient's symptoms have progressed and he was told to come to emergency room for evaluation. Patient's initial ECG is Afib with RVR. Labs with several abnormalities of unknown chronicity including Cre of 1.7, potassium 5.6, sodium 128 and AST/ALT
172/245, all labs are being evaluated without previous for comparison. Initial Troponin was normal at 0.025 and pro-BNP 4880. CXR read as small B/L pleural effusions.
Progress Note - Dental Laboratory Technician
Subjective
Date of Service: December 17, 2024
Patient seen and examined. Patient sitting up in chair notes some mild sternotomy pain. Still on oxygen.
Objective
Labs:
12/17/24 03:48
12/17/24 03:48
Labs
Hgb 11.2 g/dL (13.0-18.0) L 12/17/24 03:48
Hct 32.9 % (39.0-52.0) L 12/17/24 03:48
Plt Count 130 10^3/uL (130-400) 12/17/24 03:48
PT 18.0 Sec (11.4-14.6) H 12/17/24 03:48
INR 1.44 12/17/24 03:48
APTT 30.0 Sec (23.4-35.0) 12/16/24 15:28
Sodium 139 mmol/L (135-145) 12/17/24 03:48
Potassium 4.5 mmol/L (3.5-5.1) 12/17/24 03:48
BUN 28 mg/dl (9-20) H 12/17/24 03:48
Creatinine 1.3 mg/dL (0.7-1.3) 12/17/24 03:48
Glucose 140 mg/dl (70-99) H 12/17/24 03:48
Vital Signs and I&O:
Vital Signs
Temp Pulse Resp BP Pulse Ox
98.0 F 65 19 140/79 96
12/17/24 08:00 12/17/24 11:04 12/17/24 11:00 12/17/24 10:00 12/17/24 10:42
Vital Signs
Temp Pulse Resp BP Pulse Ox
98.0 F 65 19 140/79 96
12/17/24 08:00 12/17/24 11:04 12/17/24 11:00 12/17/24 10:00 12/17/24 10:42
Intake & Output
12/15/24 12/16/24 12/17/24 12/18/24
06:59 06:59 06:59 06:59
Intake Total 1120 / 1120 1458.0 / 1520.0 249.6 / 249.6
Output Total 250 / 250 1974 1130 / 1185 345 / 345
Balance 870 / 870 -1974 328.0 / 335.0 -95.4 / -95.4
Physical Exam
Physical Exam
GEN: No distress, awake, Ox3, sitting in chair
HEENT: supple, anicteric, mmm
LUNGS: Mildly decreased at bases CTA, no wheezes/rales; currently on 3 L via nasal cannula
CV: Reg, S1/S2, no murmur, rub or gallop
ABD: soft, BS+, NT/ND
EXT: No edema, clubbing or cyanosis
NEURO: Gross non-focal
SKIN: No rash warm, dry, pink
--- NOTE | 2024-12-17 13:13 | W.PN.ANS.POP ---
Anesthesia Post Operative
- Anesthesia Post Op Note
Vital Signs Stable-See Nursing Note: Yes
Airway Patent: Yes
Adequate Pain Control: Yes
Change in Mental Status: No
Current Postoperative Nausea & Vomiting: No
Anesthesia Complications: No
General Anesthetic Recall: No
Unplanned Admission: No
Post Op Hydration Adequate: Yes
[2024-12-17] MEDS: FERRLECIT 110 MG IV (14:37)
[2024-12-17 14:52] LABS: Glucose - Point of Care 122 mg/dl (70-99)
[2024-12-17 16:19] LABS: Glucose - Point of Care 95 mg/dl (70-99)
--- NOTE | 2024-12-17 16:24 | PTCARENOTE ---
Pt resting comfortably in chair with family at bedside; Junctional on monitor and VSS: assessment unchanged.
[2024-12-17] MEDS: NSS IV (17:32)
--- NOTE | 2024-12-17 20:00 | PTCARENOTE ---
Patient received from RN @ 1900. Patient lying in bed w/ call riddle in reach. Junctional rhythm w/ RBBB. BP 136/82 HR 75. Heart sounds audible. Radial and pedal pulses present. A and V wires present but not connected to box. POX 95% 2L NC IS
1000. Lungs clear but diminished in the bases. 2x mediastinal chest tubes set to -20 suction draining serosanguineous fluid. No crepitus tidaling, or air leaks noted. Mayfield draining clear yellow urine. Bowel sounds hypoactive. Sternal incision
well approximated VALET ATTENDANT. Left radial A-line, RIJ cordis w/ swan @ 47 PAP 53/16 CVP 11. All lines leveled and zeroed. Right PIV patent and intact. Dobut infusing. See Worklist for details.
[2024-12-17 22:19] LABS: Glucose - Point of Care 177 mg/dl (70-99)
--- NOTE | 2024-12-17 23:03 | PTCARENOTE ---
Mayfield drained 15mL clear yellow urine, CT NING Meraz notified.
[2024-12-18] VITALS (36 sets, daily range): BP systolic 84–148; BP diastolic 52–107; PULSE 72; O2SAT 92–98; BMI 23.6
--- NOTE | 2024-12-18 00:13 | PTCARENOTE ---
Patient reassessed. Junctional rhythm on monitor. BP 125/81 HR 67 PAP 45/16 CVP 10 CI 2.22.
[2024-12-18] MEDS: ROXICODONE 2.5 MG PO (02:17)
--- NOTE | 2024-12-18 04:15 | PTCARENOTE ---
Patient assessment unchanged. Junctional rhythm on monitor. BP 131/62 HR 75 POX 96% 2L NC. Labs and EKG obtained.
[2024-12-18 05:21] LABS: Mixed Venous O2 Saturation 73.2 %
[2024-12-18 05:25] LABS: Hematocrit 31.9 % (39.0-52.0); Hemoglobin 10.9 g/dL (13.0-18.0); Mean Corp Hgb Conc. 34.2 g/dL (33.0-37.0); Mean Corpuscular Hgb 31.1 pg (27.0-31.0); Mean Corpuscular Volume 91.1 fL (80.0-94.0); Mean Platelet Volume 11.5 fL (7.4-10.4); Platelet Count 99 10^3/uL (130-400); Red Cell Dist. Width 15.9 % (11.5-14.5)
[2024-12-18 05:36] LABS: Blood Urea Nitrogen 34 mg/dl (9-20); Calcium 8.8 mg/dl (8.4-10.2); Carbon Dioxide 23 mmol/L (22-30); Chloride 106 mmol/L (98-107); Estimated Creatinine Clearance 62 ml/min; Glucose 113 mg/dl (70-99); Magnesium 2.3 mg/dl (1.6-2.3); Potassium 4.7 mmol/L (3.5-5.1); Sodium 133 mmol/L (135-145); eGFR > 60.00
[2024-12-18] MEDS: TYLENOL 1000 MG PO ×3 (06:09→22:55)
--- NOTE | 2024-12-18 06:33 | W.PN.CT ---
Today's Communication / Plan
-
-pod #2
-no issues overnight. Gets occasional RODRIGUEZ, worse with breathing in. No focal neuro deficits. Also, c/o incisional pain with burping
-accelerated junctional 70s with known RBBB (has A&V pw for backup)- holding BB and Amio
-CI 2.10, CO 3.96. mVO2 73.2 Drips: Dobut 4
-CT output: 2 meds 60/305 (serosanguineous) in 12/24 hrs
-PA 56/21, CVP 16
-wean Dobut as tolerated
-current meds (Dobut, ASA, Symbicort bid, Protonix)
-encourage IS, OOB
Assessment / Plan
-
Assessment:
-S/P Sternotomy/ Complex mitral valve reconstruction [triangular resection of P2 P3 with primary reapproximation, cleft closure between P1 and P2, 6 sets of [place]-Dominic cords with 3 placed to the anterior leaflet and 3 placed to the posterior leaflet,
36 mm band annuloplasty, Free margin remodelling at AL commissure]/Surgical, open, left atrial maze [combination of cryo and RF ablation]/ Left atrial appendage exclusion [40 mm device], by Dr. Orozco, 12/16/24, pod#2
-Postop KACY: Following surgery his EF remained the same at 55% with no new regional wall motion abnormalities. His RV appeared to be much more snappy with its contractions. After coming off cardiopulmonary bypass, there was none to trace residual
mitral valve insufficiency, there wasno systolic anterior motion the leaflets, and the mean gradient of 3 was across the valve. His tricuspid valve had a mild to moderate degree of insufficiency with a slightly dilated annulus at beginning the case.
After repairing his mitral valve, there was essentially no tricuspid valve deficiency and so this valve was left alone. His left atrial appendage was clipped with a 40 mm device flush to the base.
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
-Severe pulmonary hypertension
-Myxomatous mitral valve disease, type 2 pathology with bileaflet prolapse
-Severe mitral valve insufficiency
-Mild aortic valve stenosis
-Mild RV dysfunction
-New onset atrial fibrillation
-LVEF 50-55%
-RBBB
-GERD
-Asthma
-Former tobacco use (remote, college)
-Recent elevated LFTs
-Recent IVORY, resolved preop
-S/P inguinal hernia repair
-Acute postop blood loss/Anemia (stable, without blood transfusion)
-Acute postop thrombocytopenia (stable without active bleed)
-Acute postop atelectasis
-Acute postop hypovolemia with subsequent hypervolemia
-Acute postop CHB S/P A/V paced postop
-Acute postop junctional/accelerated junctional rhythm
Discussed patient care with: Nursing and Care Team
Subjective
Procedure
S/P Sternotomy/ Complex mitral valve reconstruction [triangular resection of P2 P3 with primary reapproximation, cleft closure between P1 and P2, 6 sets of [place]-Dominic cords with 3 placed to the anterior leaflet and 3 placed to the posterior leaflet,
36 mm band annuloplasty, Free margin remodelling at AL commissure]/Surgical, open, left atrial maze [combination of cryo and RF ablation]/ Left atrial appendage exclusion [40 mm device], by Dr. Orozco, 12/16/24
-
Date of Service: December 18, 2024
Objective Data
-
PT 18.0 Sec (11.4-14.6) H 12/17/24 03:48
INR 1.44 12/17/24 03:48
APTT 30.0 Sec (23.4-35.0) 12/16/24 15:28
Vital Signs
Vital Signs
Temp Pulse Resp BP Pulse Ox
98 F 72 27 127/107 95
12/18/24 03:00 12/18/24 03:15 12/18/24 03:15 12/18/24 03:00 12/18/24 03:00
CT Intake/Output/Weight
12/17/24 12/17/24 12/18/24
06:59 18:59 06:59
Intake Total 1109.7 / 1520.0 1466.6 / 1814.3 347.7 / 1814.3
Output Total 770 / 1185 670 / 930 260 / 930
Balance 339.7 / 335.0 796.6 / 884.3 87.7 / 884.3
SaO2: 95
Physical Exam
-
General: Awake and AOx3
Cardiovascular: Regular rate & rhythm, No Murmurs and Rub
Respiratory: Decreased Breath Sounds
Sternum: Stable
Incision: Clean, Dry and Intact
Extremities: No Edema
Abdomen: soft, nontender, nondistended, + decreased bowel sounds
Data Reviewed
-
Lab Results: Results Reviewed
Medications: Active Meds Reviewed
Chest X-Ray: Report Reviewed and Image Reviewed
ECG: Report Reviewed and Image Reviewed
--- NOTE | 2024-12-18 07:50 | PTCARENOTE ---
Received pt from slot shift manager RN; pt AAOX3 and pt OOB to chair with RN; Junctional on monitor and VSS; Epicardial A/V wires insulated; Markie High floated 47, A-line and PIV x1; Dobutamine infusing see flow sheet for details; Lungs diminished;
IS to 1000; CT x2 to -20 wall suction no air leak and no crepitus noted; positive bowel sounds; Mayfield catheter draining yellow urine; no edema noted; palpable pulses through out; surgical sites C/D/I; see flow sheet for details.
[2024-12-18] MEDS: NEURONTIN 100 MG PO ×3 (08:03→22:55)
[2024-12-18] MEDS: PROTONIX 40 MG PO (08:03)
[2024-12-18] MEDS: SENOKOT-S 1 TABLET PO ×2 (08:03→20:40)
[2024-12-18] MEDS: VITAMIN D3 (cholecalciferol) 25 MCG PO (08:03)
[2024-12-18] MEDS: LOW STRENGTH ASPIRIN 81 MG PO (08:03)
[2024-12-18] MEDS: THERAGRAN 1 TABLET PO (08:03)
[2024-12-18] MEDS: LIDOCAINE 4% PATCH TOPICAL (08:04)
[2024-12-18] MEDS: BACTROBAN 2% OINTMENT 1 APPLIC NASAL ×2 (08:04→20:42)
[2024-12-18] MEDS: ROXICODONE 5 MG PO (08:04)
[2024-12-18] MEDS: SYMBICORT 80/4.5 MCG INHALER 2 PUFF INH ×2 (08:42→19:43)
--- NOTE | 2024-12-18 08:50 | W.PN.INTV ---
Today's Communication / Plan
Recommendations
- Monitor sodium level
- Continue to titrate dobutamine as tolerated
- Incentive spirometry, increase activity as tolerated, sit in chair as tolerated, noted left lower lobe atelectasis
Assessment
-
S/p complex mitral valve repair POD #2
Titrate off pressors per protocol, currently on dobutamine @ 4.
ECHO reviewed
Management of chest tubes per primary service
Patient extubated 12/16, currently saturating well on nasal cannula
Chest x-ray unremarkable except for left basilar subsegmental atelectasis
Spirometry, 12/12/2024, FEV1 55% of predicted, FVC 64% of predicted. FEV1/FVC ratio decreased. Moderate obstructive disease. With decreased FVC, suspect there might be restriction also, recommend lung volumes and DLCO assessment with full
pulmonary function testing as outpatient.
Continue Symbicort, as needed DuoNeb
Aspiration precautions
Encouraged incentive spirometry, OOB/ambulation/early mobility
Advance diet as tolerated following extubation
GI prophylaxis: Protonix
Monitor critical I/O's
Creatinine improved to 1.1 today. Fluid balance, +821 mL.
Hb/platelets postoperatively reviewed, mild drift noted
Trend CBC for now
Can transfuse if indicated for Hb <7, plt <50 in surgical patients
DVT prophylaxis including SCDs
Insulin protocol initiated and ongoing
Transition to SQ/off as indicated per team
Other medical diagnoses:
- Severe Pulmonary HTN. PA 78/43, mPA 57. PCWP 38, PVR 6.4 genao, CO 3.54 and CI 1.88. Group II with severe MR and elevated PCWP. [place] readings reviewed this morning, 56 x 22, mean 32. MAP of 84. Dobutamine infusing at 4.
- Acute on suspected chronic heart failure with preserved ejection fraction, related to severe MR.
- Severe mitral regurgitation, s/p mitral valve repair 12/16/2024
- Atrial fibrillation with rapid ventricular response, on metoprolol (currently on hold) and amiodarone (On Hold)
- Acute kidney injury with cardiorenal syndrome, improving. Creatinine 1.1 today
- Hyponatremia, likely related to volume overload. 133 this AM, monitor for now
- History of asthma. Takes Breo at home. Currently on Symbicort twice a day and as needed DuoNeb. No wheezing on exam.
- Gastroesophageal reflux disease. On pantoprazole
- Pulmonary nodule. 2 mm. Out patient follow up with Pulmonary clinic, information added to discharge section.
Critical Care time 48 mins -- The patient is admitted for acute critical illness for the treatment of vital organ failure and/or prevention of further life-threatening conditions. Total care includes time spent in review of history, physical exam,
medications, hemodynamic/ventilator parameters, laboratory data, imaging and discussion with house staff, pharmacy, respiratory therapy, siding mechanic, and nursing.
Data:
Stress echo 10/04/2024: Baseline echo EF 60 to 65%. Moderately dilated LA, mild dilated RA. Severe mitral regurgitation with prolapse of posterior leaflet. Moderate tricuspid regurgitation with PAP of 75 mmHg. 9 minutes on Ren protocol achieving
92% predicted max heart rate. No wall motion abnormalities appeared at stress. Severe mitral regurgitation post exercise
Echo 05/22/2024: EF 60-65%. No regional LV wall motion abnormalities. LVH. Grade 2 diastolic dysfunction. Severe left atrial dilation with left atrium volume index severely increased. Normal RV size and function. Moderate mitral regurgitation
with posterior leaflet moderately prolapsed.
Echo 12/11/2024: nl LV size, EF 60-65%, nl wall motion, mild cLVH, mildly dilated RV, sev MR due to prolapse of post MV leaflet, mod (54/30mmHg, HOLDEN 1.1cm2), mild TR, PAP 55-60 mmHg
Cardiac catheterization 12/13/2024: LAD: Normal. LAD: Normal. Left circumflex: Normal. Ramus: Normal. RCA: Normal. No obstructive coronary artery disease. Significantly elevated right and left-sided filling pressures with reduced cardiac output
and mildly elevated systemic vascular resistance with severe pulmonary hypertension. Cardiac Output : 3.54 L/min by Maricruz calculation. Cardiac Index : 1.88 L/min/m-2 by Maricruz calculation. Systemic vascular resistance: 1309 dsc^(-5). Pulmonary vascular
resistance: 6.4 genao unit. AO (s/d) : 93/69
LVEDP : 22; No significant gradient across the aortic valve to suggest aortic stenosis. Invasive transaortic mean gradient of 2.55, aortic valve area of 2.63 cm� using cardiac output of 3.53 at heart rate of 127 bpm
Subjective Dataa
Subjective Data
Date of Service:
Date of Service: December 18, 2024
Subjective:
Patient comfortably lying in bed in no acute distress.
Review of Systems
Genitourinary: Other (Other than expected postoperative pain, no other symptoms reported.)
Objective Data
Data Reviewed
Vital Signs / I&O / Oxygen:
Vital Signs
Temp Pulse Resp BP Pulse Ox
98.3 F 62 16 123/76 86
12/18/24 08:00 12/18/24 08:42 12/18/24 08:42 12/18/24 07:00 12/18/24 08:00
Intake and Output
12/17/24 12/18/24 12/19/24
06:59 06:59 06:59
Intake Total 1458.0 / 1520.0 1939.5 / 1939.5 26.3 / 26.3
Output Total 1130 / 1185 1050 / 1050 80 / 80
Balance 328.0 / 335.0 889.5 / 889.5 -53.7 / -53.7
SaO2 [SIMV] 100
SaO2 [P-SIMV] 92
SaO2 86
Nasal Cannula flow liters per 2
minute
Physical Exam
General: Comfortable
HEENT: Normocephalic
Cardiovascular: S1-S2
Respiratory: Clear
GI: Non Distended
Neurology: Awake, Alert and Oriented
Skin: Warm
Labs/Micro/Reports
Lab Data
12/18/24 03:31
12/18/24 03:31
--- NOTE | 2024-12-18 09:05 | PTCARENOTE ---
A/V wires cut by CT PROPERTY MANAGER.
[2024-12-18] MEDS: LASIX 20 MG IV (09:21)
--- NOTE | 2024-12-18 11:52 | PTCARENOTE ---
Assessment unchanged; Junctional on monitor and VSS; chest tubes x2 and Mayfield catheter removed; pt worked with cardiac rehab; family at bedside and pt resting comfortably in chair awaiting lunch.
[2024-12-18] MEDS: DOBUTREX 500 MG 250 IV (12:49)
--- NOTE | 2024-12-18 12:54 | W.PN.CARDCBS ---
Addendum entered and electronically signed by Soraya Sepulveda MD 12/18/24 14:54:
I saw and examined the patient.
The Waterworks Chief Engineer's note was reviewed and I agree with the note.
Comment: He is currently sitting in the chair. Exam stable with decreased breath sounds at the bases. Right IJ catheter in place. Distant heart sounds but regular.
He is feeling tired but no other complaints. Denies chest pain and palpitations.
Telemetry independently reviewed by me. Previously junctional rhythm with stable heart rates now sinus rhythm while sitting in the chair.
He is status post mitral valve repair, left atrial appendage exclusion and left atrial maze, 12/16/2024
Doing well postop.
- Initially junctional rhythm now sinus rhythm. Avoid AV jay blocking agents.
- Continue usual postop care
- Wean pressors as tolerates
- Wean oxygen as tolerated
- Increase activity as tolerates
- Anemia acceptable. Low platelets noted. Continue to follow.
- Will eventually need Eliquis for PAF which was noted prior to surgery. Await hemostasis and okay from CT surgery.
Original Note:
Today's Communication / Plan
-
continue post op care
follow rhythm
holding BB/amio
Impression / Plan
-
PCP: Brian James
Card: Dr. Rahman [facility]
Cardiothoracic surgeon Dr. Jeff at [place]
Impression:
Presented 12/09/2024 w/ RASCON, palpitation
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
s/p mitral valve repair through traditional sternotomy 12/16/2024, Dr. Orozco
Post op accelerated junctional rhythm
Atrial fibrillation with RVR
s/p left atrial maze (combination of cryo and RF ablation) 12/16/2024, Dr. Orozco
Left atrial appendage clip 40 mm device 12/16/2024, Dr. Orozco
Acute HFpEF, proBNP 4880
Abnormal LFTs, Possible acute cholecystitis on Abd ultrasound, but HIDA 12/11/2024 without obstruction
IVORY
Hyperkalemia
Hyponatremia
Severe PHTN
RBBB of unknown chronicity
Asthma
GERD
Stress echo 10/04/2024: Baseline echo EF 60 to 65%. Moderately dilated LA, mild dilated RA. Severe mitral regurgitation with prolapse of posterior leaflet. Moderate tricuspid regurgitation with PAP of 75 mmHg. 9 minutes on Ren protocol achieving
92% predicted max heart rate. No wall motion abnormalities appeared at stress. Severe mitral regurgitation post exercise
Echo 05/22/2024: EF 60-65%. No regional LV wall motion abnormalities. LVH. Grade 2 diastolic dysfunction. Severe left atrial dilation with left atrium volume index severely increased. Normal RV size and function. Moderate mitral regurgitation
with posterior leaflet moderately prolapsed.
Echo 12/11/2024: nl LV size, EF 60-65%, nl wall motion, mild cLVH, mildly dilated RV, sev MR due to prolapse of post MV leaflet, mod (54/30mmHg, HOLDEN 1.1cm2), mild TR, PAP 55-60 mmHg
Cardiac catheterization 12/13/2024: LAD: Normal. LAD: Normal. Left circumflex: Normal. Ramus: Normal. RCA: Normal. No obstructive coronary artery disease. Significantly elevated right and left-sided filling pressures with reduced cardiac output
and mildly elevated systemic vascular resistance with severe pulmonary hypertension. Cardiac Output : 3.54 L/min by Maricruz calculation. Cardiac Index : 1.88 L/min/m-2 by Maricruz calculation. Systemic vascular resistance: 1309 dsc^(-5). Pulmonary vascular
resistance: 6.4 genao unit. AO (s/d) : 93/69
LVEDP : 22; No significant gradient across the aortic valve to suggest aortic stenosis. Invasive transaortic mean gradient of 2.55, aortic valve area of 2.63 cm� using cardiac output of 3.53 at heart rate of 127 bpm
Plan:
-S/p mitral valve repair through traditional sternotomy, left atrial appendage exclusion 40 mm device and left atrial maze (combination of cryo and RF ablation) 12/16/2024
-Postprocedure KACY EF 55% with trace MR and mean gradient 3 mmHg
-weaned off supp O2
-continues on dobut @3, wean as able
-with accelerated junctional rhythm on review of tele. continue to follow. holding amio/BB. he has known RBBB
-hgb 10.9, plts 99K. continue asa
-Will need eventual Eliquis for PAF prior to surgery when stable from CT standpoint
-diuresis. Cr improving, 1.1 on 12/18
-encouraged OOB/IS
-d/w nursing. d/w patient and family at bedside
HPI 12/09/2024: Patient is a 74-year-old male with past medical history significant for asthma, GERD, chronic mild elevation of LFTs and mitral valve regurgitation RASCON associated with exertional dizziness and palpitations. Patient reports around
Thanksgi of 2023 started noticing functional decline and reduced exercise tolerance. He was found to have moderate mitral regurgitation on echo in April 2024. He underwent stress echo in September 2024 which demonstrated severe mitral
regurgitation with moderate tricuspid regurgitation and severe pulmonary hypertension with PAP of 75 mmHg. Stress test did not show any acute ischemia. He did CT surgery Dr. Jeff at [facility] regarding discussion of mitral valve
surgery. He reported he wanted to wait until the fall and has not had a catheterization. Patient reports 2 weeks ago he developed significant GI illness with nausea and vomiting. Since that time he is felt poorly with poor appetite, abdominal
bloating, progressively worsening shortness of breath, exertional dizziness list/lightheadedness and palpitations. He purchased a smart watch who told him he was in atrial fibrillation and PCP started Toprol 25 mg and Eliquis within the last week.
Patient's symptoms have progressed and he was told to come to emergency room for evaluation. Patient's initial ECG is Afib with RVR. Labs with several abnormalities of unknown chronicity including Cre of 1.7, potassium 5.6, sodium 128 and AST/ALT
172/245, all labs are being evaluated without previous for comparison. Initial Troponin was normal at 0.025 and pro-BNP 4880. CXR read as small B/L pleural effusions.
Presented with dyspnea on exertion, palpitations, A-fib with rapid ventricular response, acute heart failure secondary to severe symptomatic mitral regurgitation with P2/P3 severe prolapse and evidence of torn cord and mild coaptation of the mitral
leaflets on KACY 12/12/2024 with overall preserved LV systolic function estimated 60%, mild to moderate aortic stenosis with trace AI and mild to moderate tricuspid regurgitation
-Cardiac catheterization as part of preoperative assessment found to have right dominant system with no obstructive coronary artery disease. There was no significant gradient across the aortic valve to suggest significant aortic stenosis. LVEDP 22
Progress Note - [employer]
Subjective
Date of Service: December 18, 2024
feeling improved today compared to yesterday. pain well controlled. breathing improved s/p CT removal
Objective
Labs:
12/18/24 03:31
12/18/24 03:31
Labs
Hgb 10.9 g/dL (13.0-18.0) L 12/18/24 03:31
Hct 31.9 % (39.0-52.0) L 12/18/24 03:31
Plt Count 99 10^3/uL (130-400) L D 12/18/24 03:31
PT 18.0 Sec (11.4-14.6) H 12/17/24 03:48
INR 1.44 12/17/24 03:48
APTT 30.0 Sec (23.4-35.0) 12/16/24 15:28
Sodium 133 mmol/L (135-145) L 12/18/24 03:31
Potassium 4.7 mmol/L (3.5-5.1) 12/18/24 03:31
BUN 34 mg/dl (9-20) H 12/18/24 03:31
Creatinine 1.1 mg/dL (0.7-1.3) 12/18/24 03:31
Glucose 113 mg/dl (70-99) H 12/18/24 03:31
Vital Signs and I&O:
Vital Signs
Temp Pulse Resp BP Pulse Ox
98.5 F 64 26 100/79 95
12/18/24 12:00 12/18/24 12:00 12/18/24 12:00 12/18/24 12:00 12/18/24 12:00
Vital Signs
Temp Pulse Resp BP Pulse Ox
98.5 F 64 26 100/79 95
12/18/24 12:00 12/18/24 12:00 12/18/24 12:00 12/18/24 12:00 12/18/24 12:00
Intake & Output
12/16/24 12/17/24 12/18/24 12/19/24
07:59 07:59 07:59 07:59
Intake Total 1520.0 / 1582.0 1877.5 / 1903.8 217.8 / 217.8
Output Total 1974 1185 / 1240 995 / 1075 380 / 380
Balance -1974 335.0 / 342.0 882.5 / 828.8 -162.2 / -162.2
Physical Exam
Physical Exam
GEN: No distress, awake, alert, oriented x3. sitting in chair
HEENT: supple, anicteric, mmm, oemi
LUNGS: CTA B/L, no wheezes
CV: Reg, S1/S2, no murmur
ABD: soft, BS+, NT/ND
EXT: No cyanosis, clubbing. trace edema of B/L LE
NEURO: Gross non-focal
SKIN: Warm, pink, dry. No rash
[2024-12-18] MEDS: FERRLECIT 110 MG IV (14:01)
[2024-12-18 14:34] LABS: Mixed Venous O2 Saturation 58.1 %
--- NOTE | 2024-12-18 14:34 | CM ---
Reviewed chart. Met with Mr. Hickey to review discharge plans. He states he is feeling better today. Prior to admission he resides with his spouse in a three story home with three steps to enter. His main bedroom and full bathroom are on the
first floor. Prior to admission he was independent with ambulation and adls. He ramirez not have any DME in the home. He has a prescription plan. Medical work-up in progress. The discharge plan is to return home with his spouse and home visit by the
Transitional Care Nurse when medically stable.
[2024-12-18 14:37] LABS: Mixed Venous O2 Saturation 52.9 %
--- NOTE | 2024-12-18 17:05 | PTCARENOTE ---
A-line removed per order; Junctional on monitor and VSS; assessment unchanged.
--- NOTE | 2024-12-18 20:40 | PTCARENOTE ---
Patient received from Rn @ 1900. Patient sitting OOB in chair comfortably w/ call riddle in reach. AOx3. Junctional rhythm on monitor BP 113/81 HR 72. Heart sounds audible. Radial and pedal pulses present. Edema noted on bilateral ankles. Lungs
sounds clear and diminished in bases bilaterally. POX 100% RA. IS 1250. Voiding clear dark yellow urine. Bowel sounds present. No BM noted. Sternal incision well approximated ISIDRO. Chest tube dressing dry and intact. Right PIV patent and
intact. RIJ swan @ 47 PAP 57/26 CVP 21. All lines leveled and zeroed. Dobut infusing per protocol.
--- NOTE | 2024-12-18 21:30 | PTCARENOTE ---
CHG cloth bath performed. Leads and gown changed. Chest tube dressing changed.
[2024-12-18] MEDS: NSS 500 IV (22:54)
[2024-12-19] VITALS (28 sets, daily range): BP systolic 94–129; BP diastolic 65–79; PULSE 66; O2SAT 96–97; BMI 23.9
--- NOTE | 2024-12-19 00:51 | PTCARENOTE ---
Patient reassessed. Junctional rhythm on monitor. VSS.
--- NOTE | 2024-12-19 04:15 | PTCARENOTE ---
Labs drawn, Platelet count 85. CT NING Meraz notified.
[2024-12-19 04:17] LABS: Mixed Venous O2 Saturation 69.1 %
[2024-12-19 04:28] LABS: Hematocrit 28.3 % (39.0-52.0); Hemoglobin 9.7 g/dL (13.0-18.0); Mean Corp Hgb Conc. 34.3 g/dL (33.0-37.0); Mean Corpuscular Hgb 31.2 pg (27.0-31.0); Mean Platelet Volume 11.3 fL (7.4-10.4); Platelet Count 85 10^3/uL (130-400); Red Blood Cell Count 3.11 10^6/uL (4.70-6.10); Red Cell Dist. Width 15.7 % (11.5-14.5); White Blood Cell Count 8.4 10^3/uL (4.8-10.8)
[2024-12-19 04:37] LABS: Blood Urea Nitrogen 33 mg/dl (9-20); Calcium 8.3 mg/dl (8.4-10.2); Carbon Dioxide 27 mmol/L (22-30); Chloride 104 mmol/L (98-107); Estimated Creatinine Clearance 86 ml/min; Glucose 106 mg/dl (70-99); Magnesium 2.2 mg/dl (1.6-2.3); Potassium 4.2 mmol/L (3.5-5.1); Sodium 132 mmol/L (135-145); eGFR > 60.00
[2024-12-19] MEDS: TYLENOL 1000 MG PO ×3 (06:31→21:48)
--- NOTE | 2024-12-19 06:56 | W.PN.CT ---
Today's Communication / Plan
-
-pod #3
-accelerated junctional postop, no significant pauses or bradycardia
-drips: Dobut 3. mVO2 69.1
-wean Dobut as tolerated
-holding BB and Amio d/t junctional
-follow platelets - 85K today
-Cr improved - 0.8 today (1.1-1.2 preop)
-ambulate, encourage IS
Assessment / Plan
-
Assessment:
-S/P Sternotomy/ Complex mitral valve reconstruction [triangular resection of P2 P3 with primary reapproximation, cleft closure between P1 and P2, 6 sets of [place]-Dominic cords with 3 placed to the anterior leaflet and 3 placed to the posterior leaflet,
36 mm band annuloplasty, Free margin remodelling at AL commissure]/Surgical, open, left atrial maze [combination of cryo and RF ablation]/ Left atrial appendage exclusion [40 mm device], by Dr. Orozco, 12/16/24, pod#3
-Postop KACY: Following surgery his EF remained the same at 55% with no new regional wall motion abnormalities. His RV appeared to be much more snappy with its contractions. After coming off cardiopulmonary bypass, there was none to trace residual
mitral valve insufficiency, there wasno systolic anterior motion the leaflets, and the mean gradient of 3 was across the valve. His tricuspid valve had a mild to moderate degree of insufficiency with a slightly dilated annulus at beginning the case.
After repairing his mitral valve, there was essentially no tricuspid valve deficiency and so this valve was left alone. His left atrial appendage was clipped with a 40 mm device flush to the base.
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
-Severe pulmonary hypertension
-Myxomatous mitral valve disease, type 2 pathology with bileaflet prolapse
-Severe mitral valve insufficiency
-Mild aortic valve stenosis
-Mild RV dysfunction
-New onset atrial fibrillation
-LVEF 50-55%
-RBBB
-GERD
-Asthma
-Former tobacco use (remote, college)
-Recent elevated LFTs
-Recent IVORY, resolved preop
-S/P inguinal hernia repair
-Acute postop blood loss/Anemia (stable, without blood transfusion)
-Acute postop thrombocytopenia (stable without active bleed)
-Acute postop atelectasis
-Acute postop hypovolemia with subsequent hypervolemia
-Acute postop CHB S/P A/V paced postop
-Acute postop junctional/accelerated junctional rhythm
Discussed patient care with: Nursing and Care Team
Subjective
Procedure
S/P Sternotomy/ Complex mitral valve reconstruction [triangular resection of P2 P3 with primary reapproximation, cleft closure between P1 and P2, 6 sets of [place]-Dominic cords with 3 placed to the anterior leaflet and 3 placed to the posterior leaflet,
36 mm band annuloplasty, Free margin remodelling at AL commissure]/Surgical, open, left atrial maze [combination of cryo and RF ablation]/ Left atrial appendage exclusion [40 mm device], by Dr. Orozco, 12/16/24
-
Date of Service: December 19, 2024
Objective Data
-
Lab Results
12/19/24 04:11
12/19/24 04:11
PT 18.0 Sec (11.4-14.6) H 12/17/24 03:48
INR 1.44 12/17/24 03:48
APTT 30.0 Sec (23.4-35.0) 12/16/24 15:28
Vital Signs
Vital Signs
Temp Pulse Resp BP Pulse Ox
98.1 F 68 12 125/77 100
12/19/24 06:00 12/19/24 06:15 12/19/24 06:15 12/19/24 06:00 12/19/24 06:15
CT Intake/Output/Weight
12/18/24 12/18/24 12/19/24
06:59 18:59 06:59
Intake Total 472.9 / 1939.5 493.0 / 868.6 375.6 / 868.6
Output Total 380 / 1050 580 / 1130 550 / 1130
Balance 92.9 / 889.5 -87.0 / -261.4 -174.4 / -261.4
SaO2: 100
Physical Exam
-
General: Awake and AOx3
Cardiovascular: Regular rate & rhythm, No Murmurs and Rub
Respiratory: Decreased Breath Sounds
Sternum: Stable
Incision: Clean, Dry and Intact
Extremities: No Edema
Abdomen: soft, nontender, nondistended
Data Reviewed
-
Lab Results: Results Reviewed
Medications: Active Meds Reviewed
Chest X-Ray: Report Reviewed and Image Reviewed
ECG: Report Reviewed and Image Reviewed
[2024-12-19] MEDS: SYMBICORT 80/4.5 MCG INHALER 2 PUFF INH ×2 (07:53→20:13)
--- NOTE | 2024-12-19 08:00 | PTCARENOTE ---
Received pt from plant operator/shift supervisor RN; pt AAOX3 and resting comfortably in chair; Junctional on monitor and VSS; RIJ Chrissie, [place] floated to 47 and PIV x2 all lines leveled and zeroed; Dobutamine infusing see flow sheet for details; Lungs diminishes; IS
to 1250; bowels hypoactive; pt voiding yellow urine; palpable pulses through; trace lower extremity edema noted; all surgical sites C/D/I; see nursing documentation for further details.
CI 2.25
CO 4.26
SVR 1089
[2024-12-19] MEDS: THERAGRAN 1 TABLET PO (08:38)
[2024-12-19] MEDS: ROXICODONE 5 MG PO (08:38)
[2024-12-19] MEDS: PROTONIX 40 MG PO (08:38)
[2024-12-19] MEDS: LOW STRENGTH ASPIRIN 81 MG PO (08:38)
[2024-12-19] MEDS: NEURONTIN 100 MG PO ×3 (08:38→21:48)
[2024-12-19] MEDS: BACTROBAN 2% OINTMENT 1 APPLIC NASAL ×2 (08:38→20:14)
[2024-12-19] MEDS: LIDOCAINE 4% PATCH TOPICAL (08:39)
[2024-12-19] MEDS: VITAMIN D3 (cholecalciferol) 25 MCG PO (08:39)
[2024-12-19] MEDS: SENOKOT-S 1 TABLET PO ×2 (08:39→20:14)
[2024-12-19] MEDS: LASIX 40 MG IV (08:39)
--- NOTE | 2024-12-19 08:42 | W.PN.INTV ---
Today's Communication / Plan
Recommendations
- Incentive spirometry
- Wean dobutamine as tolerated
- Defer timing for chemical DVT prophylaxis to CT surgery
Assessment
-
Patient is a 74-year-old gentleman with history of asthma and severe mitral valve regurgitation who follows with [facility] service. Patient has been having worsening exercise intolerance shortness of breath over the last few
months. He presented to ED for further evaluation. Patient also was recently diagnosed with atrial fibrillation and had been on metoprolol and Eliquis. In the ED he was noted to have A-fib with rapid ventricular rate, hyponatremia, hyperkalemia,
acute renal failure as well as mild transaminitis. He was admitted to the hospital for further workup. Workup included echocardiogram followed by right and left heart catheterization which was suggestive of severe mitral valve regurgitation with
pulmonary hypertension. CT surgery service was consulted and patient was taken to the OR today for complex mitral valve repair. In addition patient had maze procedure performed as well. Postsurgery, he was admitted to cardiovascular ICU and
stallion keeper service was consulted for further input.
S/p complex mitral valve repair POD #3
Titrate off pressors per protocol, currently on dobutamine @ 2. MAP 89, PA 54/25 (34)
ECHO reviewed
Management of chest tubes per primary service
Patient extubated 12/16, currently saturating well on RA
Chest x-ray unremarkable except for left basilar subsegmental atelectasis
Spirometry, 12/12/2024, FEV1 55% of predicted, FVC 64% of predicted. FEV1/FVC ratio decreased. Moderate obstructive disease. With decreased FVC, suspect there might be restriction also, recommend lung volumes and DLCO assessment with full
pulmonary function testing as outpatient.
Continue Symbicort, as needed DuoNeb. No wheezing on exam.
Aspiration precautions
Encouraged incentive spirometry, OOB/ambulation/early mobility
Advance diet as tolerated following extubation
GI prophylaxis: Protonix
Monitor critical I/O's
Creatinine improved to 0.8 today. Fluid balance, -306.4
Hb/platelets postoperatively reviewed, mild drift noted. Hb 9.7 today, platelets down to 85
Trend CBC for now
Can transfuse if indicated for Hb <7, plt <50 in surgical patients
DVT prophylaxis including SCDs
Off insulin drip now.
Other medical diagnoses:
- Severe Pulmonary HTN. PA 78/43, mPA 57. PCWP 38, PVR 6.4 genao, CO 3.54 and CI 1.88. Group II with severe MR and elevated PCWP. [place] readings reviewed this morning, 56 x 22, mean 32. MAP of 84. Dobutamine infusing at 4.
- Acute on suspected chronic heart failure with preserved ejection fraction, related to severe MR.
- Severe mitral regurgitation, s/p mitral valve repair 12/16/2024
- Atrial fibrillation with rapid ventricular response, on metoprolol (currently on hold) and amiodarone (On Hold)
- Acute kidney injury with cardiorenal syndrome, improving. Creatinine 1.1 today
- Hyponatremia, likely related to volume overload. 133 this AM, monitor for now
- History of asthma. Takes Breo at home. Currently on Symbicort twice a day and as needed DuoNeb. No wheezing on exam. had 1 episode of coughing up house colored mucous plug 12/18 at night, no further episodes since.
- Gastroesophageal reflux disease. On pantoprazole
- Pulmonary nodule. 2 mm. Out patient follow up with Pulmonary clinic, information added to discharge section.
Critical Care time 45 mins -- The patient is admitted for acute critical illness for the treatment of vital organ failure and/or prevention of further life-threatening conditions. Total care includes time spent in review of history, physical exam,
medications, hemodynamic/ventilator parameters, laboratory data, imaging and discussion with house staff, pharmacy, respiratory therapy, glass wool blanket machine feeder, and nursing.
Data:
Stress echo 10/04/2024: Baseline echo EF 60 to 65%. Moderately dilated LA, mild dilated RA. Severe mitral regurgitation with prolapse of posterior leaflet. Moderate tricuspid regurgitation with PAP of 75 mmHg. 9 minutes on Ren protocol achieving
92% predicted max heart rate. No wall motion abnormalities appeared at stress. Severe mitral regurgitation post exercise
Echo 05/22/2024: EF 60-65%. No regional LV wall motion abnormalities. LVH. Grade 2 diastolic dysfunction. Severe left atrial dilation with left atrium volume index severely increased. Normal RV size and function. Moderate mitral regurgitation
with posterior leaflet moderately prolapsed.
Echo 12/11/2024: nl LV size, EF 60-65%, nl wall motion, mild cLVH, mildly dilated RV, sev MR due to prolapse of post MV leaflet, mod (54/30mmHg, HOLDEN 1.1cm2), mild TR, PAP 55-60 mmHg
Cardiac catheterization 12/13/2024: LAD: Normal. LAD: Normal. Left circumflex: Normal. Ramus: Normal. RCA: Normal. No obstructive coronary artery disease. Significantly elevated right and left-sided filling pressures with reduced cardiac output
and mildly elevated systemic vascular resistance with severe pulmonary hypertension. Cardiac Output : 3.54 L/min by Maricruz calculation. Cardiac Index : 1.88 L/min/m-2 by Maricruz calculation. Systemic vascular resistance: 1309 dsc^(-5). Pulmonary vascular
resistance: 6.4 genao unit. AO (s/d) : 93/69
LVEDP : 22; No significant gradient across the aortic valve to suggest aortic stenosis. Invasive transaortic mean gradient of 2.55, aortic valve area of 2.63 cm� using cardiac output of 3.53 at heart rate of 127 bpm
Subjective Dataa
Subjective Data
Date of Service:
Date of Service: December 19, 2024
Subjective:
Patient comfortably sitting in chair, in no acute distress.
Review of Systems
Genitourinary: Other (All 14 systems reviewed and negative except as stated above in the history of present illness.)
Objective Data
Data Reviewed
Vital Signs / I&O / Oxygen:
Vital Signs
Temp Pulse Resp BP Pulse Ox
98.1 F 67 169 129/72 100
12/19/24 06:00 12/19/24 07:54 12/19/24 07:54 12/19/24 07:00 12/19/24 07:01
Intake and Output
12/18/24 12/19/24 12/20/24
06:59 06:59 06:59
Intake Total 1939.5 / 1939.5 868.6 / 894.9 26.3 / 26.3
Output Total 1050 / 1050 1130 / 1255 125 / 125
Balance 889.5 / 889.5 -261.4 / -360.1 -98.7 / -98.7
SaO2 [SIMV] 100
SaO2 [P-SIMV] 92
SaO2 100
Nasal Cannula flow liters per 2
minute
Physical Exam
General: Comfortable
HEENT: Normocephalic
Cardiovascular: S1-S2
Respiratory: Clear
GI: Non Distended
Neurology: Awake, Alert and Oriented
Skin: Warm
Labs/Micro/Reports
Lab Data
12/19/24 04:11
12/19/24 04:11
[2024-12-19] MEDS: KCL 40 MEQ PO (08:53)
--- NOTE | 2024-12-19 12:09 | CM ---
Reviewed chart. Met with Mr. Hickey to review discharge plans. He states he is feeling well. He states he ambulated today. We reviewed a home visit by the Transitional Care Nurse. He is agreeable to a home visit. He states his spouse will be
home to assist in his care if needed. Prior to admission he resides with his spouse in a three story home with three steps to enter. His main bedroom and full bathroom are on the first floor. Prior to admission he was independent with ambulation
and adls. He does not have any DME in the home. He has a prescription plan. Medical work-up in progress. The discharge plan is to return home with his spouse and a home visit by the Transitional Care Nurse when medically stable.
[2024-12-19 12:30] LABS: Mixed Venous O2 Saturation 61.7 %
[2024-12-19 12:34] LABS: Mixed Venous O2 Saturation 57.4 %
--- NOTE | 2024-12-19 12:55 | W.PN.CARDCBS ---
Addendum entered and electronically signed by Fracisco Aguilar DO 12/19/24 17:43:
I saw and examined the patient.
The Auto Tune Up Mechanic's note was reviewed and I agree with the note.
Comment:
Plan:
Cont post op care
Wean Dobutamine as able
In sinus rhythm
Post op Echo pending.
Monitor volume status. Received lasix 40 mg IV today
Discussed with nursing.
Original Note:
Today's Communication / Plan
-
continue post op care
now in SR
echo in AM
Impression / Plan
-
PCP: Brian James
Card: Dr. Rahman [facility]
Cardiothoracic surgeon Dr. Jeff at [facility]
Impression:
Presented 12/09/2024 w/ RASCON, palpitation
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
s/p mitral valve repair through traditional sternotomy 12/16/2024, Dr. Orozco
Post op accelerated junctional rhythm
Atrial fibrillation with RVR
s/p left atrial maze (combination of cryo and RF ablation) 12/16/2024, Dr. Orozco
Left atrial appendage clip 40 mm device 12/16/2024, Dr. Orozco
Acute HFpEF, proBNP 4880
Abnormal LFTs, Possible acute cholecystitis on Abd ultrasound, but HIDA 12/11/2024 without obstruction
IVORY
Hyperkalemia
Hyponatremia
Severe PHTN
RBBB of unknown chronicity
Asthma
GERD
Stress echo 10/04/2024: Baseline echo EF 60 to 65%. Moderately dilated LA, mild dilated RA. Severe mitral regurgitation with prolapse of posterior leaflet. Moderate tricuspid regurgitation with PAP of 75 mmHg. 9 minutes on Ren protocol achieving
92% predicted max heart rate. No wall motion abnormalities appeared at stress. Severe mitral regurgitation post exercise
Echo 05/22/2024: EF 60-65%. No regional LV wall motion abnormalities. LVH. Grade 2 diastolic dysfunction. Severe left atrial dilation with left atrium volume index severely increased. Normal RV size and function. Moderate mitral regurgitation
with posterior leaflet moderately prolapsed.
Echo 12/11/2024: nl LV size, EF 60-65%, nl wall motion, mild cLVH, mildly dilated RV, sev MR due to prolapse of post MV leaflet, mod (54/30mmHg, HOLDEN 1.1cm2), mild TR, PAP 55-60 mmHg
Cardiac catheterization 12/13/2024: LAD: Normal. LAD: Normal. Left circumflex: Normal. Ramus: Normal. RCA: Normal. No obstructive coronary artery disease. Significantly elevated right and left-sided filling pressures with reduced cardiac output
and mildly elevated systemic vascular resistance with severe pulmonary hypertension. Cardiac Output : 3.54 L/min by Maricruz calculation. Cardiac Index : 1.88 L/min/m-2 by Maricruz calculation. Systemic vascular resistance: 1309 dsc^(-5). Pulmonary vascular
resistance: 6.4 genao unit. AO (s/d) : 93/69
LVEDP : 22; No significant gradient across the aortic valve to suggest aortic stenosis. Invasive transaortic mean gradient of 2.55, aortic valve area of 2.63 cm� using cardiac output of 3.53 at heart rate of 127 bpm
Plan:
-S/p mitral valve repair through traditional sternotomy, left atrial appendage exclusion 40 mm device and left atrial maze (combination of cryo and RF ablation) 12/16/2024
-Postprocedure KACY EF 55% with trace MR and mean gradient 3 mmHg
-doing well
-swan out today
-slow wean of dobut, currently on 2
-rhythm improved, appears SR with 1st degree av block and RBBB, which is known. holding amio/BB and follow on tele
-echo in AM
-hgb 9.7, plts 85K. follow. continue asa. Will need eventual Eliquis for PAF prior to surgery when stable from CT standpoint
-diuresis. Cr improving, 0.8 on 12/19
-encouraged OOB/IS
-d/w nursing, CT surgery
HPI 12/09/2024: Patient is a 74-year-old male with past medical history significant for asthma, GERD, chronic mild elevation of LFTs and mitral valve regurgitation RASCON associated with exertional dizziness and palpitations. Patient reports around
[place] of 2023 started noticing functional decline and reduced exercise tolerance. He was found to have moderate mitral regurgitation on echo in April 2024. He underwent stress echo in September 2024 which demonstrated severe mitral
regurgitation with moderate tricuspid regurgitation and severe pulmonary hypertension with PAP of 75 mmHg. Stress test did not show any acute ischemia. He did CT surgery [facility]. [facility] regarding discussion of mitral valve
surgery. He reported he wanted to wait until the fall and has not had a catheterization. Patient reports 2 weeks ago he developed significant GI illness with nausea and vomiting. Since that time he is felt poorly with poor appetite, abdominal
bloating, progressively worsening shortness of breath, exertional dizziness list/lightheadedness and palpitations. He purchased a smart watch who told him he was in atrial fibrillation and PCP started Toprol 25 mg and Eliquis within the last week.
Patient's symptoms have progressed and he was told to come to emergency room for evaluation. Patient's initial ECG is Afib with RVR. Labs with several abnormalities of unknown chronicity including Cre of 1.7, potassium 5.6, sodium 128 and AST/ALT
172/245, all labs are being evaluated without previous for comparison. Initial Troponin was normal at 0.025 and pro-BNP 4880. CXR read as small B/L pleural effusions.
Presented with dyspnea on exertion, palpitations, A-fib with rapid ventricular response, acute heart failure secondary to severe symptomatic mitral regurgitation with P2/P3 severe prolapse and evidence of torn cord and mild coaptation of the mitral
leaflets on KACY 12/12/2024 with overall preserved LV systolic function estimated 60%, mild to moderate aortic stenosis with trace AI and mild to moderate tricuspid regurgitation
-Cardiac catheterization as part of preoperative assessment found to have right dominant system with no obstructive coronary artery disease. There was no significant gradient across the aortic valve to suggest significant aortic stenosis. LVEDP 22
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
Subjective
Date of Service: December 19, 2024
denies CP, SOB. reports pain significantly improved today
Objective
Labs:
12/19/24 04:11
12/19/24 04:11
Labs
Hgb 9.7 g/dL (13.0-18.0) L 12/19/24 04:11
Hct 28.3 % (39.0-52.0) L 12/19/24 04:11
Plt Count 85 10^3/uL (130-400) L 12/19/24 04:11
PT 18.0 Sec (11.4-14.6) H 12/17/24 03:48
INR 1.44 12/17/24 03:48
APTT 30.0 Sec (23.4-35.0) 12/16/24 15:28
Sodium 132 mmol/L (135-145) L 12/19/24 04:11
Potassium 4.2 mmol/L (3.5-5.1) 12/19/24 04:11
BUN 33 mg/dl (9-20) H 12/19/24 04:11
Creatinine 0.8 mg/dL (0.7-1.3) 12/19/24 04:11
Glucose 106 mg/dl (70-99) H 12/19/24 04:11
Vital Signs and I&O:
Vital Signs
Temp Pulse Resp BP Pulse Ox
98.2 F 66 16 99/71 96
12/19/24 11:00 12/19/24 11:30 12/19/24 11:30 12/19/24 11:00 12/19/24 11:15
Vital Signs
Temp Pulse Resp BP Pulse Ox
98.2 F 66 16 99/71 96
12/19/24 11:00 12/19/24 11:30 12/19/24 11:30 12/19/24 11:00 12/19/24 11:15
Intake & Output
12/17/24 12/18/24 12/19/2425
07:59 07:59 07:59 07:59
Intake Total 1520.0 / 1582.0 1877.5 / 1903.8 894.9 / 919.1 96.8 / 96.8
Output Total 1185 / 1240 995 / 1075 1255 / 1255 700 / 700
Balance 335.0 / 342.0 882.5 / 828.8 -360.1 / -335.9 -603.2 / -603.2
Physical Exam
Physical Exam
GEN: No distress, awake, alert, oriented x3
HEENT: supple, anicteric, mmm, eomi
LUNGS: Few crackles B/L bases, no wheezes
CV: Reg, S1/S2, no murmur
ABD: soft, BS+, NT/ND
EXT: No cyanosis, clubbing. trace edema of B/L LE
NEURO: Gross non-focal
SKIN: Warm, pink, dry. No rash
--- NOTE | 2024-12-19 13:20 | PTCARENOTE ---
Assessment unchanged; NSR 1st Degree AVB and RBBB on monitor and VSS; pt transfered back to bed and [place]-surjit removed per CT MEDICAL REVIEW SPECIALIST order; Dobutamine remains at 2 see flow sheet for details.
[2024-12-19] MEDS: FERRLECIT 110 MG IV (14:59)
[2024-12-19] MEDS: NSS IV (15:48)
--- NOTE | 2024-12-19 16:09 | PTCARENOTE ---
~1500: Received handoff report from Heidi COLMENARES. Radha OOB in chair with at bedside. Pt Aox4, NSR on tele, RA satting >90% lungs sound clear bilaterally, SBP 100s. Pt does not c/o pain at this time. Sternal incision pporximated and ADMINISTRATIVE PERSONAL ASSISTANT. Chest
tube site dressing CDI. R cordis present, dressing CDI with dobutamine and KVO infusing per order. Ferrlecit infusing into PIV per order. Patient voids in urinal. 1500 on IS. All needs met at this time, call riddle within reach.
--- NOTE | 2024-12-19 19:01 | PTCARENOTE ---
Patient OOB in chair. Ambulated in halls with standby assistance to push IV pumps. Dobutamine remains on 2 through cordis. Pt does not c/o pain at this time. All needs met, call riddle within reach.
[2024-12-19] MEDS: FLEXERIL 5 MG PO (21:49)
[2024-12-20] VITALS (16 sets, daily range): BP systolic 86–127; BP diastolic 65–84; PULSE 71; O2SAT 96–97; BMI 24.0
[2024-12-20 04:04] LABS: Mixed Venous O2 Saturation 66.2 %
[2024-12-20 04:25] LABS: Hematocrit 29.8 % (39.0-52.0); Mean Corp Hgb Conc. 33.6 g/dL (33.0-37.0); Mean Corpuscular Hgb 30.9 pg (27.0-31.0); Mean Platelet Volume 11.4 fL (7.4-10.4); Platelet Count 111 10^3/uL (130-400); Red Blood Cell Count 3.24 10^6/uL (4.70-6.10); Red Cell Dist. Width 15.5 % (11.5-14.5); White Blood Cell Count 7.9 10^3/uL (4.8-10.8)
[2024-12-20 04:41] LABS: Blood Urea Nitrogen 27 mg/dl (9-20); Calcium 8.1 mg/dl (8.4-10.2); Carbon Dioxide 25 mmol/L (22-30); Chloride 105 mmol/L (98-107); Estimated Creatinine Clearance 86 ml/min; Glucose 93 mg/dl (70-99); Magnesium 2.3 mg/dl (1.6-2.3); Potassium 4.3 mmol/L (3.5-5.1); Sodium 132 mmol/L (135-145); eGFR > 60.00
[2024-12-20] MEDS: TYLENOL 1000 MG PO ×2 (06:13→21:30)
--- NOTE | 2024-12-20 07:00 | PTCARENOTE ---
Assumed care of patient from night time babysitter . AAO x 3 , SR on monitor. Room air 96%, IS to 1500. Occasional non productive cough . RT IJ cordis with dobutamine infusing. Passing flatus and voiding wo issue. Plan for day discussed.
[2024-12-20] MEDS: SYMBICORT 80/4.5 MCG INHALER 2 PUFF INH ×2 (07:39→17:32)
[2024-12-20] MEDS: NEURONTIN 100 MG PO ×3 (08:26→21:30)
[2024-12-20] MEDS: LOW STRENGTH ASPIRIN 81 MG PO (08:26)
[2024-12-20] MEDS: SENOKOT-S 1 TABLET PO ×2 (08:26→19:39)
[2024-12-20] MEDS: PROTONIX 40 MG PO (08:26)
[2024-12-20] MEDS: THERAGRAN 1 TABLET PO (08:26)
[2024-12-20] MEDS: BACTROBAN 2% OINTMENT 1 APPLIC NASAL (08:26)
[2024-12-20] MEDS: VITAMIN D3 (cholecalciferol) 25 MCG PO (08:26)
--- NOTE | 2024-12-20 08:26 | W.PN.CT ---
Today's Communication / Plan
-
-pod #4
-no issues overnight
-mVO2 66.2. Drips: Dobut 2
-slow Dobut wean
-regained nsr - holding BB and Amio
-weaned off O2 - pOx 95% on RA
-encourage Is, OOB, ambulate
Assessment / Plan
-
Assessment:
-S/P Sternotomy/ Complex mitral valve reconstruction [triangular resection of P2 P3 with primary reapproximation, cleft closure between P1 and P2, 6 sets of [place] cords with 3 placed to the anterior leaflet and 3 placed to the posterior leaflet,
36 mm band annuloplasty, Free margin remodelling at AL commissure]/Surgical, open, left atrial maze [combination of cryo and RF ablation]/ Left atrial appendage exclusion [40 mm device], by Dr. Orozco, 12/16/24, pod#4
-Postop KACY: Following surgery his EF remained the same at 55% with no new regional wall motion abnormalities. His RV appeared to be much more snappy with its contractions. After coming off cardiopulmonary bypass, there was none to trace residual
mitral valve insufficiency, there wasno systolic anterior motion the leaflets, and the mean gradient of 3 was across the valve. His tricuspid valve had a mild to moderate degree of insufficiency with a slightly dilated annulus at beginning the case.
After repairing his mitral valve, there was essentially no tricuspid valve deficiency and so this valve was left alone. His left atrial appendage was clipped with a 40 mm device flush to the base.
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
-Severe pulmonary hypertension
-Myxomatous mitral valve disease, type 2 pathology with bileaflet prolapse
-Severe mitral valve insufficiency
-Mild aortic valve stenosis
-Mild RV dysfunction
-New onset atrial fibrillation
-LVEF 50-55%
-RBBB
-GERD
-Asthma
-Former tobacco use (remote, college)
-Recent elevated LFTs
-Recent IVORY, resolved preop
-S/P inguinal hernia repair
-Acute postop blood loss/Anemia (stable, without blood transfusion)
-Acute postop thrombocytopenia (stable without active bleed)
-Acute postop atelectasis
-Acute postop hypovolemia with subsequent hypervolemia
-Acute postop CHB S/P A/V paced postop
-Acute postop junctional/accelerated junctional rhythm - in nsr 12/19
Discussed patient care with: Nursing and Care Team
Subjective
Procedure
S/P Sternotomy/ Complex mitral valve reconstruction [triangular resection of P2 P3 with primary reapproximation, cleft closure between P1 and P2, 6 sets of [place] cords with 3 placed to the anterior leaflet and 3 placed to the posterior leaflet,
36 mm band annuloplasty, Free margin remodelling at AL commissure]/Surgical, open, left atrial maze [combination of cryo and RF ablation]/ Left atrial appendage exclusion [40 mm device], by Dr. Orozco, 12/16/24
-
Date of Service: December 20, 2024
Objective Data
-
Lab Results
12/20/24 03:58
12/20/24 03:58
PT 18.0 Sec (11.4-14.6) H 12/17/24 03:48
INR 1.44 12/17/24 03:48
APTT 30.0 Sec (23.4-35.0) 12/16/24 15:28
Vital Signs
Vital Signs
Temp Pulse Resp BP Pulse Ox
98.1 F 69 18 122/80 96
12/20/24 08:00 12/20/24 08:00 12/20/24 08:00 12/20/24 06:00 12/20/24 08:00
CT Intake/Output/Weight
12/19/24 12/20/24 12/20/24
18:59 06:59 18:59
Intake Total 189.9 / 360.3 170.4 / 360.3 254.2 / 254.2
Output Total 1025 / 1875 850 / 1875
Balance -835.1 / -1514.7 -679.6 / -1514.7 254.2 / 254.2
SaO2: 96
Physical Exam
-
General: Awake and AOx3
Cardiovascular: Regular rate & rhythm, No Murmurs and Rub
Respiratory: Decreased Breath Sounds
Sternum: Stable
Incision: Clean, Dry and Intact
Extremities: No Edema
Abdomen: soft, nontender, nondistended
Data Reviewed
-
Lab Results: Results Reviewed
Medications: Active Meds Reviewed
Chest X-Ray: Report Reviewed and Image Reviewed
ECG: Report Reviewed and Image Reviewed
[2024-12-20] MEDS: KCL 10 MEQ PO ×2 (09:07→19:39)
[2024-12-20] MEDS: LASIX 40 MG IV ×2 (09:07→16:25)
--- NOTE | 2024-12-20 09:50 | W.PN.CARDCBS ---
Addendum entered and electronically signed by Delia Johnson DO 12/20/24 10:02:
I saw and examined the patient.
The Health Program Manager's note was reviewed and I agree with the note.
Comment: Patient was seen and examined sitting out of bed to chair. Overall feeling well postop without dizziness or lightheadedness. No chest pain or pressure.
General: No acute distress, AAOX3
Neck: + cortis
Heart: Regular, positive S1/S2, no murmur or rub
Lungs: CTA b/l, negative wheezes/rales/rhonchi
Abd: Positive BS, NT/ND, neg rebound/rigidity/guarding
Ext: +1 edema
Plan:
-S/p mitral valve repair through traditional sternotomy, left atrial appendage exclusion 40 mm device and left atrial maze (combination of cryo and RF ablation) 12/16/2024
-Postprocedure KACY EF 55% with trace MR and mean gradient 3 mmHg
-slow wean of dobutamine, currently at 1.
-check echo once off dobutamine later this afternoon; discussed with CT surgery team
-remains in SR on review of tele overnight. continue to hold amio/BB
-hgb 10, plts 111K. continue asa. Will need eventual OAC for PAF prior to surgery when stable from CT standpoint
- Would continue diuresis and provide an additional dose of IV Lasix 40 mg this afternoon.
-encouraged OOB/IS
-d/w nursing, CT surgery
Original Note:
Today's Communication / Plan
-
continue post op care
OAC when ok per surgery
in SR
echo this afternoon once dobut off
Impression / Plan
-
PCP: Brian James
Card: [facility]
Cardiothoracic surgeon Dr. Jeff at [facility]
Impression:
Presented 12/09/2024 w/ RASCON, palpitation
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
s/p mitral valve repair through traditional sternotomy 12/16/2024, Dr. Orozco
Post op accelerated junctional rhythm
Atrial fibrillation with RVR
s/p left atrial maze (combination of cryo and RF ablation) 12/16/2024, Dr. Orozco
Left atrial appendage clip 40 mm device 12/16/2024, Dr. Orozco
Acute HFpEF, proBNP 4880
Abnormal LFTs, Possible acute cholecystitis on Abd ultrasound, but HIDA 12/11/2024 without obstruction
IVORY
Hyperkalemia
Hyponatremia
Severe PHTN
RBBB of unknown chronicity
Asthma
GERD
Stress echo 10/04/2024: Baseline echo EF 60 to 65%. Moderately dilated LA, mild dilated RA. Severe mitral regurgitation with prolapse of posterior leaflet. Moderate tricuspid regurgitation with PAP of 75 mmHg. 9 minutes on Ren protocol achieving
92% predicted max heart rate. No wall motion abnormalities appeared at stress. Severe mitral regurgitation post exercise
Echo 05/22/2024: EF 60-65%. No regional LV wall motion abnormalities. LVH. Grade 2 diastolic dysfunction. Severe left atrial dilation with left atrium volume index severely increased. Normal RV size and function. Moderate mitral regurgitation
with posterior leaflet moderately prolapsed.
Echo 12/11/2024: nl LV size, EF 60-65%, nl wall motion, mild cLVH, mildly dilated RV, sev MR due to prolapse of post MV leaflet, mod (54/30mmHg, HOLDEN 1.1cm2), mild TR, PAP 55-60 mmHg
Cardiac catheterization 12/13/2024: LAD: Normal. LAD: Normal. Left circumflex: Normal. Ramus: Normal. RCA: Normal. No obstructive coronary artery disease. Significantly elevated right and left-sided filling pressures with reduced cardiac output
and mildly elevated systemic vascular resistance with severe pulmonary hypertension. Cardiac Output : 3.54 L/min by Maricruz calculation. Cardiac Index : 1.88 L/min/m-2 by Maricruz calculation. Systemic vascular resistance: 1309 dsc^(-5). Pulmonary vascular
resistance: 6.4 genao unit. AO (s/d) : 93/69
LVEDP : 22; No significant gradient across the aortic valve to suggest aortic stenosis. Invasive transaortic mean gradient of 2.55, aortic valve area of 2.63 cm� using cardiac output of 3.53 at heart rate of 127 bpm
Plan:
-S/p mitral valve repair through traditional sternotomy, left atrial appendage exclusion 40 mm device and left atrial maze (combination of cryo and RF ablation) 12/16/2024
-Postprocedure KACY EF 55% with trace MR and mean gradient 3 mmHg
-slow wean of dobutamine, currently at 1.
-check echo once off dobut this afternoon
-remains in SR on review of tele overnight. continue to hold amio/BB
-hgb 10, plts 111K. continue asa. Will need eventual OAC for PAF prior to surgery when stable from CT standpoint
-diuresis. Cr stable at 0.8
-encouraged OOB/IS
-d/w nursing, CT surgery
HPI 12/09/2024: Patient is a 74-year-old male with past medical history significant for asthma, GERD, chronic mild elevation of LFTs and mitral valve regurgitation RASCON associated with exertional dizziness and palpitations. Patient reports around
gi of 2023 started noticing functional decline and reduced exercise tolerance. He was found to have moderate mitral regurgitation on echo in April 2024. He underwent stress echo in September 2024 which demonstrated severe mitral
regurgitation with moderate tricuspid regurgitation and severe pulmonary hypertension with PAP of 75 mmHg. Stress test did not show any acute ischemia. He did CT surgery Dr. Jeff at [facility] regarding discussion of mitral valve
surgery. He reported he wanted to wait until the fall and has not had a catheterization. Patient reports 2 weeks ago he developed significant GI illness with nausea and vomiting. Since that time he is felt poorly with poor appetite, abdominal
bloating, progressively worsening shortness of breath, exertional dizziness list/lightheadedness and palpitations. He purchased a smart watch who told him he was in atrial fibrillation and PCP started Toprol 25 mg and Eliquis within the last week.
Patient's symptoms have progressed and he was told to come to emergency room for evaluation. Patient's initial ECG is Afib with RVR. Labs with several abnormalities of unknown chronicity including Cre of 1.7, potassium 5.6, sodium 128 and AST/ALT
172/245, all labs are being evaluated without previous for comparison. Initial Troponin was normal at 0.025 and pro-BNP 4880. CXR read as small B/L pleural effusions.
Presented with dyspnea on exertion, palpitations, A-fib with rapid ventricular response, acute heart failure secondary to severe symptomatic mitral regurgitation with P2/P3 severe prolapse and evidence of torn cord and mild coaptation of the mitral
leaflets on KACY 12/12/2024 with overall preserved LV systolic function estimated 60%, mild to moderate aortic stenosis with trace AI and mild to moderate tricuspid regurgitation
-Cardiac catheterization as part of preoperative assessment found to have right dominant system with no obstructive coronary artery disease. There was no significant gradient across the aortic valve to suggest significant aortic stenosis. LVEDP 22
Progress Note - Leadership Program Internship
Subjective
Date of Service: December 20, 2024
reports some fatigue however slept better overnight
Objective
Labs:
12/20/24 03:58
12/20/24 03:58
Labs
Hgb 10.0 g/dL (13.0-18.0) L 12/20/24 03:58
Hct 29.8 % (39.0-52.0) L 12/20/24 03:58
Plt Count 111 10^3/uL (130-400) L D 12/20/24 03:58
PT 18.0 Sec (11.4-14.6) H 12/17/24 03:48
INR 1.44 12/17/24 03:48
APTT 30.0 Sec (23.4-35.0) 12/16/24 15:28
Sodium 132 mmol/L (135-145) L 12/20/24 03:58
Potassium 4.3 mmol/L (3.5-5.1) 12/20/24 03:58
BUN 27 mg/dl (9-20) H 12/20/24 03:58
Creatinine 0.8 mg/dL (0.7-1.3) 12/20/24 03:58
Glucose 93 mg/dl (70-99) 12/20/24 03:58
Vital Signs and I&O:
Vital Signs
Temp Pulse Resp BP Pulse Ox
98.1 F 69 18 122/80 96
12/20/24 08:00 12/20/24 08:00 12/20/24 08:00 12/20/24 06:00 12/20/24 09:17
Vital Signs
Temp Pulse Resp BP Pulse Ox
98.1 F 69 18 122/80 96
12/20/24 08:00 12/20/24 08:00 12/20/24 08:00 12/20/24 06:00 12/20/24 09:17
Intake & Output
12/18/24 12/19/24 12/20/24 12/21/24
07:59 07:59 07:59 07:59
Intake Total 1877.5 / 1903.8 894.9 / 919.1 334.0 / 588.2 254.2 / 254.2
Output Total 995 / 1075 1255 / 1255 1750 / 1750
Balance 882.5 / 828.8 -360.1 / -335.9 -1416.0 / -1161.8 254.2 / 254.2
Physical Exam
Physical Exam
GEN: No distress, awake, alert, oriented x3
HEENT: supple, anicteric, mmm, eomi
LUNGS: Few crackles B/L bases, no wheezes
CV: Reg, S1/S2, no murmur
ABD: soft, BS+, NT/ND
EXT: No cyanosis, clubbing. trace edema of B/L LE
NEURO: Gross non-focal
SKIN: Warm, pink, dry. No rash
--- NOTE | 2024-12-20 12:00 | PTCARENOTE ---
VSS , Denies pain, Ambulating, Assesment otherwise unchanged from prior.
--- NOTE | 2024-12-20 12:37 | CM ---
Reviewed chart. Met with Mr. Hickey to review discharge plans. He states he is feeling well and maybe able to go home soon. He states he has been ambulating in the hallway. Prior to admission he resides with his spouse in a three story home with
three steps to enter. His main bedroom/full bathroom are on the first floor. Prior to admission he was independent with ambulation and adls. He does not have any DME in the home. He has a prescription plan. Telephone call to check on his co-pay
for Eliquis 5 mg po bid. He is still in the deductible stage so his first script of Eliquis would be $$289.99. a month, once he mets his deductible his co-pay would be $116.11 until he get to his $2000.00 co-pay then it would be zero co-apy. He
states he has never uses the one month free coupon, so I gave him the Eliquis coupon to use. His spouse will be home to assist in his care if needed. We reviewed a home visit by the Transitional Care Nurse. He is agreeable to a home visit. Medical
work-up in progress. The discharge plan is to return home with his spouse and a home visit by the Transitional Care Nurse when medically stable.
[2024-12-20] MEDS: TYLENOL PO (15:29)
[2024-12-20] MEDS: NSS IV (15:31)
--- NOTE | 2024-12-20 15:42 | W.PN.INTV ---
Today's Communication / Plan
Recommendations
- Continue to wean dobutamine as tolerated
- Incentive spirometry, increase activity as tolerated
- Outpatient follow-up with pulmonary clinic
Assessment
-
Patient is a 74-year-old gentleman with history of asthma and severe mitral valve regurgitation who follows with [facility] cardiothoracic surgery service. Patient has been having worsening exercise intolerance shortness of breath over the last few
months. He presented to ED for further evaluation. Patient also was recently diagnosed with atrial fibrillation and had been on metoprolol and Eliquis. In the ED he was noted to have A-fib with rapid ventricular rate, hyponatremia, hyperkalemia,
acute renal failure as well as mild transaminitis. He was admitted to the hospital for further workup. Workup included echocardiogram followed by right and left heart catheterization which was suggestive of severe mitral valve regurgitation with
pulmonary hypertension. CT surgery service was consulted and patient was taken to the OR today for complex mitral valve repair. In addition patient had maze procedure performed as well. Postsurgery, he was admitted to cardiovascular ICU and
instructor programmable controllers service was consulted for further input.
S/p complex mitral valve repair POD #4
Titrate off pressors per protocol, currently on dobutamine @ 1. 86/65 Blood pressure
ECHO reviewed
Patient extubated 12/16, currently saturating well on RA
Chest x-ray unremarkable except for left basilar subsegmental atelectasis
Spirometry, 12/12/2024, FEV1 55% of predicted, FVC 64% of predicted. FEV1/FVC ratio decreased. Moderate obstructive disease. With decreased FVC, suspect there might be restriction also, recommend lung volumes and DLCO assessment with full
pulmonary function testing as outpatient.
Continue Symbicort, as needed DuoNeb. No wheezing on exam.
Aspiration precautions
Encouraged incentive spirometry, OOB/ambulation/early mobility
Advance diet as tolerated following extubation
GI prophylaxis: Protonix
Monitor critical I/O's
Creatinine improved to 0.8 today. Fluid balance, -306.4
Hb/platelets postoperatively reviewed, mild drift noted. Hemoglobin 10, platelet count up 211
Trend CBC for now
Can transfuse if indicated for Hb <7, plt <50 in surgical patients
DVT prophylaxis including SCDs
Off insulin drip now.
Other medical diagnoses:
- Severe Pulmonary HTN. PA 78/43, mPA 57. PCWP 38, PVR 6.4 genao, CO 3.54 and CI 1.88. Group II with severe MR and elevated PCWP. MAP of 84. Dobutamine infusing at 1.
- Acute on suspected chronic heart failure with preserved ejection fraction, related to severe MR.
- Severe mitral regurgitation, s/p mitral valve repair 12/16/2024
- Atrial fibrillation with rapid ventricular response, on metoprolol (currently on hold) and amiodarone (On Hold)
- Acute kidney injury with cardiorenal syndrome, improving. Creatinine 1.1 today
- Hyponatremia, likely related to volume overload. 133 this AM, monitor for now
- History of asthma. Takes Breo at home. Currently on Symbicort twice a day and as needed DuoNeb. No wheezing on exam. had 1 episode of coughing up house colored mucous plug 12/18 at night, no further episodes since.
- Gastroesophageal reflux disease. On pantoprazole
- Pulmonary nodule. 2 mm. Out patient follow up with Pulmonary clinic, information added to discharge section.
Critical Care time 42 mins -- The patient is admitted for acute critical illness for the treatment of vital organ failure and/or prevention of further life-threatening conditions. Total care includes time spent in review of history, physical exam,
medications, hemodynamic/ventilator parameters, laboratory data, imaging and discussion with house staff, pharmacy, respiratory therapy, sales team member, and nursing.
Data:
Stress echo 10/04/2024: Baseline echo EF 60 to 65%. Moderately dilated LA, mild dilated RA. Severe mitral regurgitation with prolapse of posterior leaflet. Moderate tricuspid regurgitation with PAP of 75 mmHg. 9 minutes on Ren protocol achieving
92% predicted max heart rate. No wall motion abnormalities appeared at stress. Severe mitral regurgitation post exercise
Echo 05/22/2024: EF 60-65%. No regional LV wall motion abnormalities. LVH. Grade 2 diastolic dysfunction. Severe left atrial dilation with left atrium volume index severely increased. Normal RV size and function. Moderate mitral regurgitation
with posterior leaflet moderately prolapsed.
Echo 12/11/2024: nl LV size, EF 60-65%, nl wall motion, mild cLVH, mildly dilated RV, sev MR due to prolapse of post MV leaflet, mod (54/30mmHg, HOLDEN 1.1cm2), mild TR, PAP 55-60 mmHg
Cardiac catheterization 12/13/2024: LAD: Normal. LAD: Normal. Left circumflex: Normal. Ramus: Normal. RCA: Normal. No obstructive coronary artery disease. Significantly elevated right and left-sided filling pressures with reduced cardiac output
and mildly elevated systemic vascular resistance with severe pulmonary hypertension. Cardiac Output : 3.54 L/min by Maricruz calculation. Cardiac Index : 1.88 L/min/m-2 by Maricruz calculation. Systemic vascular resistance: 1309 dsc^(-5). Pulmonary vascular
resistance: 6.4 genao unit. AO (s/d) : 93/69
LVEDP : 22; No significant gradient across the aortic valve to suggest aortic stenosis. Invasive transaortic mean gradient of 2.55, aortic valve area of 2.63 cm� using cardiac output of 3.53 at heart rate of 127 bpm
Subjective Dataa
Subjective Data
Date of Service:
Date of Service: December 20, 2024
Subjective:
Patient comfortably sitting in bed, in no acute distress.
Review of Systems
Cardiopulmonary: Edema
Genitourinary: Other (No other new symptoms reported)
Objective Data
Data Reviewed
Vital Signs / I&O / Oxygen:
Vital Signs
Temp Pulse Resp BP Pulse Ox
98.2 F 72 18 86/65 96
12/20/24 13:01 12/20/24 13:00 12/20/24 13:01 12/20/24 12:47 12/20/24 13:01
Intake and Output
12/19/24 12/20/24 12/21/24
06:59 06:59 06:59
Intake Total 868.6 / 894.9 360.3 / 360.3 254.2 / 254.2
Output Total 1130 / 1255 1875 / 1875 275 / 275
Balance -261.4 / -360.1 -1514.7 / -1514.7 -20.8 / -20.8
SaO2 [SIMV] 100
SaO2 [P-SIMV] 92
SaO2 96
Nasal Cannula flow liters per 2
minute
Physical Exam
General: Comfortable
HEENT: Normocephalic
Cardiovascular: S1-S2 and Peripheral Edema
Respiratory: Clear
GI: Non Distended
Neurology: Awake, Alert and Oriented
Skin: Warm
Labs/Micro/Reports
Lab Data
12/20/24 03:58
12/20/24 03:58
--- NOTE | 2024-12-20 16:43 | PTCARENOTE ---
Ambulating in hallway w/o assistance, denies pain. RT IJ cordis removed, pt tolerated and hemostasis achieved /wo issue. VSS.
[2024-12-20] MEDS: ELIQUIS 5 MG PO (19:39)
--- NOTE | 2024-12-20 20:30 | PTCARENOTE ---
Assumed care of pt from dayshift RN. Walking rounds completed. Pt is AAOx3. TO. Appropriate. Stand-by assist w/ ambulation. SR on the tele monitor. HR 70s. BP stable. B/L radial pulses palpable. B/L DP pulses weak on palpation. Trace B/L LE edema.
Pt on RA. POX 97%. Lung sounds diminished in B/L bases. Deep breathing and IS encouraged. Occasional cough. Abdomen soft/nontender. +BS. Pt voiding w/o issue. No BM. All surgical sites stable. PIV x2 intact. See worklist for full nursing assessment
and interventions. Call riddle within reach.
[2024-12-21] VITALS (16 sets, daily range): BP systolic 96–133; BP diastolic 62–80; PULSE 74; O2SAT 97; BMI 23.5
--- NOTE | 2024-12-21 00:09 | PTCARENOTE ---
No change in assessment. Pt is SR on the tele monitor. HR 60-70s. BP stable. 97% on RA. Afebrile. No c/o pain at this time. Call riddle within reach.
[2024-12-21 04:19] LABS: Blood Urea Nitrogen 24 mg/dl (9-20); Carbon Dioxide 24 mmol/L (22-30); Chloride 104 mmol/L (98-107); Estimated Creatinine Clearance 98 ml/min; Glucose 93 mg/dl (70-99); Magnesium 2.1 mg/dl (1.6-2.3); Potassium 4.3 mmol/L (3.5-5.1); Sodium 130 mmol/L (135-145); eGFR > 60.00
[2024-12-21 04:24] LABS: Mean Corp Hgb Conc. 34.5 g/dL (33.0-37.0); Mean Corpuscular Hgb 31.1 pg (27.0-31.0); Mean Corpuscular Volume 90.1 fL (80.0-94.0); Mean Platelet Volume 10.4 fL (7.4-10.4); Platelet Count 142 10^3/uL (130-400); Red Blood Cell Count 3.22 10^6/uL (4.70-6.10); Red Cell Dist. Width 15.3 % (11.5-14.5); White Blood Cell Count 8.5 10^3/uL (4.8-10.8)
--- NOTE | 2024-12-21 04:25 | PTCARENOTE ---
No acute changes in assessment. Pt is SR on the tele monitor. HR 60-70s. BP stable. POX 96% on RA. All surgical sites stable. Pt voiding w/o issue. Labs drawn and sent. Denies pain at this time. Call riddle within reach.
--- NOTE | 2024-12-21 05:15 | W.PN.CT ---
Addendum entered and electronically signed by Janak Darden MD 12/21/24 09:53:
I saw and examined the patient.
The PA's note was reviewed and I agree with the note.
Comment:
Doing well. Start Eliquis today. Diuresis. Home tomorrow.
Original Note:
Today's Communication / Plan
-
Plan:
-No major issues overnight. Hemodynamically and neurologically intact
-Weaned off Dobutamine gtt yesterday 12/20
-Resuming low dose Toprol XL 12.5 mg QDaily
-Eliquis resumed last night 12/20
-Encourage use of IS
-OOB into chair/Ambulate
-Home Tomorrow (wants to go home tomorrow)
Assessment / Plan
-
Assessment:
-S/P Sternotomy/ Complex mitral valve reconstruction [triangular resection of P2 P3 with primary reapproximation, cleft closure between P1 and P2, 6 sets of [place]-Dominic cords with 3 placed to the anterior leaflet and 3 placed to the posterior leaflet,
36 mm band annuloplasty, Free margin remodelling at AL commissure]/Surgical, open, left atrial maze [combination of cryo and RF ablation]/ Left atrial appendage exclusion [40 mm device], by Dr. Orozco, 12/16/24, pod#5
-Postop KACY: Following surgery his EF remained the same at 55% with no new regional wall motion abnormalities. His RV appeared to be much more snappy with its contractions. After coming off cardiopulmonary bypass, there was none to trace residual
mitral valve insufficiency, there wasno systolic anterior motion the leaflets, and the mean gradient of 3 was across the valve. His tricuspid valve had a mild to moderate degree of insufficiency with a slightly dilated annulus at beginning the case.
After repairing his mitral valve, there was essentially no tricuspid valve deficiency and so this valve was left alone. His left atrial appendage was clipped with a 40 mm device flush to the base.
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
-Severe pulmonary hypertension
-Myxomatous mitral valve disease, type 2 pathology with bileaflet prolapse
-Severe mitral valve insufficiency
-Mild aortic valve stenosis
-Mild RV dysfunction
-New onset atrial fibrillation
-LVEF 50-55%
-RBBB
-GERD
-Asthma
-Former tobacco use (remote, college)
-Recent elevated LFTs
-Recent IVORY, resolved preop
-S/P inguinal hernia repair
-Acute postop blood loss/Anemia (stable, without blood transfusion)
-Acute postop thrombocytopenia (stable without active bleed)
-Acute postop atelectasis
-Acute postop hypovolemia with subsequent hypervolemia
-Acute postop CHB S/P A/V paced postop
-Acute postop junctional/accelerated junctional rhythm - in nsr 12/19
Discussed patient care with: Cardiology, Nursing, Respiratory Therapy, Pharmacy and Care Team
Subjective
Procedure
S/P Sternotomy/ Complex mitral valve reconstruction [triangular resection of P2 P3 with primary reapproximation, cleft closure between P1 and P2, 6 sets of [place]-Dominic cords with 3 placed to the anterior leaflet and 3 placed to the posterior leaflet,
36 mm band annuloplasty, Free margin remodelling at AL commissure]/Surgical, open, left atrial maze [combination of cryo and RF ablation]/ Left atrial appendage exclusion [40 mm device], by Dr. Orozoc, 12/16/24
-
Date of Service: December 21, 2024
C/o mild incisional pain, otherwise feels well
Objective Data
-
Lab Results
12/21/24 04:11
12/21/24 03:41
PT 18.0 Sec (11.4-14.6) H 12/17/24 03:48
INR 1.44 12/17/24 03:48
APTT 30.0 Sec (23.4-35.0) 12/16/24 15:28
Vital Signs
Vital Signs
Temp Pulse Resp BP Pulse Ox
97.9 F 67 18 116/74 96
12/21/24 04:00 12/21/24 04:45 12/21/24 04:00 12/21/24 04:00 12/21/24 04:00
CT Intake/Output/Weight
12/20/24 12/20/24 12/21/24
06:59 18:59 06:59
Intake Total 170.4 / 360.3 854.2 / 854.2
Output Total 850 / 1875 2675 / 3125 450 / 3125
Balance -679.6 / -1514.7 -1820.8 / -2270.8 -450 / -2270.8
SaO2: 96 (RA)
Physical Exam
-
General: Awake, Oriented and AOx3
Cardiovascular: Regular rate & rhythm, No Murmurs and No Gallop
Respiratory: Decreased Breath Sounds
Sternum: Stable
Incision: Clean, Dry, Intact and Dressing Intact
Extremities: Other (+trace edema)
Data Reviewed
-
Lab Results: Results Reviewed
Medications: Active Meds Reviewed
Chest X-Ray: Report Reviewed and Image Reviewed
ECG: Report Reviewed and Image Reviewed
[2024-12-21] MEDS: CALCIUM GLUCONATE 130 MG IV (05:59)
[2024-12-21] MEDS: TYLENOL 1000 MG PO ×3 (05:59→20:47)
[2024-12-21] MEDS: SYMBICORT 80/4.5 MCG INHALER 2 PUFF INH ×2 (08:20→17:12)
[2024-12-21] MEDS: ELIQUIS 5 MG PO ×2 (08:53→20:47)
[2024-12-21] MEDS: PROTONIX 40 MG PO (08:53)
[2024-12-21] MEDS: KCL 10 MEQ PO ×2 (08:54→20:47)
[2024-12-21] MEDS: THERAGRAN 1 TABLET PO (08:54)
[2024-12-21] MEDS: LASIX 40 MG IV ×2 (08:54→16:50)
[2024-12-21] MEDS: LOW STRENGTH ASPIRIN 81 MG PO (08:54)
[2024-12-21] MEDS: VITAMIN D3 (cholecalciferol) 25 MCG PO (08:54)
[2024-12-21] MEDS: SENOKOT-S 1 TABLET PO ×2 (08:54→20:47)
[2024-12-21] MEDS: NEURONTIN 100 MG PO ×3 (08:54→20:47)
[2024-12-21] MEDS: TOPROL XL 12.5 MG PO (08:55)
--- NOTE | 2024-12-21 09:00 | PTCARENOTE ---
Received patient for 7a-7p shift. Pt AAOx3, without complaints. VSS, NSR on escort car driver. Patient denies pain at this time. OOB in chair, ambulatory in room without assistance. Medications administered as ordered. Pt tolerating IS, encouraged.
Tolerating PO intake. Instructed patient on fall precautions, call riddle in reach, patient verbalized understanding.
--- NOTE | 2024-12-21 11:21 | W.PN.INTV ---
Today's Communication / Plan
Recommendations
- Continue Lasix as tolerated, follow-up electrolytes
- Outpatient follow-up with pulmonary clinic, information added to the chart
- Associate Medical Director service will sign off once patient transferred out of CVICU
Assessment
-
Patient is a 74-year-old gentleman with history of asthma and severe mitral valve regurgitation who follows with [facility]othor[facility] surgery service. Patient has been having worsening exercise intolerance shortness of breath over the last few
months. He presented to ED for further evaluation. Patient also was recently diagnosed with atrial fibrillation and had been on metoprolol and Eliquis. In the ED he was noted to have A-fib with rapid ventricular rate, hyponatremia, hyperkalemia,
acute renal failure as well as mild transaminitis. He was admitted to the hospital for further workup. Workup included echocardiogram followed by right and left heart catheterization which was suggestive of severe mitral valve regurgitation with
pulmonary hypertension. CT surgery service was consulted and patient was taken to the OR today for complex mitral valve repair. In addition patient had maze procedure performed as well. Postsurgery, he was admitted to cardiovascular ICU and
branding machine operator service was consulted for further input.
S/p complex mitral valve repair POD #5
Titrate off pressors per protocol, currently off dobutamine. MAP 84
ECHO reviewed
Patient extubated 12/16, currently saturating well on RA
Chest x-ray unremarkable except for left basilar subsegmental atelectasis
Spirometry, 12/12/2024, FEV1 55% of predicted, FVC 64% of predicted. FEV1/FVC ratio decreased. Moderate obstructive disease. With decreased FVC, suspect there might be restriction also, recommend lung volumes and DLCO assessment with full
pulmonary function testing as outpatient.
Continue Symbicort, as needed DuoNeb. No wheezing on exam.
Aspiration precautions
Encouraged incentive spirometry, OOB/ambulation/early mobility
Advance diet as tolerated following extubation
GI prophylaxis: Protonix
Monitor critical I/O's
Creatinine improved to 0.7 today. Fluid balance, -3.3 Ltr. Continue Lasix 40 mg IV twice daily as ordered, diuresing well, still has 2+ pitting edema bilaterally
Hb/platelets postoperatively reviewed, mild drift noted.
Trend CBC for now
Can transfuse if indicated for Hb <7, plt <50 in surgical patients
DVT prophylaxis including SCDs
Off insulin drip now.
Other medical diagnoses:
- Severe Pulmonary HTN. PA 78/43, mPA 57. PCWP 38, PVR 6.4 genao, CO 3.54 and CI 1.88. Group II with severe MR and elevated PCWP. MAP of 84. Off dobutamine now. Saturating well on room air.
- Acute on suspected chronic heart failure with preserved ejection fraction, related to severe MR. Lasix 40 mg twice daily started per surgery service, continue diuresis as tolerated.
- Severe mitral regurgitation, s/p mitral valve repair 12/16/2024
- Atrial fibrillation with rapid ventricular response, metoprolol resumed and amiodarone continues to be on hold.
- Acute kidney injury with cardiorenal syndrome, improving. Creatinine 0.7 today
- Hyponatremia, likely related to volume overload. 133 this AM, monitor for now
- History of asthma. Takes Breo at home. Currently on Symbicort twice a day and as needed DuoNeb. No wheezing on exam. had 1 episode of coughing up house colored mucous plug 12/18 at night, no further episodes since.
- Gastroesophageal reflux disease. On pantoprazole
- Pulmonary nodule. 2 mm. Out patient follow up with Pulmonary clinic, information added to discharge section.
Critical Care time 38 mins -- The patient is admitted for acute critical illness for the treatment of vital organ failure and/or prevention of further life-threatening conditions. Total care includes time spent in review of history, physical exam,
medications, hemodynamic/ventilator parameters, laboratory data, imaging and discussion with house staff, pharmacy, respiratory therapy, field merchandiser, and nursing.
Data:
Stress echo 10/04/2024: Baseline echo EF 60 to 65%. Moderately dilated LA, mild dilated RA. Severe mitral regurgitation with prolapse of posterior leaflet. Moderate tricuspid regurgitation with PAP of 75 mmHg. 9 minutes on Ren protocol achieving
92% predicted max heart rate. No wall motion abnormalities appeared at stress. Severe mitral regurgitation post exercise
Echo 05/22/2024: EF 60-65%. No regional LV wall motion abnormalities. LVH. Grade 2 diastolic dysfunction. Severe left atrial dilation with left atrium volume index severely increased. Normal RV size and function. Moderate mitral regurgitation
with posterior leaflet moderately prolapsed.
Echo 12/11/2024: nl LV size, EF 60-65%, nl wall motion, mild cLVH, mildly dilated RV, sev MR due to prolapse of post MV leaflet, mod (54/30mmHg, HOLDEN 1.1cm2), mild TR, PAP 55-60 mmHg
Cardiac catheterization 12/13/2024: LAD: Normal. LAD: Normal. Left circumflex: Normal. Ramus: Normal. RCA: Normal. No obstructive coronary artery disease. Significantly elevated right and left-sided filling pressures with reduced cardiac output
and mildly elevated systemic vascular resistance with severe pulmonary hypertension. Cardiac Output : 3.54 L/min by Maricruz calculation. Cardiac Index : 1.88 L/min/m-2 by Maricruz calculation. Systemic vascular resistance: 1309 dsc^(-5). Pulmonary vascular
resistance: 6.4 genao unit. AO (s/d) : 93/69
LVEDP : 22; No significant gradient across the aortic valve to suggest aortic stenosis. Invasive transaortic mean gradient of 2.55, aortic valve area of 2.63 cm� using cardiac output of 3.53 at heart rate of 127 bpm
Subjective Dataa
Subjective Data
Date of Service:
Date of Service: December 21, 2024
Subjective:
Patient comfortably sitting in bed in no acute distress.
Review of Systems
Genitourinary: Other (All 14 systems reviewed and negative except as stated above in the history of present illness.)
Objective Data
Data Reviewed
Vital Signs / I&O / Oxygen:
Vital Signs
Temp Pulse Resp BP Pulse Ox
98.3 F 75 20 121/70 97
12/21/24 08:50 12/21/24 10:45 12/21/24 08:50 12/21/24 10:42 12/21/24 08:50
Intake and Output
12/20/24 12/21/24 12/22/24
06:59 06:59 06:59
Intake Total 360.3 / 360.3 854.2 / 854.2 240 / 240
Output Total 1875 / 1875 3350 / 3350 840 / 840
Balance -1514.7 / -1514.7 -2495.8 / -2495.8 -600 / -600
SaO2 [SIMV] 100
SaO2 [P-SIMV] 92
SaO2 97
Nasal Cannula flow liters per 2
minute
Physical Exam
General: Comfortable
HEENT: Normocephalic
Cardiovascular: S1-S2 and Peripheral Edema
Respiratory: Clear
GI: Non Distended
Neurology: Awake, Alert and Oriented
Skin: Warm
Labs/Micro/Reports
Lab Data
12/21/24 04:11
12/21/24 03:41
--- NOTE | 2024-12-21 12:46 | PTCARENOTE ---
NSR, VSS. Patient denies pain at this time. Patient voiding sufficiently. Tolerating PO intake. Patient ambulated in malone and did stairs with cardiac rehab. Will continue to monitor.
--- NOTE | 2024-12-21 13:24 | W.PN.CARDCBS ---
Addendum entered and electronically signed by Fracisco Aguilar DO 12/21/24 13:47:
I saw and examined the patient.
The Threshing Operator's note was reviewed and I agree with the note.
Comment:
Plan:
Stable cardiovascular status. Continue postop care
Likely transition from IV Lasix to oral Lasix, could consider Lasix 40 mg daily.
He is back on Eliquis with stable hemoglobin
Continue postop care
Outpatient follow-up with his electric refrigerator preparer.
Original Note:
Today's Communication / Plan
-
Continue diuresis with IV Lasix, likely will need oral Lasix at discharge
Back on Eliquis with stable hemoglobin
Toprol resumed today
Anticipate discharge within next 24 hours
Outpatient cardiology follow-up has been arranged
Impression / Plan
-
PCP: Brian James
Card: Dr. Rahman [facility]
Cardiothoracic surgeon Dr. Jeff at [facility]
Impression:
Presented 12/09/2024 w/ RASCON, palpitation
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
s/p mitral valve repair through traditional sternotomy 12/16/2024, Dr. Orozco
Post op accelerated junctional rhythm
Atrial fibrillation with RVR
s/p left atrial maze (combination of cryo and RF ablation) 12/16/2024, Dr. Orozco
Left atrial appendage clip 40 mm device 12/16/2024, Dr. Orozco
Acute HFpEF, proBNP 4880
Abnormal LFTs, Possible acute cholecystitis on Abd ultrasound, but HIDA 12/11/2024 without obstruction
IVORY
Hyperkalemia
Hyponatremia
Severe PHTN
RBBB of unknown chronicity
Asthma
GERD
Stress echo 10/04/2024: Baseline echo EF 60 to 65%. Moderately dilated LA, mild dilated RA. Severe mitral regurgitation with prolapse of posterior leaflet. Moderate tricuspid regurgitation with PAP of 75 mmHg. 9 minutes on Ren protocol achieving
92% predicted max heart rate. No wall motion abnormalities appeared at stress. Severe mitral regurgitation post exercise
Echo 05/22/2024: EF 60-65%. No regional LV wall motion abnormalities. LVH. Grade 2 diastolic dysfunction. Severe left atrial dilation with left atrium volume index severely increased. Normal RV size and function. Moderate mitral regurgitation
with posterior leaflet moderately prolapsed.
Echo 12/11/2024: nl LV size, EF 60-65%, nl wall motion, mild cLVH, mildly dilated RV, sev MR due to prolapse of post MV leaflet, mod (54/30mmHg, HOLDEN 1.1cm2), mild TR, PAP 55-60 mmHg
Echo 12/20/2024 EF 55 to 60%. Dilated right ventricle with low normal systolic function. Status post MV repair with mean gradient 4 mmHg. Moderate to severe TR with PAP 25 to 30 mmHg.
Cardiac catheterization 12/13/2024: LAD: Normal. LAD: Normal. Left circumflex: Normal. Ramus: Normal. RCA: Normal. No obstructive coronary artery disease. Significantly elevated right and left-sided filling pressures with reduced cardiac output
and mildly elevated systemic vascular resistance with severe pulmonary hypertension. Cardiac Output : 3.54 L/min by Maricruz calculation. Cardiac Index : 1.88 L/min/m-2 by Maricruz calculation. Systemic vascular resistance: 1309 dsc^(-5). Pulmonary vascular
resistance: 6.4 genao unit. AO (s/d) : 93/69
LVEDP : 22; No significant gradient across the aortic valve to suggest aortic stenosis. Invasive transaortic mean gradient of 2.55, aortic valve area of 2.63 cm� using cardiac output of 3.53 at heart rate of 127 bpm
Plan:
-S/p mitral valve repair through traditional sternotomy, left atrial appendage exclusion 40 mm device and left atrial maze (combination of cryo and RF ablation) 12/16/2024
-Postprocedure KACY EF 55% with trace MR and mean gradient 3 mmHg
-Off all drips, dobutamine weaned 12/20/2022
- Patient with bilateral lower extremity edema and evidence of volume overload still on examination. Ongoing diuresis with Lasix 40 mg IV twice daily. Cr stable at 0. 7, potassium 4.3. Patient will likely need oral Lasix at discharge.
-Review per telemetry maintaining sinus rhythm. Continue low-dose Toprol (resumed 12/21/2024).
-Eliquis resumed 12/20/2024 in the evening. Hemoglobin stable at 10.0, platelets 1 42K
-Echo 12/20/2024 EF 55 to 60%. Dilated right ventricle with low normal systolic function. Status post MV repair with mean gradient 4 mmHg. Moderate to severe TR with PAP 25 to 30 mmHg.
-encouraged OOB/IS, ambulation around room
-d/w nursing, CT surgery
-Anticipate discharge within the next 24 hours
- Outpatient cardiology follow-up has been arranged
HPI 12/09/2024: Patient is a 74-year-old male with past medical history significant for asthma, GERD, chronic mild elevation of LFTs and mitral valve regurgitation RASCON associated with exertional dizziness and palpitations. Patient reports around
of 2023 started noticing functional decline and reduced exercise tolerance. He was found to have moderate mitral regurgitation on echo in April 2024. He underwent stress echo in September 2024 which demonstrated severe mitral
regurgitation with moderate tricuspid regurgitation and severe pulmonary hypertension with PAP of 75 mmHg. Stress test did not show any acute ischemia. He did CT surgery Dr. Jeff at [facility] regarding discussion of mitral valve
surgery. He reported he wanted to wait until the fall and has not had a catheterization. Patient reports 2 weeks ago he developed significant GI illness with nausea and vomiting. Since that time he is felt poorly with poor appetite, abdominal
bloating, progressively worsening shortness of breath, exertional dizziness list/lightheadedness and palpitations. He purchased a smart watch who told him he was in atrial fibrillation and PCP started Toprol 25 mg and Eliquis within the last week.
Patient's symptoms have progressed and he was told to come to emergency room for evaluation. Patient's initial ECG is Afib with RVR. Labs with several abnormalities of unknown chronicity including Cre of 1.7, potassium 5.6, sodium 128 and AST/ALT
172/245, all labs are being evaluated without previous for comparison. Initial Troponin was normal at 0.025 and pro-BNP 4880. CXR read as small B/L pleural effusions.
Presented with dyspnea on exertion, palpitations, A-fib with rapid ventricular response, acute heart failure secondary to severe symptomatic mitral regurgitation with P2/P3 severe prolapse and evidence of torn cord and mild coaptation of the mitral
leaflets on KACY 12/12/2024 with overall preserved LV systolic function estimated 60%, mild to moderate aortic stenosis with trace AI and mild to moderate tricuspid regurgitation
-Cardiac catheterization as part of preoperative assessment found to have right dominant system with no obstructive coronary artery disease. There was no significant gradient across the aortic valve to suggest significant aortic stenosis. LVEDP 22
Progress Note - Dehydrogenation Converter Helper
Subjective
Date of Service: December 21, 2024
Objective
Labs:
12/21/24 04:11
12/21/24 03:41
Labs
Hgb 10.0 g/dL (13.0-18.0) L 12/21/24 04:11
Hct 29.0 % (39.0-52.0) L 12/21/24 04:11
Plt Count 142 10^3/uL (130-400) D 12/21/24 04:11
PT 18.0 Sec (11.4-14.6) H 12/17/24 03:48
INR 1.44 12/17/24 03:48
APTT 30.0 Sec (23.4-35.0) 12/16/24 15:28
Sodium 130 mmol/L (135-145) L 12/21/24 03:41
Potassium 4.3 mmol/L (3.5-5.1) 12/21/24 03:41
BUN 24 mg/dl (9-20) H 12/21/24 03:41
Creatinine 0.7 mg/dL (0.7-1.3) 12/21/24 03:41
Glucose 93 mg/dl (70-99) 12/21/24 03:41
Vital Signs and I&O:
Vital Signs
Temp Pulse Resp BP Pulse Ox
98.3 F 73 18 121/70 98
12/21/24 12:42 12/21/24 12:42 12/21/24 12:42 12/21/24 10:42 12/21/24 12:42
Vital Signs
Temp Pulse Resp BP Pulse Ox
98.3 F 73 18 121/70 98
12/21/24 12:42 12/21/24 12:42 12/21/24 12:42 12/21/24 10:42 12/21/24 12:42
Intake & Output
12/19/24 12/20/24 12/21/24 12/22/24
06:59 06:59 06:59 06:59
Intake Total 868.6 / 894.9 360.3 / 360.3 854.2 / 854.2 240 / 240
Output Total 1130 / 1255 1875 / 1875 3350 / 3350 1540 / 1540
Balance -261.4 / -360.1 -1514.7 / -1514.7 -2495.8 / -2495.8 -1300 / -1300
Physical Exam
Physical Exam
GEN: No distress, awake, alert, oriented x3, sitting in chair
HEENT: supple, anicteric, mmm,
LUNGS: Mildly decreased breath sounds at bilateral bases, greater than right, otherwise CTA, no wheezes
CV: Reg, S1/S2, no murmur
ABD: soft, BS+, NT/ND
EXT: +1 bilateral lower extremity edema, no clubbing or cyanosis
NEURO: Gross non-focal
SKIN: Warm, pink, dry. No rash
--- NOTE | 2024-12-21 15:04 | PTCARENOTE ---
Patient ambulatory in malone with , vss, NSR on monitoring tech. Patient denies pain at this time. Will continue to monitor.
[2024-12-21] MEDS: NSS IV (16:51)
--- NOTE | 2024-12-21 17:34 | PTCARENOTE ---
Patient showered without issues. All dressings removed. Placed back on monitor. VSS, NSR with 1st deg HB on sorter lumber straightener. Patient denies pain at this time. Medications administered as ordered. Will continue to monitor.
--- NOTE | 2024-12-21 20:30 | PTCARENOTE ---
assumed care of pt from previous RN. pt A&Ox4, resting in bed at time of assessment. SR w/ 1st degree AVB on tele-monitor. POX 96% on RA. abd s/n, +BS. voiding clear, yellow urine. all surgical sites stable, CDI. PIV intact. see worklist for
complete nursing assessment, interventions, VS, and I&Os.
[2024-12-22 00:20] VITALS: BP 107/75
--- NOTE | 2024-12-22 00:30 | PTCARENOTE ---
assessment remains unchanged. VSS.
[2024-12-22 04:42] VITALS: BP 119/78
[2024-12-22] MEDS: TYLENOL 1000 MG PO (04:42)
--- NOTE | 2024-12-22 04:46 | W.PN.CT ---
Addendum entered and electronically signed by Janak Darden MD 12/22/24 09:19:
I saw and examined the patient.
The PA's note was reviewed and I agree with the note.
Comment:
D/C home today
Original Note:
Today's Communication / Plan
-
Plan:
-No major issues overnight. Hemodynamically and neurologically intact
-Weaned off Dobutamine gtt on 12/20
-Tolerating resumption of low dose Toprol XL 12.5 mg QDaily
-Will transition IV Lasix to PO
-Hyponatremia is resolving, 133, was 130 yesterday
-Eliquis resumed
-Had repeat echo on 12/20 which showed an intact MV repair, trace MR, mod-severe TR, EF 55-60%
-Encourage use of IS
-OOB into chair/Ambulate
-Home today
Assessment / Plan
-
Assessment:
-S/P Sternotomy/ Complex mitral valve reconstruction [triangular resection of P2 P3 with primary reapproximation, cleft closure between P1 and P2, 6 sets of Lincoln-Dominic cords with 3 placed to the anterior leaflet and 3 placed to the posterior leaflet,
36 mm band annuloplasty, Free margin remodelling at AL commissure]/Surgical, open, left atrial maze [combination of cryo and RF ablation]/ Left atrial appendage exclusion [40 mm device], by Dr. Orozco, 12/16/24, pod#6
-Postop KACY: Following surgery his EF remained the same at 55% with no new regional wall motion abnormalities. His RV appeared to be much more snappy with its contractions. After coming off cardiopulmonary bypass, there was none to trace residual
mitral valve insufficiency, there wasno systolic anterior motion the leaflets, and the mean gradient of 3 was across the valve. His tricuspid valve had a mild to moderate degree of insufficiency with a slightly dilated annulus at beginning the case.
After repairing his mitral valve, there was essentially no tricuspid valve deficiency and so this valve was left alone. His left atrial appendage was clipped with a 40 mm device flush to the base.
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
-Severe pulmonary hypertension
-Myxomatous mitral valve disease, type 2 pathology with bileaflet prolapse
-Severe mitral valve insufficiency
-Mild aortic valve stenosis
-Mild RV dysfunction
-New onset atrial fibrillation
-LVEF 50-55%
-RBBB
-GERD
-Asthma
-Former tobacco use (remote, college)
-Recent elevated LFTs
-Recent IVORY, resolved preop
-S/P inguinal hernia repair
-Acute postop blood loss/Anemia (stable, without blood transfusion)
-Acute postop thrombocytopenia (stable without active bleed)
-Acute postop atelectasis
-Acute postop hypovolemia with subsequent hypervolemia
-Acute postop CHB S/P A/V paced postop
-Acute postop junctional/accelerated junctional rhythm - in nsr 12/19
Discussed patient care with: Cardiology, Nursing, Respiratory Therapy, Pharmacy, Care Team and Other
Subjective
Procedure
S/P Sternotomy/ Complex mitral valve reconstruction [triangular resection of P2 P3 with primary reapproximation, cleft closure between P1 and P2, 6 sets of Lincoln-Dominic cords with 3 placed to the anterior leaflet and 3 placed to the posterior leaflet,
36 mm band annuloplasty, Free margin remodelling at AL commissure]/Surgical, open, left atrial maze [combination of cryo and RF ablation]/ Left atrial appendage exclusion [40 mm device], by Dr. Orozco, 12/16/24
-
Date of Service: December 22, 2024
C/O mild incisional pain, otherwise feels well
Objective Data
-
Lab Results
12/21/24 04:11
PT 18.0 Sec (11.4-14.6) H 12/17/24 03:48
INR 1.44 12/17/24 03:48
APTT 30.0 Sec (23.4-35.0) 12/16/24 15:28
Vital Signs
Vital Signs
Temp Pulse Resp BP Pulse Ox
97.5 F 70 12 107/75 97
12/22/24 00:31 12/22/24 02:00 12/22/24 00:31 12/22/24 00:20 12/22/24 00:31
CT Intake/Output/Weight
12/21/24 12/21/24 12/22/24
06:59 18:59 06:59
Intake Total 480 / 480
Output Total 675 / 3350 1940 / 3090 1150 / 3090
Balance -675 / -2495.8 -1460 / -2610 -1150 / -2610
SaO2: 97 (RA)
Physical Exam
-
General: Awake, Oriented and AOx3
Cardiovascular: Regular rate & rhythm, No Murmurs, No Rub and No Gallop
Respiratory: Decreased Breath Sounds (at bases, otherwise clear)
Sternum: Stable
Incision: Clean, Dry, Intact and Dressing Intact
Extremities: Other (+trace edema)
Data Reviewed
-
Lab Results: Results Reviewed
Medications: Active Meds Reviewed
Chest X-Ray: Report Reviewed and Image Reviewed
ECG: Report Reviewed and Image Reviewed
--- NOTE | 2024-12-22 04:50 | PTCARENOTE ---
no acute changes. VSS. AM labs collected and sent.
[2024-12-22 05:31] LABS: Blood Urea Nitrogen 22 mg/dl (9-20); Calcium 8.8 mg/dl (8.4-10.2); Carbon Dioxide 28 mmol/L (22-30); Chloride 103 mmol/L (98-107); Estimated Creatinine Clearance 86 ml/min; Glucose 91 mg/dl (70-99); Magnesium 1.9 mg/dl (1.6-2.3); Potassium 4.4 mmol/L (3.5-5.1); Sodium 133 mmol/L (135-145); eGFR > 60.00
[2024-12-22 06:00] VITALS: BMI 23.0
[2024-12-22] MEDS: SYMBICORT 80/4.5 MCG INHALER 2 PUFF INH (08:23)
--- NOTE | 2024-12-22 09:00 | PTCARENOTE ---
received PT from nightshift RN; PT AAOx4 w/o complaints of pain; NS on monitor VSS; RA 98% clear lungs; GI & wnl; all surgical sights CDI; see worklist for detailed assessment
[2024-12-22] MEDS: SENOKOT-S 1 TABLET PO (09:52)
[2024-12-22] MEDS: ELIQUIS 5 MG PO (09:52)
[2024-12-22] MEDS: LOW STRENGTH ASPIRIN 81 MG PO (09:53)
[2024-12-22] MEDS: THERAGRAN 1 TABLET PO (09:53)
[2024-12-22] MEDS: KCL 10 MEQ PO (09:53)
[2024-12-22] MEDS: VITAMIN D3 (cholecalciferol) 25 MCG PO (09:53)
[2024-12-22] MEDS: NEURONTIN 100 MG PO (09:53)
[2024-12-22] MEDS: LASIX 40 MG PO (09:53)
[2024-12-22] MEDS: PROTONIX 40 MG PO (09:53)
[2024-12-22] MEDS: TOPROL XL 12.5 MG PO (09:54)
--- NOTE | 2024-12-22 11:44 | W.DCSUMMARY ---
Discharge Summary
Discharge Data
Date of Admission: 12/09/24
Date of Discharge: 12/22/24
-
Pending Results: No
Hospital Course
Primary care physician: Brian Perez
Outpatient wireless engineer: Sumanth Rahman ([facility])
Inpatient consultants: [facility] cardiology, pulmonary chrome cleaner, internal medicine
Procedures:
1. Complex mitral valve repair, maze, left atrial appendage clip
Primary Diagnosis:
1. 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
Secondary Diagnoses:
1. Acute HFpEF
2. Afib
3. IVORY suspect [id number]
4. Hyponatremia likely d/t fluid overload
5. GERD
6. asthma
7. Osteoporosis (completed 4th dose Reclast)
8. Postoperative accelerated junctional rhythm-resolved
9. Severe pulmonary hypertension
10 Mild-moderate aortic valve stenosis
11. Mild RV dysfunction
12. Chronic RBBB
13. Inguinal hernia repair
14. Acute postop blood loss/Anemia (stable, without blood transfusion)
15. Acute postop thrombocytopenia (stable without active bleed)
16. Acute postop atelectasis
17. Acute postop hypovolemia with subsequent hypervolemia
18. Acute postop CHB S/P A/V paced postop
19. Acute postop junctional/accelerated junctional rhythm
HPI: 74 y/o male with known severe MV regurgitation presented to [facility] on 12/09/24 with complaints of progressive exercise intolerance, exertional dyspnea, and orthopnea for the past few months. Patient was found to have moderate MR
in April 2024. A stress echo in September 2024 reported severe MR and moderate TR with severe pHTN. He was being followed by Dr. Jeff at [facility] for his mitral regurgitation. Over the last few days patient reports significant shortness of breath which
prompted the emergency room evaluation. Patient does endorse a recent GI bug when they went to [place]. At that time, complained of nausea, vomiting, and diarrhea about 24 hrs. Patient recently diagnosed with atrial fibrillation in which he was
started on Eliquis and Lopressor. While in the emergency room, he was found to be in Afib with RVR, hyponatremia, hyperkalemia, and a IVORY (creat 1.7).
Hospital course: Patient was medically optimized and underwent left heart cath on 12/13/2024 which reported nonobstructive coronary disease. Patient transitioned from Eliquis to IV heparin in preparation for surgery. He was taken to the operating
room on 12/16/24 for complex mitral valve reconstruction [triangular resection of P2 P3 with primary reapproximation, cleft closure between P1 and P2, 6 sets of [place]-Dominic cords with 3 placed to the anterior leaflet and 3 placed to the posterior
leaflet, 36 mm band annuloplasty, Free margin remodelling at AL commissure], left atrial maze [combination of cryo and RF ablation], and left atrial appendage exclusion [40 mm device] by Dr. Delano Orozco. For further details please see operative
note. Postprocedure KACY reported EF of 45-50% with mild�moderate tricuspid regurgitation and mild�moderate aortic stenosis. Patient received no intraoperative blood products and returned to CVICU on dobutamine, epinephrine, Precedex, and insulin.
Patient required AV pacing for postop complete heart block. Epinephrine was weaned off on postoperative day 1 and patient diuresed. Dobutamine was slowly weaned and ultimately off on postoperative day #4 with continual daily diuresis. Patient
experienced postoperative accelerated junctional rhythm which improved to sinus rhythm with first-degree AV block. Therefore amiodarone was not resumed. Temporary pacing wires, chest drains, and [place] were removed on postoperative day #2. Eliquis
was resumed on postoperative day #3. Patient was independent with ambulation and deemed stable for discharge on postoperative day #5. Sodium improved from 130-133. Creatinine returned to baseline at 0.8. Hemoglobin stable at 10. Patient will be
followed by transitional care nurse on discharge.
Home medication changes:
Completed fourth dose of Reclast
Lansoprazole changed to Protonix while on Eliquis
Toprol XL 25 mg reduced to 12.5 mg daily as blood pressure on the lower normal range
Lasix 40 mg daily and potassium 10 mEq twice daily
Discharge Plan
-
Patient Disposition: Home (Routine Discharge)
Discharge Diagnosis/Procedures: mitral repair, MAZE, left atrial appendageclip
Condition: Good
Diet: Low Cholesterol and Low Sodium
Activity: No strenuous activity
Driving Restrictions: Not until seen by your Dr
Bathing Restrictions: OK to Shower
Blood Work: BMP in 1 week
Other Services: Cardiac Rehab
Specialty Instructions: Weigh Daily- Call MD for wt gain/loss 3 lbs overnight/5 lbs in 1 week
Instructions: *PCP/Other [facility] Heart Failure Instructions
Stand Alone Forms: DC Instructions- Cath/EP Lab
Referrals:
CT Transitional Care Nurse [Outside] - in one to two days
(
The Cardiothoracic Transitional Care Nurse will call you to set up a visit in 1-2 days.)
Maranda Mcghee MD [Active] - in one to two months (Asthma, Pulmonary nodule)
Rosio Longo CRNP [Specified Professional Personl] - 01/27/25 9:40 am
Delano Orozco MD [Active] - 01/20/25 2:00 pm
Shira Tracey DO [Family Provider] - in four to six weeks (Please make an appointment in four to six weeks. )
Prescriptions:
New
aspirin 81 mg Tablet,Chewable
81 mg PO DAILY Qty: 0 0RF
metoprolol succinate 25 mg Tablet Extended Release 24 Hr
12.5 mg PO DAILY Qty: 30 1RF
furosemide 40 mg Tablet
40 mg PO DAILY Qty: 20 0RF
pantoprazole 40 mg Tablet,Delayed Release (Dr/Ec)
40 mg PO DAILY Qty: 30 1RF
potassium chloride 10 mEq Tablet,Er Particles/Crystals
10 meq PO BID Qty: 40 0RF
gabapentin 100 mg Capsule
100 mg PO TID Qty: 30 0RF
oxycodone 5 mg Tablet
5 mg PO Q4HPRN PRN (Reason: severe pain) Qty: 10 0RF
Continued
Eliquis 5 mg Tablet
5 mg PO BID
therapeutic multivitamin Tablet
1 tab PO DAILY
cholecalciferol (vitamin D3) [Vitamin D3] 25 mcg (1,000 unit) Tablet
25 mcg PO DAILY
fluticasone furoate-vilanterol [Breo Ellipta] 100-25 mcg/dose Blister With Device
1 inh INHALATION R DAILY
diphenhydramine-acetaminophen [Acetaminophen PM] 25-500 mg Tablet
1 tab PO HSPRN PRN (Reason: sleep)
Discontinued
lansoprazole 15 mg Capsule,Delayed Release(Dr/Ec)
15 mg PO DAILY
metoprolol succinate [Toprol XL] 25 mg Tablet Extended Release 24 Hr
25 mg PO DAILY
zoledronic [id number] [Reclast] 5 mg/100 mL Piggyback
5 mg IV Q365D
Discharge Orders:
Discharge Patient (As Directed); Ordered 12/22/24
Ordered By: Teresita Sarkar
Care Plan Goals
Care Plan Goals:
Problem: Readiness for enhanced knowledge related to diagnosis and treatment plan
Goal: Understand your diagnosis and treatment plan needs, including medications if applicable.
Instructions: Know your diagnosis, underlying causes and treatment plan options, including medications if applicable. Consult with your health care team to learn about your diagnosis and treatment plan, including medications if applicable.
Discharge Date and Time
Print Language: SLOVAK
[2024-12-22 12:25] VITALS: BP 103/73
--- NOTE | 2024-12-22 13:59 | PTCARENOTE ---
PT discharged; reviewed all discharge instructions/upcoming appointments/ medications with pT and ; PT verbalizes understanding all instructions; IV removed, Tele pads and Box removed; PT dressed w/ at bedside; PT discharged and transported
via wheelchair to vehicle
== END 2024-12-22 12:30 | disposition home or self-care (01) | DRG 216 ==
LOC: CVICU 19:55
PROVIDERS: Anesthesiology; Clinical Nurse Specialist Acute Care; Emergency Medicine; Internal Medicine Interventional Cardiology; Nurse Practitioner; Nurse Practitioner Family; ADMITTING PHYSICIAN Internal Medicine; ATTENDING PHYSICIAN Thoracic Surgery (Cardiothoracic Vascular Surgery); CONSULT PHYSICIAN Internal Medicine; CONSULT PHYSICIAN Nuclear Medicine Nuclear Cardiology; EMERGENCY PHYSICIAN Student in an Organized Health Care Education/Training Program; FAMILY PHYSICIAN Family Medicine Geriatric Medicine
PROC: B2151ZZ Fluoroscopy of Left Heart using Low Osmolar Contrast (ICD-10-PCS; 2024-12-13)
PROC: 4A023N8 Measurement of Cardiac Sampling and Pressure, Bilateral, Percutaneous Approach (ICD-10-PCS; 2024-12-13)
PROC: B2111ZZ Fluoroscopy of Multiple Coronary Arteries using Low Osmolar Contrast (ICD-10-PCS; 2024-12-13)
PROC: 02580ZZ Destruction of Conduction Mechanism, Open Approach (ICD-10-PCS; 2024-12-16)
PROC: 5A1221Z Performance of Cardiac Output, Continuous (ICD-10-PCS; 2024-12-16)
PROC: 02UG0JZ Supplement Mitral Valve with Synthetic Substitute, Open Approach (ICD-10-PCS; 2024-12-16)
PROC: B24BZZ4 Ultrasonography of Heart with Aorta, Transesophageal (ICD-10-PCS; 2024-12-16)
PROC: 02BG0ZZ Excision of Mitral Valve, Open Approach (ICD-10-PCS; 2024-12-16)
PROC: 02L70CK Occlusion of Left Atrial Appendage with Extraluminal Device, Open Approach (ICD-10-PCS; 2024-12-16)
DX: I34.1 Nonrheumatic mitral (valve) prolapse (principal); I50.43 Acute on chronic combined systolic (congestive) and diastolic (congestive) heart failure; I51.1 Rupture of chordae tendineae, not elsewhere classified; E87.1 Hypo-osmolality and hyponatremia; N17.9 Acute kidney failure, unspecified; I13.0 Hypertensive heart and chronic kidney disease with heart failure and stage 1 through stage 4 chronic kidney disease, or unspecified chronic kidney disease; D62 Acute posthemorrhagic anemia; J98.11 Atelectasis; I44.2 Atrioventricular block, complete; I48.92 Unspecified atrial flutter; I34.0 Nonrheumatic mitral (valve) insufficiency; J45.909 Unspecified asthma, uncomplicated; I48.0 Paroxysmal atrial fibrillation; K21.9 Gastro-esophageal reflux disease without esophagitis; I27.20 Pulmonary hypertension, unspecified; E87.5 Hyperkalemia; I35.0 Nonrheumatic aortic (valve) stenosis; N18.9 Chronic kidney disease, unspecified; R91.1 Solitary pulmonary nodule; M81.0 Age-related osteoporosis without current pathological fracture; D69.59 Other secondary thrombocytopenia; E86.1 Hypovolemia; I49.8 Other specified cardiac arrhythmias; I36.1 Nonrheumatic tricuspid (valve) insufficiency; Z79.01 Long term (current) use of anticoagulants; Z79.899 Other long term (current) drug therapy; Z82.49 Family history of ischemic heart disease and other diseases of the circulatory system; Z87.891 Personal history of nicotine dependence
CPT/HCPCS: 88305; 93308; 70355; 71045; 71046; 71250; 74174; 76700; 78226; 80048; 80053; 80061; 81003; 81015; 82248; 82330; 82565; 82805; 82810; 82947; 82962; 83036; 83735; 83880; 84100; 84132; 84302; 84443; 84484; 84520; 85014; 85018; 85025; 85027; 85049; 85610; 85730; 86803; 86850; 86900; 86901; 86920; 93005; 93306; 93312; 93320; 93321; 93325; 93460; 93880; 94002; 94060; 94640; 96374; 96375; 97116; 97162; 97166; 99152; 99153; 99285; A9537; C1894; J2916; Q9967

== ENCOUNTER → 2025-06-02 14:32 | Outpatient (REF) | payer MEDICARE, OTHER, SELFPAY | LOC: RAD 14:32 | PROVIDERS: ATTENDING PHYSICIAN Internal Medicine; FAMILY PHYSICIAN Internal Medicine | DX: R91.1 Solitary pulmonary nodule (principal); R59.0 Localized enlarged lymph nodes | CPT/HCPCS: 71250 ==

== ENCOUNTER → 2025-07-01 09:00 | Outpatient (REF) | payer MEDICARE, OTHER, SELFPAY | LOC: HWRCS 09:00 | PROVIDERS: ATTENDING PHYSICIAN Thoracic Surgery (Cardiothoracic Vascular Surgery) | DX: Z98.890 Other specified postprocedural states (principal) | CPT/HCPCS: 93306 ==